=== PATIENT | male | born 1950 | race Caucasian/White ===

== ENCOUNTER 2016-03-29 08:42 | Outpatient (RCR) | payer MEDICARE, MEDICAID ==
--- OUTSIDE RECORDS SUMMARY | 2016-03-29 08:45 | XMS REPORT | Continuity of Care Document ---
Author Author [facility] Organization [facility] Address Unknown Phone Unavailable Care Team Providers Care Clinical Trial Specialist Name Role Phone Jack HUFF DO PCP Insurance Providers Payer Name Policy Number Subscriber Name Relationship [employer] [id number] Rikki Manzo 18 Self / Same As Patient Medicaid [place] [id number] Rikki Manzo 18 Self / Same As Patient Problems No problem information available. Medications No medication information available. Social History Social History Problem Response Recorded Date/Time Recent Foreign Travel N SEE YARED 09/20/2015 8:39am Hospital Discharge Instructions No hospital discharge instructions. Plan of Care Prescriptions See Medication Section Functional Status No functional status results. Allergies, Adverse Reactions, Alerts No known allergies. Immunizations No immunization records. Vital Signs No known vital signs results. Results Laboratory Results Test Name Result Units Flags Reference Collection Date/Time Result Date/ Time Comments White Blood Count 5.3 10^3/uL 4.3-11.0 09/20/2015 8:57am 09/20/2015 9: 14am Red Blood Count 4.40 10^6/uL 4.35-5.85 09/20/2015 8:57am 09/20/2015 9: 14am Hemoglobin 14.0 G/DL 13.3-17.7 09/20/2015 8:57am 09/20/2015 9:14am Hematocrit 40 % 40-54 09/20/2015 8:57am 09/20/2015 9:14am Mean Corpuscular Volume 91 FL 80-99 09/20/2015 8:57am 09/20/2015 9: 14am Mean Corpuscular Hemoglobin 32 PG 25-34 09/20/2015 8:57am 09/20/2015 9: 14am Mean Corpuscular Hemoglobin Concent 35 G/DL 32-36 09/20/2015 8:57am 02/2016 9:14am Red Cell Distribution Width 13.1 % 10.0-14.5 09/20/2015 8:57am 2015 9:14am Platelet Count 169 10^3/uL 130-400 09/20/2015 8:57am 09/20/2015 9:14am Mean Platelet Volume 10.4 FL 7.4-10.4 09/20/2015 8:57am 09/20/2015 9: 14am Neutrophils (%) (Auto) 49 % 42-75 09/20/2015 8:57am 09/20/2015 9:14am Lymphocytes (%) (Auto) 37 % 12-44 09/20/2015 8:57am 09/20/2015 9:14am Monocytes (%) (Auto) 8 % 0-12 09/20/2015 8:57am 09/20/2015 9:14am Eosinophils (%) (Auto) 6 % 0-10 09/20/2015 8:57am 09/20/2015 9:14am Basophils (%) (Auto) 1 % 0-10 09/20/2015 8:57am 09/20/2015 9:14am Neutrophils # (Auto) 2.6 X 10^3 1.8-7.8 09/20/2015 8:57am 09/20/2015 9: 14am Lymphocytes # (Auto) 2.0 X 10^3 1.0-4.0 09/20/2015 8:57am 09/20/2015 9: 14am Monocytes # (Auto) 0.4 X 10^3 0.0-1.0 09/20/2015 8:57am 09/20/2015 9: 14am Eosinophils # (Auto) 0.3 10^3/uL 0.0-0.3 09/20/2015 8:57am 09/20/2015 9 :14am Basophils # (Auto) 0.0 10^3/uL 0.0-0.1 09/20/2015 8:57am 09/20/2015 9: 14am Sodium Level 138 MMOL/L 135-145 09/20/2015 8:57am 09/20/2015 9:31am Potassium Level 4.1 MMOL/L 3.6-5.0 09/20/2015 8:57am 09/20/2015 9:31am Chloride Level 105 MMOL/L 98-107 09/20/2015 8:57am 09/20/2015 9:31am Carbon Dioxide Level 21 MMOL/L 21-32 09/20/2015 8:57am 09/20/2015 9: 31am Anion Gap 12 MMOL/L 5-14 09/20/2015 8:57am 09/20/2015 9:31am Blood Urea Nitrogen 17 MG/DL 7-18 09/20/2015 8:57am 09/20/2015 9:31am Creatinine 0.79 MG/DL 0.60-1.30 09/20/2015 8:57am 09/20/2015 9:31am BUN/Creatinine Ratio 22 09/20/2015 8:57am 09/20/2015 9:31am Estimat Glomerular Filtration Rate > 60 09/20/2015 8:57am 2015 9:31am GFR INTERPRETIVE DATA UNITS FOR ESTIMATED GFR (eGFR): mL/min/1.73 M2 REFERENCE RANGE FOR ESTIMATED GFR (eGFR) eGFR NORMAL eGFR >60 MODERATELY DECREASED eGFR 30-59 SEVERLY DECREASED eGFR 15-29 KIDNEY FAILURE <15 (OR DIALYSIS) Glucose Level 206 MG/DL H 70-105 09/20/2015 8:57am 09/20/2015 9:31am Calcium Level 9.0 MG/DL 8.5-10.1 09/20/2015 8:57am 09/20/2015 9:31am Total Bilirubin 1.4 MG/DL H 0.1-1.0 09/20/2015 8:57am 09/20/2015 9:31am Alkaline Phosphatase 55 U/L 40-136 09/20/2015 8:57am 09/20/2015 9:31am Aspartate Amino Transf (AST/SGOT) 31 U/L 5-34 09/20/2015 8:57am 2015 9:31am Alanine Aminotransferase (ALT/SGPT) 46 U/L 0-55 09/20/2015 8:57am 09/19 9:31am Lactate Dehydrogenase 171 U/L 125-220 09/20/2015 8:57am 09/20/2015 9: 31am Total Protein 6.4 G/DL 6.4-8.2 09/20/2015 8:57am 09/20/2015 9:31am Albumin 4.2 G/DL 3.2-4.5 09/20/2015 8:57am 09/20/2015 9:31am Ozcp-2-Gztrnfzytuykv 1.73 mg/L 0.00-1.85 09/20/2015 8:57am 09/21/2015 8 :15am Test performed at [facility], CLIA# [id number] [place] [address] Procedures No known history of procedures. Encounters Encounter Location Arrival/Admit Date Discharge/Depart Date Attending Provider Discharged [facility] 09/20/15 8:40am 11:59pm CRUZITO LEDBETTER MD
[2016-03-29 09:02] LABS: BASOPHILS % (AUTO) 0 % (0-10); EOSINOPHILS # (AUTO) 0.4 10^3/uL (0.0-0.3); EOSINOPHILS % (AUTO) 5 % (0-10); LYMPHOCYTES # (AUTO) 2.9 X 10^3 (1.0-4.0); LYMPHOCYTES % (AUTO) 40 % (12-44); MEAN CORPUSCULAR HEMOGLOBIN 31 PG (25-34); MEAN CORPUSCULAR HGB CONC 34 G/DL (32-36); MEAN CORPUSCULAR VOLUME 91 FL (80-99); MEAN PLATELET VOLUME 10.1 FL (7.4-10.4); MONOCYTES # (AUTO) 0.4 X 10^3 (0.0-1.0); MONOCYTES % (AUTO) 6 % (0-12); NEUTROPHILS # (AUTO) 3.5 X 10^3 (1.8-7.8); NEUTROPHILS % (AUTO) 49 % (42-75); PLATELET COUNT 204 10^3/uL (130-400); RED BLOOD COUNT 4.34 10^6/uL (4.35-5.85); RED CELL DISTRIBUTION WIDTH 12.6 % (10.0-14.5); WHITE BLOOD COUNT 7.1 10^3/uL (4.3-11.0)
[2016-03-29 09:40] LABS: ALANINE AMINOTRANSFERASE 36 U/L (0-55); ALBUMIN 4.2 G/DL (3.2-4.5); ANION GAP 9 MMOL/L (5-14); ASPARTATE AMINO TRANSFERASE 27 U/L (5-34); BILIRUBIN,TOTAL 1.9 MG/DL (0.1-1.0); BLOOD UREA NITROGEN 13 MG/DL (7-18); BUN/CREATININE RATIO 15; CALCIUM 8.9 MG/DL (8.5-10.1); CARBON DIOXIDE 24 MMOL/L (21-32); CHLORIDE 106 MMOL/L (98-107); CREATININE SERUM 0.88 MG/DL (0.60-1.30); GFR ESTIMATED > 60; GLUCOSE 130 MG/DL (70-105); LACTATE DEHYDROGENASE 192 U/L (125-220); POTASSIUM 4.2 MMOL/L (3.6-5.0); SODIUM 139 MMOL/L (135-145); TOTAL PROTEIN 6.4 G/DL (6.4-8.2)
== END 2016-06-27 | disposition home or self-care (01) ==
LOC: ONC 08:42
PROVIDERS: ATTEND Internal Medicine Hematology & Oncology
DX: C91.10 Chronic lymphocytic leukemia of B-cell type not having achieved remission (principal); J44.9 Chronic obstructive pulmonary disease, unspecified; F32.9 Major depressive disorder, single episode, unspecified; I48.91 Unspecified atrial fibrillation; Z79.899 Other long term (current) drug therapy
CPT/HCPCS: 36415; 80053; 82232; 83615; 85025; 99213

== ENCOUNTER → 2016-07-27 | Outpatient (CLI) | payer MEDICARE, MEDICAID ==
--- NOTE | 2016-07-30 09:41 | ECHOCARDIOGRAPHY REPORT ---
DATE OF SERVICE: 07/27/2016 REFERRING PHYSICIAN: Dr. Canelo D.O. MEASUREMENT: LVID end-diastolic 5.5. IVS thickness 1.2, LVPW thickness 1.0, left atrial diameter 3.3, ejection fraction 45 to 50%. FINDINGS: 1. Technically difficult study. 2. The left ventricle is normal in size, endocardium was not well visualized in all segment, I am suspecting hypokinesia at the apical area and anterior apical area, although it was not well visualized, patient was in atrial fibrillation with borderline tachycardia. Overall, systolic function is preserved in the lower normal limit. Estimated ejection fraction 45 to 50%. 3. The left atrium is normal in size. No clot or thrombus was seen within the left atrium. 4. The right atrium and right ventricle are normal in size. No clot or thrombus was seen within the right side. 5. Mitral valve is normal in morphology with mild mitral regurgitation noted by color Doppler flow. No mitral valve prolapse. No mitral valve stenosis. 6. Aortic valve is calcified. There is no significant aortic valve stenosis or regurgitation was seen. 7. Tricuspid valve is normal in morphology with mild tricuspid regurgitation noted by color Doppler flow. Doppler across the tricuspid valve estimated pulmonary artery pressure of 10+ right atrial pressure. 8. Pulmonic valve is functioning normally. 9. No pericardial effusion. CONCLUSION: 1. Technically difficult study. 2. Normal left ventricular size, endocardium was not well visualized in all segments, questionable hypokinesia was noted at the apex and anteroapical segment with systolic function preserved in the lower normal limit. Estimated ejection fraction 45 to 50%, I recommend reevaluating echo or evaluating MUGA scan. 3. Aortic valve sclerosis, no aortic stenosis. 4. Mild mitral and tricuspid regurgitation. 5. Estimated pulmonary artery pressure of 20 mmHg. Job ID: [id number] DocumentID: [id number] Dictated Date: 07/30/2016 08:08:01 Singe Machine Operator Date: 07/30/2016 08:42:14 Dictated By: JASMINA SHARMA MD
== END ==
LOC: CARD 10:00
PROVIDERS: ATTEND Internal Medicine Cardiovascular Disease
DX: I48.0 Paroxysmal atrial fibrillation (principal); D80.1 Nonfamilial hypogammaglobulinemia; J44.9 Chronic obstructive pulmonary disease, unspecified; C91.10 Chronic lymphocytic leukemia of B-cell type not having achieved remission
CPT/HCPCS: 93306

== ENCOUNTER 2016-09-27 09:48 | Outpatient (RCR) | payer MEDICARE, MEDICAID ==
[2016-09-27 09:54] LABS: BASOPHILS % (AUTO) 0 % (0-10); EOSINOPHILS # (AUTO) 0.5 10^3/uL (0.0-0.3); EOSINOPHILS % (AUTO) 6 % (0-10); LYMPHOCYTES # (AUTO) 3.4 X 10^3 (1.0-4.0); LYMPHOCYTES % (AUTO) 42 % (12-44); MEAN CORPUSCULAR HEMOGLOBIN 31 PG (25-34); MEAN CORPUSCULAR HGB CONC 33 G/DL (32-36); MEAN CORPUSCULAR VOLUME 93 FL (80-99); MEAN PLATELET VOLUME 9.7 FL (7.4-10.4); MONOCYTES # (AUTO) 0.6 X 10^3 (0.0-1.0); MONOCYTES % (AUTO) 7 % (0-12); NEUTROPHILS # (AUTO) 3.8 X 10^3 (1.8-7.8); NEUTROPHILS % (AUTO) 45 % (42-75); PLATELET COUNT 189 10^3/uL (130-400); RED BLOOD COUNT 4.43 10^6/uL (4.35-5.85); RED CELL DISTRIBUTION WIDTH 13.3 % (10.0-14.5); WHITE BLOOD COUNT 8.3 10^3/uL (4.3-11.0)
[2016-09-27 10:30] LABS: ALANINE AMINOTRANSFERASE 29 U/L (0-55); ALBUMIN 4.1 GM/DL (3.2-4.5); ANION GAP 8 MMOL/L (5-14); ASPARTATE AMINO TRANSFERASE 22 U/L (5-34); BILIRUBIN,TOTAL 1.9 MG/DL (0.1-1.0); BLOOD UREA NITROGEN 15 MG/DL (7-18); BUN/CREATININE RATIO 17; CALCIUM 9.1 MG/DL (8.5-10.1); CARBON DIOXIDE 25 MMOL/L (21-32); CHLORIDE 107 MMOL/L (98-107); CREATININE SERUM 0.86 MG/DL (0.60-1.30); GFR ESTIMATED > 60; GLUCOSE 157 MG/DL (70-105); LACTATE DEHYDROGENASE 150 U/L (125-220); POTASSIUM 4.1 MMOL/L (3.6-5.0); SODIUM 140 MMOL/L (135-145); TOTAL PROTEIN 6.5 GM/DL (6.4-8.2)
[2016-10-25] MEDS ORDERED: ESCI10TA55 PO (12:23)
[2016-10-25] MEDS ORDERED: HYDR-3820 PO (12:23)
[2016-10-25] MEDS ORDERED: SOTA120T PO (13:20)
[2016-10-25] MEDS ORDERED: DIPH25TA31 PO (13:20)
[2016-10-25] MEDS ORDERED: ASPI-808 PO (13:20)
[2016-10-26] MEDS ORDERED: SOTA160T PO ×2 (09:50→09:52)
[2016-10-27] MEDS ORDERED: Sotalol Hcl PO (13:24)
[2016-10-27] MEDS ORDERED: APIX5TAB PO (13:24)
[2016-10-27] MEDS ORDERED: SOTA80TA PO (13:34)
== END 2016-12-08 | disposition home or self-care (01) ==
LOC: ONC 09:48
PROVIDERS: ATTEND Internal Medicine Hematology & Oncology
DX: C91.10 Chronic lymphocytic leukemia of B-cell type not having achieved remission (principal); J44.9 Chronic obstructive pulmonary disease, unspecified; F32.9 Major depressive disorder, single episode, unspecified; I48.91 Unspecified atrial fibrillation; Z79.899 Other long term (current) drug therapy
CPT/HCPCS: 36415; 80053; 83615; 85025; 99213

== ENCOUNTER 2016-10-25 11:00 | Inpatient (IN) | payer MEDICARE, MEDICAID ==
[2016-10-25] VITALS (13 sets, daily range): BP systolic 96–128; BP diastolic 67–94
[~2016-10-25] VITALS: Ht 177.8 cm; Wt 81.6 kg
[2016-10-25] MEDS ORDERED: NS (IVPB) 50 ML ONE ×2 (11:07→11:11)
[2016-10-25] MEDS ORDERED: CATHETER FLUSH 10 ML SYR IV PRN (11:15)
[2016-10-25] MEDS ORDERED: DILTIAZEM 25 MG/5 ML INJ (CARDIZEM) VIAL IVP NR (11:15)
[2016-10-25 11:44] LABS: MEAN PLATELET VOLUME 10.6 FL (7.4-10.4); RED BLOOD COUNT 4.35 10^6/uL (4.35-5.85); RED CELL DISTRIBUTION WIDTH 13.2 % (10.0-14.5)
[2016-10-25 12:05] LABS: ALANINE AMINOTRANSFERASE 27 U/L (0-55); ALBUMIN 4.1 GM/DL (3.2-4.5); ANION GAP 8 MMOL/L (5-14); ASPARTATE AMINO TRANSFERASE 30 U/L (5-34); BILIRUBIN,TOTAL 1.3 MG/DL (0.1-1.0); BLOOD UREA NITROGEN 12 MG/DL (7-18); BUN/CREATININE RATIO 16; CARBON DIOXIDE 21 MMOL/L (21-32); CHLORIDE 110 MMOL/L (98-107); CREATININE SERUM 0.77 MG/DL (0.60-1.30); GFR ESTIMATED > 60; GLUCOSE 119 MG/DL (70-105); POTASSIUM 4.8 MMOL/L (3.6-5.0); SODIUM 139 MMOL/L (135-145); TOTAL PROTEIN 6.7 GM/DL (6.4-8.2)
[2016-10-25] MEDS ORDERED: ESCI10TA55 PO (12:23)
[2016-10-25] MEDS ORDERED: HYDR-3820 PO (12:23)
[2016-10-25] MEDS: DILTIAZEM DRIP 100 MG in SODIUM CHLORIDE (ADD-VANTAGE) 100 ML IV SCH ×2 (12:28→22:03)
[2016-10-25] MEDS ORDERED: DIPH25TA31 PO (13:20)
[2016-10-25] MEDS ORDERED: SOTA120T PO (13:20)
[2016-10-25] MEDS ORDERED: ASPI-808 PO (13:20)
[2016-10-25 13:27] LABS: THYROID STIMULATING HORMONE 0.91 UIU/ML (0.35-4.94); TROPONIN I < 0.30 NG/ML (<0.30)
[2016-10-25] MEDS: ENOXAPARIN 100 MG/1 ML (LOVENOX) SYR SC SCH (13:47)
[2016-10-25] MEDS: SOTALOL 80 MG (BETAPACE) TAB PO SCH (20:49)
[2016-10-26] VITALS (24 sets, daily range): BP systolic 97–146; BP diastolic 69–101
[2016-10-26] MEDS: ENOXAPARIN 100 MG/1 ML (LOVENOX) SYR SC SCH (01:08)
[2016-10-26 04:13] LABS: BASOPHILS % (AUTO) 0 % (0-10); EOSINOPHILS # (AUTO) 0.7 10^3/uL (0.0-0.3); EOSINOPHILS % (AUTO) 8 % (0-10); LYMPHOCYTES # (AUTO) 4.7 X 10^3 (1.0-4.0); LYMPHOCYTES % (AUTO) 53 % (12-44); MEAN CORPUSCULAR HEMOGLOBIN 31 PG (25-34); MEAN CORPUSCULAR HGB CONC 33 G/DL (32-36); MEAN CORPUSCULAR VOLUME 95 FL (80-99); MEAN PLATELET VOLUME 10.7 FL (7.4-10.4); MONOCYTES # (AUTO) 0.5 X 10^3 (0.0-1.0); MONOCYTES % (AUTO) 6 % (0-12); NEUTROPHILS # (AUTO) 2.9 X 10^3 (1.8-7.8); NEUTROPHILS % (AUTO) 33 % (42-75); PLATELET COUNT 181 10^3/uL (130-400); RED BLOOD COUNT 4.19 10^6/uL (4.35-5.85); RED CELL DISTRIBUTION WIDTH 13.3 % (10.0-14.5); WHITE BLOOD COUNT 8.7 10^3/uL (4.3-11.0)
[2016-10-26 04:41] LABS: ANION GAP 12 MMOL/L (5-14); BLOOD UREA NITROGEN 13 MG/DL (7-18); BUN/CREATININE RATIO 17; CALCIUM 9.2 MG/DL (8.5-10.1); CARBON DIOXIDE 21 MMOL/L (21-32); CHLORIDE 108 MMOL/L (98-107); CREATININE SERUM 0.78 MG/DL (0.60-1.30); GFR ESTIMATED > 60; GLUCOSE 117 MG/DL (70-105); MAGNESIUM 2.1 MG/DL (1.8-2.4); PHOSPHORUS 3.5 MG/DL (2.3-4.7); POTASSIUM 3.7 MMOL/L (3.6-5.0); SODIUM 141 MMOL/L (135-145)
[2016-10-26] MEDS: MAGNESIUM 1 GM/100 ML IVPB 100 ML IV SCH (04:51)
[2016-10-26] MEDS: POTASSIUM CL 10MEQ/50ML IVPB 50 ML IV SCH (04:51)
[2016-10-26] MEDS: KCL 20 MEQ TAB (K-DUR) PO SCH (04:52)
--- NOTE | 2016-10-26 07:51 | Diagnostic Imaging Report ---
INDICATION: Atrial fibrillation with rapid ventricular response. TECHNIQUE: Single view chest 5:45 AM. CORRELATION STUDY: None FINDINGS: Heart size is enlarged. Vasculature slightly prominent without evidence of overt failure. Lung davidson overall generally clear. No definitive infiltrate. IMPRESSION: 1. Mild cardiac enlargement and vasculature. However, no evidence for overt failure at this time. Dictated by: Dictated on workstation # [id number]
[2016-10-26] MEDS: SOTALOL 80 MG (BETAPACE) TAB PO SCH ×2 (08:11→20:30)
--- NOTE | 2016-10-26 09:42 | Cardiology History & Physical ---
HPI-Cardiology Cardiology Consultation Date of Consultation 10/26/16 Date of Admission Time Seen by Provider: 09:37 Indication: atrial fibrillation HPI 66 years old gentleman with history of paroxysmal atrial fibrillation, seen in my office and noted to be in atrial flutter ablation without ventricular response, has been having Chest tightness, shortness of breath and fatigue with loss of energy. I discussed with him the management plan, he agreed on being admitted, started on Cardizem and digoxin, heart rate has slowed down without conversion to sinus rhythm. This morning I visited with the patient and discussed doing electrical cardioversion. PMH-Cardiology Immunizations Up To Date Date of Pneumonia Vaccine: Oct 26, 2015 Seasonal Allergies Seasonal Allergies: Yes Cardiovascular Cardiac Disorders: Atrial Fibrillation Genitourinary Genitourinary Disorders: Bladder Infection, Kidney Stones Gastrointestinal Gastrointestinal Disorders: Gastroesophageal Reflux, Polyps HEENT Loss of Vision: Left Hearing Impairment: Denies Cancer Cancer: Leukemia Psychosocial Behavioral Health Disorders: Sleep Difficulties, Anxiety, Depression Blood Transfusions Adverse Reaction to a Blood Tr: No Other PMHx Other PMHx: past medical history as discussed below Social History Patient Social History Marrital Status: Employed/Student: employed Alcohol Use: Denies Use Recreational Drug Use: No Smoking: Never smoker Recent Foreign Travel: No Contact w/other who traveled: No Recent Infectious Disease Expo: No Family Hx Family History: Cardiovascular disease 19 FATHER Diabetes mellitus 19 FATHER G8 SISTER G8 SISTER G8 SISTER FH: CHF (congestive heart failure) G8 SISTER FH: atrial fibrillation 19 FATHER Fatty liver G8 BROTHER TIAs 19 MOTHER ROS-Cardiology Review of Systems General: No Chills, No Night Sweats, Fatigue, Malaise, No Appetite HEENT: No Head Aches, No Visual Changes, No Eye Pain, No Ear Pain, No Dysphasia , No Sinus Congestion, No Post Nasal Drip, No Sore Throat Pulmonary: Dyspnea, No Cough, No Pleuritic Chest Pain Cardiovascular: Chest Pain, Palpitations, No: Orthopnea, Paroxysmal Noc. Dyspnea, Edema, Lt Headedness Gastrointestinal: No: Nausea, Vomiting, Abdominal Pain, Diarrhea, Constipation , Melena, Hematochezia Genitourinary: No Dysuria, No Frequency, No Incontinence, No Hematuria, No Retention Musculoskeletal: No: neck pain, shoulder pain, arm pain, back pain, hand pain, leg pain, foot pain Neurological: No: Weakness, Numbness, Incoordination, Change in speech, Confusion, Seizures Home Medications & Allergies Allergies: Coded Allergies: No Known Drug Allergies (Unverified , 08/21/13) Home Medication List Reviewed: Yes Exam-Cardiology Vital Signs Vital Signs Date Time Temp Pulse Resp B/P (MAP) Pulse Ox O2 Delivery O2 Flow Rate FiO2 10/26/16 08:10 97.8 73 9 112/82 95 Room Air Exam General Appearance: Alert, Oriented X3, Cooperative, No Acute Distress HEENT: Atraumatic, PERRLA Respiratory: Clear to Auscultation, Normal Air Movement Cardiovascular: Normal S1, Normal S2, No Murmurs, Other (atrial fibrillation) Abdominal: Normal Bowel Sounds, Soft, No Tenderness, No Hepatosplenomegaly, No Masses Extremities: No Clubbing, No Cyanosis, No Edema, Normal Pulses, No Tenderness/ Swelling Skin: No Rashes, No Breakdown, No Significant Lesion Neuro: Normal Gait, Normal Speech, Strength at 5/5 X4 Ext, Normal Tone, Sensation Intact Psych/Mental Status: Mental Status NL, Mood NL Results Labs Labs Laboratory Tests 10/25/16 11:35: White Blood Count 9.0, Red Blood Count 4.35, Hemoglobin 13.6, Hematocrit 41, Mean Corpuscular Volume 94, Mean Corpuscular Hemoglobin 31, Mean Corpuscular Hemoglobin Concent 33, Red Cell Distribution Width 13.2, Platelet Count 187, Mean Platelet Volume 10.6H, Sodium Level 139, Potassium Level 4.8, Chloride Level 110H, Carbon Dioxide Level 21, Anion Gap 8, Blood Urea Nitrogen 12, Creatinine 0.77, Estimat Glomerular Filtration Rate > 60, BUN/Creatinine Ratio 16, Glucose Level 119H, Calcium Level 9.0, Magnesium Level 2.4, Total Bilirubin 1.3H, Aspartate Amino Transf (AST/SGOT) 30, Alanine Aminotransferase (ALT/SGPT) 27, Alkaline Phosphatase 48, Troponin I < 0.30, B-Type Natriuretic Peptide 178.8H, Total Protein 6.7, Albumin 4.1, Thyroid Stimulating Hormone (TSH) 0.91 10/26/16 03:59: White Blood Count 8.7, Red Blood Count 4.19L, Hemoglobin 13.1L, Hematocrit 40, Mean Corpuscular Volume 95, Mean Corpuscular Hemoglobin 31, Mean Corpuscular Hemoglobin Concent 33, Red Cell Distribution Width 13.3, Platelet Count 181, Mean Platelet Volume 10.7H, Sodium Level 141, Potassium Level 3.7, Chloride Level 108H, Carbon Dioxide Level 21, Anion Gap 12, Blood Urea Nitrogen 13, Creatinine 0.78, Estimat Glomerular Filtration Rate > 60, BUN/Creatinine Ratio 17, Glucose Level 117H, Calcium Level 9.2, Magnesium Level 2.1, Neutrophils (%) (Auto) 33L, Lymphocytes (%) (Auto) 53H, Monocytes (%) (Auto) 6, Eosinophils (%) (Auto) 8, Basophils (%) (Auto) 0, Neutrophils # (Auto) 2.9, Lymphocytes # (Auto ) 4.7H, Monocytes # (Auto) 0.5, Eosinophils # (Auto) 0.7H, Basophils # (Auto) 0.0, Phosphorus Level 3.5 A/P-Cardiology Admission Diagnosis Chest pain nonspecific etiology Paroxysmal atrial fibrillation Congestive heart failure acute left ventricular systolic dysfunction, nonischemic cardiomyopathy Palpitation Assessment/Plan Chest pain, nonspecific etiology-no active chest pain at this time, EKG and cardiac enzymes did not show any acute abnormality, planning to do stress test as an outpatient. Paroxysmal atrial fibrillation, maintained on sotalol 60 mg daily, I increased the dose to 120 mg daily and I will monitor QT interval, planning to do electrical cardioversion with ANIKET today. Congestive heart failure, acute left ventricular systolic dysfunction, not symptomatic, ejection fraction 40-45 percent probably tachycardia induced. Planning to do stress test as an outpatient, maintained on sotalol, I will add VIOLETA inhibitor as tolerated. Recurrent palpitation, probably secondary to episodes of atrial fibrillation, Continue to monitor [id number] score of 2, yearly risk of stroke without oral anticoagulation is 2.2 percent. patient was on aspirin 325 mg daily, planning to do ANIKET and electrical cardioversion then continued on oral anticoagulation. Prediabetes, followed and managed by primary care physician, diet controlled History of chronic lymphocytic leukemia, followed and managed by Dr. Kayley Larry History of anxiety, depression, maintained on Lexapro. Clinical Quality Measures DVT/VTE Risk/Contraindication: Risk Factor Score Per Nursin RFS Level Per Nursing on Admit: 2=Moderate JASMINA SHARMA MD Oct 26, 2016 09:42
[2016-10-26] MEDS ORDERED: SOTA160T PO ×2 (09:50→09:52)
[2016-10-26] MEDS ORDERED: NS IV 1000 ML 1,000 ML IV ONE (10:08)
--- NOTE | 2016-10-26 10:08 | Cardiac Procedure Note-CS/ASA ---
Pre-Procedure Note Pre-Op Procedure Note H&P Reviewed The H&P was reviewed, patient examined and no changes noted. Date H&P Reviewed: Oct 26, 2016 Time H&P Reviewed: 10:08 Conscious Sedation Pre-Proced Time Reviewed: 10:08 ASA Class: 3 Airway Mallampati Classification: (lower [place] appropriate class) I. II. III, IV Lungs Heart ASA score ASA 1: a normal healthy patient ASA 2: a patient with a mild systemic disease (mid diabetes, controlled hypertension, obesity x ASA 3: a patient with a severe systemic disease that limits activity (angina , COPD, prior Myocardial infarction) ASA 4: a patient with an incapacitating disease that is a constant threat to life (CHF, renal failure) ASA 5: a moribund patient not expected to survive 24 hrs. (ruptured aneurysm) ASA 6: a declared brain patient whose organs are being harvested. For emergent operations, add the letter E after the classification Grade 3 Sedation Plan: Analgesia, Amnesia, Plan communicated to team members, Discussed options with patient/fam, Discussed risks with patient/fam Note The patient is an appropriate candidate to undergo the planned procedure, sedation, and anesthesia. The patient immediately re-assessed prior to indication. JASMINA SHARMA MD Oct 26, 2016 10:08
[2016-10-26] MEDS ORDERED: LIDOCAINE TOPICAL 4% 50 ML BTL MM PRN (10:15)
[2016-10-26] MEDS ORDERED: LIDOCAINE 2% VISCOUS 15 ML UDC ONE (10:21)
[2016-10-26] MEDS ORDERED: NS IV 500 ML 500 ML ONE (10:27)
[2016-10-26] MEDS ORDERED: LIDOCAINE 2% VISCOUS 15 ML UDC PO PRN (11:00)
--- NOTE | 2016-10-26 11:44 | Cardiac Procedure Note ---
Cardiology Procedures Date of Procedure 10/26/16 patient was scheduled for ANIKET and electrical cardioversion, after calling anesthesia and getting ready for the procedure, patient received oral lidocaine , did not start the procedure, patient converted to sinus rhythm, procedure was canceled. JASMINA SHARMA MD Oct 26, 2016 11:44
[2016-10-26] MEDS: lisINopril 5 MG (PRINIVIL) TABLET PO SCH (17:51)
[2016-10-26] MEDS: APIXABAN 5 MG (ELIQUIS) TABLET PO SCH (20:30)
[2016-10-27] VITALS (15 sets, daily range): BP systolic 111–146; BP diastolic 67–97
[2016-10-27 04:27] LABS: BASOPHILS % (AUTO) 0 % (0-10); EOSINOPHILS # (AUTO) 0.5 10^3/uL (0.0-0.3); EOSINOPHILS % (AUTO) 7 % (0-10); LYMPHOCYTES % (AUTO) 52 % (12-44); MEAN CORPUSCULAR HEMOGLOBIN 32 PG (25-34); MEAN CORPUSCULAR HGB CONC 33 G/DL (32-36); MEAN CORPUSCULAR VOLUME 95 FL (80-99); MEAN PLATELET VOLUME 10.6 FL (7.4-10.4); MONOCYTES # (AUTO) 0.4 X 10^3 (0.0-1.0); MONOCYTES % (AUTO) 5 % (0-12); NEUTROPHILS # (AUTO) 2.7 X 10^3 (1.8-7.8); NEUTROPHILS % (AUTO) 36 % (42-75); PLATELET COUNT 162 10^3/uL (130-400); WHITE BLOOD COUNT 7.6 10^3/uL (4.3-11.0)
[2016-10-27 05:02] LABS: ANION GAP 7 MMOL/L (5-14); BLOOD UREA NITROGEN 13 MG/DL (7-18); BUN/CREATININE RATIO 17; CALCIUM 8.9 MG/DL (8.5-10.1); CARBON DIOXIDE 25 MMOL/L (21-32); CHLORIDE 109 MMOL/L (98-107); CREATININE SERUM 0.78 MG/DL (0.60-1.30); GFR ESTIMATED > 60; GLUCOSE 100 MG/DL (70-105); MAGNESIUM 2.2 MG/DL (1.8-2.4); PHOSPHORUS 3.9 MG/DL (2.3-4.7); POTASSIUM 3.9 MMOL/L (3.6-5.0); SODIUM 141 MMOL/L (135-145)
[2016-10-27] MEDS: POTASSIUM CL 10MEQ/50ML IVPB 50 ML IV SCH (05:05)
[2016-10-27] MEDS: KCL 20 MEQ TAB (K-DUR) PO SCH (05:05)
[2016-10-27] MEDS: MAGNESIUM 1 GM/100 ML IVPB 100 ML IV SCH (05:05)
--- NOTE | 2016-10-27 08:54 | Diagnostic Imaging Report ---
INDICATION: Atrial fibrillation. FINDINGS: The lungs are clear. The heart size and vascularity are within normal limits. There is no effusion or pneumothorax. IMPRESSION: No acute appearing abnormality. Dictated by: Dictated on workstation # [id number]
[2016-10-27] MEDS: APIXABAN 5 MG (ELIQUIS) TABLET PO SCH (09:10)
[2016-10-27] MEDS: lisINopril 5 MG (PRINIVIL) TABLET PO SCH (09:11)
[2016-10-27] MEDS: SOTALOL 80 MG (BETAPACE) TAB PO SCH (09:13)
[2016-10-27] MEDS ORDERED: APIX5TAB PO (13:24)
[2016-10-27] MEDS ORDERED: Sotalol Hcl PO (13:24)
--- NOTE | 2016-10-27 13:29 | Progress Note-Cardiology ---
Cardiology SOAP Progress Note Subjective: Feels well. No cp or palp or syncope or shortness of breath or leg swelling or other symptoms Wishes to go home States has been on sotalol for a number of years. Had been on 120 bid, then changed to 60 bid because of dizziness; this was changed back to [address] Morris on 10/25/16. He states he has tolerated the change in dose well Objective: I&O/Vital Signs Vital Sign - Last 12Hours 10/27/16 10/27/16 10/27/16 10/27/16 02:00 03:00 03:55 04:00 Temp 97.8 Pulse 69 75 Resp 29 26 B/P (MAP) 116/85 130/95 Pulse Ox 94 98 O2 Delivery Room Air Room Air Room Air Room Air 10/27/16 10/27/16 10/27/16 10/27/16 04:00 05:00 06:00 07:00 Pulse 56 57 57 59 Resp 16 25 13 B/P (MAP) 112/75 118/77 121/79 Pulse Ox 95 94 67 O2 Delivery Room Air Room Air Room Air 10/27/16 10/27/16 10/27/16 10/27/16 08:00 08:10 12:45 12:50 Temp 96.7 98.4 Pulse 57 Resp 25 B/P (MAP) 111/73 Pulse Ox 96 O2 Delivery Room Air Room Air Room Air Room Air Weight (Pounds): 180 Weight (Ounces): 9.0 Weight (Calculated Kilograms): 81.856926 Constitutional: AAO x 3, well-developed, well-nourished Respiratory: No accessory muscle use, No respiratory distress, lungs clear to percussion, lungs clear to auscultation, No stridor Cardiovascular: regular rate-rhythm, S1 and S2, systolic murmur (faint MICH at card base) Gastrointestional: No tender, soft, No guarding, No rebound, audible bowel sounds Extremities: No swelling, No clubbing, No cyanosis, No significant edema Neurologic/Psychiatric: oriented x 3, grossly intact, power is 5/5 both on sides Skin: No rash on exposed areas, No ulcerations on exposed areas Results/Procedures: Labs Laboratory Tests 10/27/16 04:06: White Blood Count 7.6, Red Blood Count 4.00L, Hemoglobin 12.6L, Hematocrit 38L, Mean Corpuscular Volume 95, Mean Corpuscular Hemoglobin 32, Mean Corpuscular Hemoglobin Concent 33, Red Cell Distribution Width 13.0, Platelet Count 162, Mean Platelet Volume 10.6H, Neutrophils (%) (Auto) 36L, Lymphocytes (%) (Auto) 52H, Monocytes (%) (Auto) 5, Eosinophils (%) (Auto) 7, Basophils (%) (Auto) 0, Neutrophils # (Auto) 2.7, Lymphocytes # (Auto) 4.0, Monocytes # (Auto) 0.4, Eosinophils # (Auto) 0.5H, Basophils # (Auto) 0.0, Sodium Level 141, Potassium Level 3.9, Chloride Level 109H, Carbon Dioxide Level 25, Anion Gap 7, Blood Urea Nitrogen 13, Creatinine 0.78, Estimat Glomerular Filtration Rate > 60, BUN/ Creatinine Ratio 17, Glucose Level 100, Calcium Level 8.9, Phosphorus Level 3.9 , Magnesium Level 2.2 Microbiology 10/25/16 MRSA Screen - Final, Complete MRSA not isolated Laboratory Tests 10/26/16 03:59 10/27/16 04:06 A/P: Assessment: Paroxysmal atrial fibrillation, maintaining NSR since 10/26/16 Chronic sotalol therapy. Dose increased during this hospitalization Borderline prolonged but stable QTc (around 500 msec) since admission and increase in the dose on 10/25/16 Impaired LVEF of 40-45%, felt to be tachycardia-related, VIOLETA-inhibitor added. Apixaban added for stroke prophylaxis History of chronic lymphocytic leukemia, followed and managed by Dr. Kayley Larry History of anxiety/depression for which he has been on Lexapro (being stopped at the time of discharge to avoid its effect on QT) Plan: Multiple issues reviewed and discussed He has been on sotalol for a number of years. He is on increased dose of sotalol since 10/25/16 QTc is borderline prolonged, but stable. Nevertheless, we are stopping Lexapro and reducing dose of sotalol to 80 mg bid (chronic home dose is 60 mg bid; was on 120 bid during this hospitalization) He is anxious to go home We have advised f/u with Dr Morris on 10/29/16 LO CERRATO MD [facility] Oct 27, 2016 13:29
[2016-10-27] MEDS ORDERED: SOTA80TA PO (13:34)
--- NOTE | 2016-10-27 13:45 | Cardiology Discharge Summary ---
Diagnosis/Chief Complaint Date of Admission Oct 25, 2016 at 11:00 Date of Discharge Final/Discharge Diagnosis Paroxysmal atrial fibrillation, maintaining NSR since 10/26/16 Chronic sotalol therapy. Dose increased during this hospitalization Borderline prolonged but stable QTc (around 500 msec) since admission and increase in the dose on 10/25/16 Impaired LVEF of 40-45%, felt to be tachycardia-related, VIOLETA-inhibitor added. Apixaban added for stroke prophylaxis History of chronic lymphocytic leukemia, followed and managed by Dr. Kayley Larry History of anxiety/depression for which he has been on Lexapro (being stopped at the time of discharge to avoid its effect on QT) Chief Complaint/HPI Chief Complaint/HPI Converted to NSR with increase in chronic sotalol dose (at time admission on ) He has been on sotalol for a number of years. He is on increased dose of sotalol since 10/25/16 QTc is borderline prolonged, but stable. Nevertheless, we are stopping Lexapro and reducing dose of sotalol to 80 mg bid (chronic home dose is 60 mg bid; was on 120 bid during this hospitalization) He is anxious to go home We have advised f/u with Dr Morris on 10/29/16 Discharge Summary Procedures None. Discussion & Recommendations Home Medications Reviewed patient Home Medication Reconciliation Form Discharge Home Medications: Reviewed and agree with Discharge Medication list on patient's Discharge Instruction sheet Clinical Quality Measures DVT/VTE Risk/Contraindication: Risk Factor Score Per Nursin RFS Level Per Nursing on Admit: 2=Moderate LO CERRATO MD FACP [facility]S Oct 27, 2016 13:44
--- NOTE | 2016-10-27 13:46 | Discharge Inst-Cardiology ---
Discharge Inst-Cardiac Discharge Medications New Medications: Sotalol HCl (Sotalol) 80 Mg Tablet 80 MG PO BID, #60 TAB 0 Refills Apixaban (Eliquis) 5 Mg Tablet 5 MG PO BID for 30 Days, #60 TAB 0 Refills Continued Medications: Diphenhydramine HCl (Diphenhydramine HCl) 25 Mg Tablet 25 MG PO TID PRN for RASH, TAB Hydrocodone/Acetaminophen (Hydrocodon-Acetaminophn 10-325) 1 Each Tablet 1 TAB PO Q4H PRN for PAIN-MODERATE Discontinued Medications: Escitalopram Oxalate (Escitalopram Oxalate) 10 Mg Tablet 5 MG PO BID TAKES 1/2 OF A (10 MG) TABLET Sotalol HCl (Sotalol) 120 Mg Tablet 60 MG PO DAILY TAKES 1/2 OF A (120 MG) TABLET Patient Instructions Patient Instructions: Home dose of sotalol is 80 mg po bid F/u with Dr Morris on 10/29/16 LO CERRATO MD [facility] Oct 27, 2016 13:46
== END 2016-10-27 14:25 | disposition home or self-care (01) | DRG 308 ==
LOC: ICU 11:00
PROVIDERS: ADMIT Internal Medicine Cardiovascular Disease; ATTEND Internal Medicine Cardiovascular Disease
DX: I48.0 Paroxysmal atrial fibrillation (principal); I48.92 Unspecified atrial flutter; I50.21 Acute systolic (congestive) heart failure; C91.10 Chronic lymphocytic leukemia of B-cell type not having achieved remission; I42.8 Other cardiomyopathies; I45.81 Long QT syndrome; R73.03 Prediabetes; F32.9 Major depressive disorder, single episode, unspecified; F41.9 Anxiety disorder, unspecified; Z79.899 Other long term (current) drug therapy
CPT/HCPCS: 36415; 71010; 80048; 80053; 83735; 83880; 84100; 84443; 84484; 85025; 85027; 87081; 93005; 93306

== ENCOUNTER → 2016-11-09 | Outpatient (CLI) | payer MEDICARE, MEDICAID ==
[~2016-11-09] MED LIST: APIX5TAB PO; ASPI-808 PO; CATHETER FLUSH 10 ML SYR IV PRN; DIPH25TA31 PO; ESCI10TA55 PO; HYDR-3820 PO; REGADENOSON 0.4 MG/5 ML SYR (LEXISCAN) IV ONE; SOTA120T PO; SOTA160T PO; SOTA80TA PO; Sotalol Hcl PO
[2016-11-09 08:06] VITALS: BP 115/81
--- NOTE | 2016-11-14 12:22 | STRESS TEST ---
DATE OF SERVICE: 11/09/2016 LEXISCAN MYOVIEW STRESS TEST REPORT TEST DATE: 11/09/2016 Baseline heart rate is 60%. Baseline blood pressure 126/82. Baseline EKG is sinus rhythm with no ischemic changes. In summary, the patient was injected with 10.92 mCi of technetium-99 Myoview and the resting images were obtained. Then, the patient received 0.4 mg of Lexiscan followed by 29.2 mCi of technetium-99 Myoview. Throughout the test, there were no EKG changes. The patient had mild shortness of breath that resolved spontaneously. The resting and stress images were reviewed and compared in the short axis, horizontal long axis, and vertical long axis views. Review of the images showed diaphragmatic attenuation with typical male pattern. No significant ischemia or infarction was seen. SSS is 2, SDS 2, TID value 0.95. On the gated images, the left ventricle appeared to be in normal size, calculated ejection fraction 54%. CONCLUSION: 1. The patient tolerated the Lexiscan well. 2. Diaphragmatic attenuation with typical male pattern with no significant ischemia or infarction on SPECT images. 3. Normal left ventricular size with normal contractility, calculated ejection fraction 54%. Job ID: [id number] DocumentID: [id number] Dictated Date: 11/13/2016 15:16:54 Cloth Bin Packer Date: 11/13/2016 17:16:16 Dictated By: JASMINA SHARMA MD
== END ==
LOC: CARD 06:45
PROVIDERS: ATTEND Physician Assistant
DX: I48.0 Paroxysmal atrial fibrillation (principal); R07.89 Other chest pain; R00.2 Palpitations; C91.10 Chronic lymphocytic leukemia of B-cell type not having achieved remission
CPT/HCPCS: 78452; 93017

== ENCOUNTER 2017-05-27 07:17 | Day surgery (SDC) | payer MEDICARE, MEDICAID ==
[2017-05-27] VITALS (28 sets, daily range): BP systolic 88–140; BP diastolic 66–105
[~2017-05-27] VITALS: Ht 177.8 cm; Wt 81.9 kg
[~2017-05-27 07:17] MED LIST changes: -CATHETER FLUSH 10 ML SYR IV PRN; -REGADENOSON 0.4 MG/5 ML SYR (LEXISCAN) IV ONE
[2017-05-27] MEDS ORDERED: LIDOCAINE 2% VISCOUS 15 ML UDC ONE (07:22)
--- OUTSIDE RECORDS SUMMARY | 2017-05-27 07:22 | XMS REPORT | Continuity of Care Document ---
Author Author [facility] Organization [facility] Address Unknown Phone Unavailable Allergies Active Description Code Type Severity Reaction Onset Reported/Identified Relationship to Patient Clinical Status Yes No Known Drug Allergies [id number] Drug Allergy Unknown N/A 08/21/2013 Medications There is no data. Problems Date Dx Coded Attending Type Code Diagnosis Diagnosed By 11/18/2013 CRUZITO LEDBETTER MD Ot 204.10 CHRONIC LYMPHOID LEUKEMIA, W/O MENTION A 11/18/2013 CRUZITO LEDBETTER MD Ot 311 DEPRESSIVE DISORDER NEC 11/18/2013 CRUZITO LEDBETTER MD Ot 427.31 ATRIAL FIBRILLATION 11/18/2013 CRUZITO LEDBETTER MD Ot 496 CHR AIRWAY OBSTRUCT NEC 11/18/2013 CRUZITO LEDBETTER MD Ot V12.61 PERSONAL HISTORY, PNEUMONIA (RECURRENT) 11/18/2013 CRUZITO LEDBETTER MD Ot V58.11 ENCOUNTER FOR ANTINEOPLASTIC CHEMOTHERAP 02/03/2014 CRUZITO LEDBETTER MD Ot 204.10 02/03/2014 CRUZITO LEDBETTER MD Ot 311 02/03/2014 CRUZITO LEDBETTER MD Ot 427.31 02/03/2014 CRUZITO LEDBETTER MD Ot 496 02/03/2014 CRUZITO LEDBETTER MD Ot V12.61 02/03/2014 CRUZITO LEDBETTER MD Ot V58.11 02/22/2014 CRUZITO LEDBETTER MD Ot 204.10 CHRONIC LYMPHOID LEUKEMIA, W/O MENTION A 02/22/2014 CRUZITO LEDBETTER MD Ot 311 DEPRESSIVE DISORDER NEC 02/22/2014 CRUZITO LEDBETTER MD Ot 427.31 ATRIAL FIBRILLATION 02/22/2014 CRUZITO LEDBETTER MD Ot 496 CHR AIRWAY OBSTRUCT NEC 02/22/2014 CRUZITO LEDBETTER MD Ot V04.81 ND FOR PROPHYLACTIC VACCIN AND INOCULATI 02/22/2014 CRUZITO LEDBETTER MD Ot V12.61 PERSONAL HISTORY, PNEUMONIA (RECURRENT) 02/22/2014 CRUZITO LEDBETTER MD Ot V58.11 ENCOUNTER FOR ANTINEOPLASTIC CHEMOTHERAP 02/23/2014 CRUZITO LEDBETTER MD Ot 204.10 02/23/2014 ANATOLY CAPUTO, CRUZITO Joyner Ot 311 02/23/2014 ANATOLY CAPUTO, CRUZITO Anya Ot 427.31 02/23/2014 ANATOLY CAPUTO, CRUZITO Joyner Ot 496 02/23/2014 ANATOLY CAPUTO, CRUZITO K Ot V12.61 02/23/2014 ANATOLY CAPUTO, CRUZITO K Ot V58.11 02/23/2014 ANATOLY CAPUTO, CRUZITO Joyner Ot 204.10 02/23/2014 ANATOLY CAPUTO, CRUZITO K Ot 311 02/23/2014 ANATOLY CAPUTO, CRUZITO K Ot 427.31 02/23/2014 NAATOLY CAPUTO, CRUZITO K Ot 496 02/23/2014 ANATOLY CAPUTO, CRUZITO K Ot V12.61 02/23/2014 ANATOLY CAPUTO, CRUZITO K Ot V58.11 02/26/2014 ANATOLY CAPUTO, CRUZITO Joyner Ot 204.10 02/26/2014 ANATOLY CAPUTO, CRUZITO K Ot 311 02/26/2014 ANATOLY CAPUTO, CRUZITO Joyner Ot 427.31 02/26/2014 ANATOLY CAPUTO, CRUZITO Joyner Ot 496 02/26/2014 ANATOLY CAPUTO, CRUZITO Joyner Ot V12.61 02/26/2014 ANATOLY CAPUTO, CRUZITO K Ot V58.11 03/01/2014 ANATOLY CAPUTO, CRUZITO Joyner Ot 204.10 03/01/2014 ANATOLY CAPUTO, CRUZITO Joyner Ot 311 03/01/2014 ANATOLY CAPUTO, CRUZITO K Ot 427.31 03/01/2014 ANATOLY CAPUTO, CRUZITO Joyner Ot 496 03/01/2014 ANATOLY CAPUTO, CRUZITO Joyner Ot V12.61 03/01/2014 ANATOLY CAPUTO, CRUZITO Joyner Ot V58.11 04/08/2014 ANATOLY CAPUTO, CRUZITO Joyner Ot 204.10 04/08/2014 ANATOLY CAPUTO, CRUZITO Joyner Ot 311 04/08/2014 ANATOLY CAPUTO, CRUZITO Joyner Ot 427.31 04/08/2014 ANATOLY CAPUTO, CRUZITO Joyner Ot 496 04/08/2014 ANATOLY CAPUTO, CRUZITO K Ot V12.61 04/19/2014 ANATOLY CAPUTO, CRUZITO K Ot 204.10 04/19/2014 ANATOLY CAPUTO, CRUZITO Joyner Ot 311 04/19/2014 ANATOLY CAPUTO, CRUZITO K Ot 427.31 04/19/2014 ANATOLY CAPUTO, CRUZITO Joyner Ot 496 04/19/2014 ANATOLY CAPUTO, CRUZITO K Ot V12.61 05/27/2014 ANATOLY CAPUTO, CRUZITO K Ot 204.10 CHRONIC LYMPHOID LEUKEMIA, W/O MENTION A 05/27/2014 ANATOLY CAPUTO, CRUZITO K Ot 311 DEPRESSIVE DISORDER NEC 05/27/2014 ANATOLY CAPUTO, CRUZITO K Ot 427.31 ATRIAL FIBRILLATION 05/27/2014 NAATOLY CAPUTO, CRUZITO oJyner Ot 496 CHR AIRWAY OBSTRUCT NEC 05/27/2014 ANATOLY CAPUTO, CRUZITO Joyner Ot V12.61 PERSONAL HISTORY, PNEUMONIA (RECURRENT) 07/14/2014 ANATOLY CAPUTO, CRUZITO Joyner Ot 204.10 07/14/2014 ANATOLY CAPUTO, CRUZITO Joyner Ot 311 07/14/2014 ANATOLY CAPUTO, CRUZITO Joyner Ot 427.31 07/14/2014 ANATOLY CAPUTO, CRUZITO Joyner Ot 496 07/14/2014 ANATOLY CAPUTO, CRUZITO Joyner Ot V12.61 07/21/2014 ANATOLY CAPUTO, CRUZITO Joyner Ot 204.10 07/21/2014 ANATOLY CAPUTO, CRUZITO Joyner Ot 311 07/21/2014 ANATOLY CAPUTO, CRUZITO Joyner Ot 427.31 07/21/2014 ANATOLY CAPUTO, CRUZITO Joyner Ot 496 07/21/2014 ANATOLY CAPUTO, CRUZITO Joyner Ot V12.61 07/22/2014 ANATOLY CAPUTO, CRUZITO Joyner Ot 204.10 07/22/2014 ANATOLY CAPUTO, CRUZITO Joyner Ot 311 07/22/2014 ANATOLY CAPUTO, CRUZITO Joyner Ot 427.31 07/22/2014 ANATOLY CAPUTO, CRUZITO Joyner Ot 496 07/22/2014 ANATOLY CAPUTO, CRUZITO K Ot V12.61 09/01/2014 ANATOLY CAPUTO, CRUZITO Joyner Ot 204.10 09/01/2014 ANATOLY CAPUTO, CRUZITO Joyner Ot 311 09/01/2014 ANATOLY CAPUTO, CRUZITO Joyner Ot 427.31 09/01/2014 ANATOLY CAPUTO, CRUZITO Joyner Ot 496 09/01/2014 ANATOLY CAPUTO, CRUZITO Joyner Ot V12.61 09/29/2014 ANATOLY CAPUTO, CRUZITO Joyner Ot 204.10 09/29/2014 ANATOLY CAPUTO, CRUZITO Joyner Ot 311 09/29/2014 ANATOLY CAPUTO, CRUZITO Joyner Ot 427.31 09/29/2014 ANATOLY CAPUTO, CRUZITO Joyner Ot 496 09/29/2014 ANATOLY CAPUTO, CRUZITO Joyner Ot V12.61 10/19/2014 ANATOLY CAPUTO, CRUZITO K Ot 204.10 CHRONIC LYMPHOID LEUKEMIA, W/O MENTION A 10/19/2014 ANATOLY CAPUTO, CRUZITO Joyner Ot 311 DEPRESSIVE DISORDER NEC 10/19/2014 ANATOLY CAPUTO, CRUZITO Joyner Ot 427.31 ATRIAL FIBRILLATION 10/19/2014 ANATOLY CAPUTO, CRUZITO Joyner Ot 496 CHR AIRWAY OBSTRUCT NEC 10/19/2014 ANATOLY CAPUTO, CRUZITO K Ot V12.61 PERSONAL HISTORY, PNEUMONIA (RECURRENT) 10/20/2014 ANATOLY CAPUTO, CRUZITO K Ot 204.10 10/20/2014 ANATOLY CAPUTO, CRUZITO Joyner Ot 311 10/20/2014 ANATOLY CAPUTO, CRUZITO Joyner Ot 427.31 10/20/2014 ANATOLY CAPUTO, CRUZITO Joyner Ot 496 10/20/2014 ANATOLY CAPUTO, CRUZITO Joyner Ot V12.61 10/28/2014 ANATOLY CAPUTO, CRUZITO Joyner Ot 204.10 10/28/2014 ANATOLY CAPUTO, CRUZITO Joyner Ot 311 10/28/2014 ANATOLY CAPUTO, CRUZITO Joyner Ot 427.31 10/28/2014 ANATOLY CAPUTO, CRUZITO Joyner Ot 496 10/28/2014 ANATOLY CAPUTO, CRUZITO Joyner Ot V12.61 11/01/2014 ANATOLY CAPUTO, CRUZITO Joyner Ot 204.10 11/01/2014 ANATOLY CAPUTO, CRUZITO Joyner Ot 789.2 11/01/2014 PADMA ACEVEDO DATA PROCESSING AUDITOR Ot 204.10 11/01/2014 PADMA ACEVEDO DATA PROCESSING AUDITOR Ot 311 11/01/2014 PADMA ACEVEDO DATA PROCESSING AUDITOR Ot 427.31 11/01/2014 PADMA ACEVEDO DATA PROCESSING AUDITOR Ot 496 11/01/2014 PADMA ACEVEDO DATA PROCESSING AUDITOR Ot V12.61 11/01/2014 ANATOLY CAPUTO, CRUZITO Joyner Ot 204.10 11/01/2014 ANATOLY CAPUTO, CRUZITO Joyner Ot 311 11/01/2014 ANATOLY CAPUTO, CRUZITO Joyner Ot 427.31 11/01/2014 ANATOLY CAPUTO, CRUZITO Joyner Ot 496 11/01/2014 ANATOLY CAPUTO, CRUZITO Joyner Ot V12.61 11/30/2014 ANATOLY CAPUTO, CRUZITO Joyner Ot 204.10 11/30/2014 ANATOLY CAPUTO, CRUZITO Joyner Ot 311 11/30/2014 ANATOLY CAPUTO, CRUZITO Joyner Ot 427.31 11/30/2014 ANATOLY CAPUTO, CRUZITO Joyner Ot 496 11/30/2014 ANATOLY CAPUTO, CRUZITO Joyner Ot V12.61 12/08/2014 ANATOLY CAPUTO, CRUZITO Joyner Ot 204.10 CHRONIC LYMPHOID LEUKEMIA, W/O MENTION A 12/08/2014 ANATOLY CAPUTO, CRUZITO Joyner Ot 311 DEPRESSIVE DISORDER NEC 12/08/2014 ANATOLY CAPUTO, CRUZITO Joyner Ot 427.31 ATRIAL FIBRILLATION 12/08/2014 ANATOLY CAPUTO, CRUZITO Joyner Ot 496 CHR AIRWAY OBSTRUCT NEC 12/08/2014 ANATOLY CAPUTO, CRUZITO Joyner Ot V12.61 PERSONAL HISTORY, PNEUMONIA (RECURRENT) 03/08/2015 ANATOLY CAPUTO, CRUZITO Joyner Ot C91.10 03/08/2015 ANATOLY CAPUTO, CRUZITO Joyner Ot F32.9 03/08/2015 ANATOLY CAPUTO, CRUZITO Joyner Ot I48.91 03/08/2015 ANATOLY CAPUTO, CRUZITO Joyner Ot J44.9 03/17/2015 ANATOLY CAPUTO, CRUZITO Joyner Ot C91.10 03/17/2015 ANATOLY CAPUTO, CRUZITO Joyner Ot F32.9 03/17/2015 ANATOLY CAPUTO, CRUZITO Joyner Ot I48.91 03/17/2015 ANATOLY CAPUTO, CRUZITO Joyner Ot J44.9 04/18/2015 ANATOLY CAPUTO, CRUZITO Joyner Ot 204.10 04/18/2015 ANATOLY CAPUTO, CRUZITO Joyner Ot 789.2 04/18/2015 PADMA ACEVEDO DATA PROCESSING AUDITOR Ot 204.10 04/18/2015 PADMA ACEVEDO DATA PROCESSING AUDITOR Ot 311 04/18/2015 PADMA ACEVEDO DATA PROCESSING AUDITOR Ot 427.31 04/18/2015 PADMA ACEVEDO DATA PROCESSING AUDITOR Ot 496 04/18/2015 PADMA ACEVEDO DATA PROCESSING AUDITOR Ot V12.61 04/18/2015 ANATOLY CAPUTO, CRUZITO Joyner Ot C91.10 04/18/2015 ANATOLY CAPUTO, CRUZITO Joyner Ot F32.9 04/18/2015 ANATOLY CAPUTO, CRUZITO Joyner Ot I48.91 04/18/2015 ANATOLY CAPUTO, CRUZITO Joyner Ot J44.9 04/24/2015 ANATOLY CAPUTO, CRUZITO Joyner Ot C91.10 CHRONIC LYMPHOCYTIC LEUK OF B-CELL TYPE 04/24/2015 ANATOLY CAPUTO, CRUZITO Joyner Ot F32.9 MAJOR DEPRESSIVE DISORDER, SINGLE EPISOD 04/24/2015 ANATOLY CAPUTO, CRUZITO Joyner Ot I48.91 UNSPECIFIED ATRIAL FIBRILLATION 04/24/2015 ANATOLY CAPUTO, CRUZITO Joyner Ot J44.9 CHRONIC OBSTRUCTIVE PULMONARY DISEASE, U 05/09/2015 ANATOLY CAPUTO, CRUZITO Joyner Ot C91.10 05/09/2015 CRUZITO LEDBETTER MD Ot F32.9 05/09/2015 CRUZITO LEDBETTER MD Ot I48.91 05/09/2015 ANATOLY CAPUTO, CRUZITO Joyner Ot J44.9 05/11/2015 CRUZITO LEDBETTER MD Ot R94.5 05/16/2015 CRUZITO LEDBETTER MD Ot 204.10 05/16/2015 ANATOLY CAPUTO, CRUZITO Joyner Ot 789.2 05/16/2015 PADMA ACEVEDO DATA PROCESSING AUDITOR Ot 204.10 05/16/2015 PADMA ACEVEDO S DATA PROCESSING AUDITOR Ot 311 05/16/2015 PADMA ACEVEDO S DATA PROCESSING AUDITOR Ot 427.31 05/16/2015 PADMA ACEVEDO DATA PROCESSING AUDITOR Ot 496 05/16/2015 QUENTIN ACEVEDOIDA Yasir DATA PROCESSING AUDITOR Ot V12.61 05/16/2015 ANATOLY CAPUTO, CRUZITO Joyner Ot R94.5 05/16/2015 CRUZITO LEDBETTER MD Ot C91.10 05/16/2015 CRUZITO LEDBETTER MD Ot F32.9 05/16/2015 ANATOLY CAPUTO, CRUZITO Joyner Ot I48.91 05/16/2015 ANATOLY CAPUTO, CRUZITO Joyner Ot J44.9 05/19/2015 CRUZITO LEDBETTER MD Ot C91.10 05/19/2015 CRUZITO LEDBETTER MD Ot F32.9 05/19/2015 CRUZITO LEDBETTER MD Ot I48.91 05/19/2015 CRUZITO LEDBETTER MD Ot J44.9 05/30/2015 CRUZITO LEDBETTER MD Ot R94.5 07/01/2015 CRUZITO LEDBETTER MD Ot C91.10 CHRONIC LYMPHOCYTIC LEUK OF B-CELL TYPE 07/01/2015 CRUZITO LEDBETTER MD Ot F32.9 MAJOR DEPRESSIVE DISORDER, SINGLE EPISOD 07/01/2015 CRUZITO LEDBETTER MD Ot I48.91 UNSPECIFIED ATRIAL FIBRILLATION 07/01/2015 CRUZITO LEDBETTER MD Ot J44.9 CHRONIC OBSTRUCTIVE PULMONARY DISEASE, U 07/01/2015 CRUZITO LEDBETTER MD Ot Z79.899 OTHER SKILLED NURSING (CURRENT) DRUG THERAPY 07/15/2015 CRUZITO LEDBETTER MD Ot C91.10 CHRONIC LYMPHOCYTIC LEUK OF B-CELL TYPE 07/15/2015 CRUZITO LEDBETTER MD Ot F32.9 MAJOR DEPRESSIVE DISORDER, SINGLE EPISOD 07/15/2015 CRUZITO LEDBETTER MD Ot I48.91 UNSPECIFIED ATRIAL FIBRILLATION 07/15/2015 CRUZITO LEDBETTER MD Ot J44.9 CHRONIC OBSTRUCTIVE PULMONARY DISEASE, U 07/15/2015 CRUZITO LEDBETTER MD Ot Z79.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 08/14/2015 CRUZITO LEDBETTER MD Ot C91.10 CHRONIC LYMPHOCYTIC LEUK OF B-CELL TYPE 08/14/2015 CRUZITO LEDBETTER MD Ot F32.9 MAJOR DEPRESSIVE DISORDER, SINGLE EPISOD 08/14/2015 CRUZITO LEDBETTER MD Ot I48.91 UNSPECIFIED ATRIAL FIBRILLATION 08/14/2015 CRUZITO LEDBETTER MD Ot J44.9 CHRONIC OBSTRUCTIVE PULMONARY DISEASE, U 08/14/2015 CRUZITO LEDBETTER MD Ot Z79.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 09/13/2015 CRUZITO LEDBETTER MD Ot C91.10 CHRONIC LYMPHOCYTIC LEUK OF B-CELL TYPE 09/13/2015 CRUZITO LEDBETTER MD Ot F32.9 MAJOR DEPRESSIVE DISORDER, SINGLE EPISOD 09/13/2015 CRUZITO LEDBETTER MD Ot I48.91 UNSPECIFIED ATRIAL FIBRILLATION 09/13/2015 CRUZITO LEDBETTER MD Ot J44.9 CHRONIC OBSTRUCTIVE PULMONARY DISEASE, U 09/13/2015 CRUZITO LEDBETTER MD Ot Z79.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 09/22/2015 CRUZITO LEDBETTER MD Ot C91.10 CHRONIC LYMPHOCYTIC LEUK OF B-CELL TYPE 09/22/2015 CRUZITO LEDBETTER MD Ot F32.9 MAJOR DEPRESSIVE DISORDER, SINGLE EPISOD 09/22/2015 CRUZITO LEDBETTER MD Ot I48.91 UNSPECIFIED ATRIAL FIBRILLATION 09/22/2015 CRUZITO LEDBETTER MD Ot J44.9 CHRONIC OBSTRUCTIVE PULMONARY DISEASE, U 09/22/2015 CRUZITO LEDBETTER MD Ot Z79.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 11/01/2015 CRUZITO LEDBETTER MD, Ot C91.10 CHRONIC LYMPHOCYTIC LEUK OF B-CELL TYPE 11/01/2015 CRUZITO LEDBETTER MD Ot F32.9 MAJOR DEPRESSIVE DISORDER, SINGLE EPISOD 11/01/2015 CRUZITO LEDBETTER MD Ot I48.91 UNSPECIFIED ATRIAL FIBRILLATION 11/01/2015 CRUZITO LEDBETTER MD Ot J44.9 CHRONIC OBSTRUCTIVE PULMONARY DISEASE, U 11/01/2015 CRUZITO LEDBETTER MD Ot Z79.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 11/29/2015 CRUZITO LEDBETTER MD Ot C91.10 CHRONIC LYMPHOCYTIC LEUK OF B-CELL TYPE 11/29/2015 CRUZITO LEDBETTER MD Ot F32.9 MAJOR DEPRESSIVE DISORDER, SINGLE EPISOD 11/29/2015 CRUZITO LEDBETTER MD Ot I48.91 UNSPECIFIED ATRIAL FIBRILLATION 11/29/2015 CRUZITO LEDBETTER MD Ot J44.9 CHRONIC OBSTRUCTIVE PULMONARY DISEASE, U 11/29/2015 CRUZITO LEDBETTER MD Ot Z79.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 12/19/2015 CRUZITO LEDBETTER MD Ot C91.10 CHRONIC LYMPHOCYTIC LEUK OF B-CELL TYPE 12/19/2015 CRUZITO LEDBETTER MD Ot F32.9 MAJOR DEPRESSIVE DISORDER, SINGLE EPISOD 12/19/2015 CRUZITO LEDBETTER MD Ot I48.91 UNSPECIFIED ATRIAL FIBRILLATION 12/19/2015 CRUZITO LEDBETTER MD Ot J44.9 CHRONIC OBSTRUCTIVE PULMONARY DISEASE, U 12/19/2015 CRUZITO LEDBETTER MD Ot Z79.899 OTHER SKILLED NURSING (CURRENT) DRUG THERAPY 12/20/2015 CRUZITO LEDBETTER MD, Ot C91.10 CHRONIC LYMPHOCYTIC LEUK OF B-CELL TYPE 12/20/2015 CRUZITO LEDBETTER MD Ot F32.9 MAJOR DEPRESSIVE DISORDER, SINGLE EPISOD 12/20/2015 CRUZITO LEDBETTER MD Ot I48.91 UNSPECIFIED ATRIAL FIBRILLATION 12/20/2015 CRUZITO LEDBETTER MD, Ot J44.9 CHRONIC OBSTRUCTIVE PULMONARY DISEASE, U 12/20/2015 CRUZITO LEDBETTER MD, Ot Z79.899 OTHER SKILLED NURSING (CURRENT) DRUG THERAPY 03/06/2016 CRUZITO LEDBETTER MD Ot 204.10 CHRONIC LYMPHOID LEUKEMIA, W/O MENTION A 03/06/2016 CRUZITO LEDBETTER MD Ot 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 03/06/2016 PADMA ACEVEDO DATA PROCESSING AUDITOR Ot 204.10 CHRONIC LYMPHOID LEUKEMIA, W/O MENTION A 03/06/2016 PADMA ACEVEDO DATA PROCESSING AUDITOR Ot 311 DEPRESSIVE DISORDER NEC 03/06/2016 PADMA ACEVEDO DATA PROCESSING AUDITOR Ot 427.31 ATRIAL FIBRILLATION 03/06/2016 PADMA ACEVEDO DATA PROCESSING AUDITOR Ot 496 CHR AIRWAY OBSTRUCT NEC 03/06/2016 PADMA ACEVEDO DATA PROCESSING AUDITOR Ot V12.61 PERSONAL HISTORY, PNEUMONIA (RECURRENT) 03/06/2016 CRUZITO LEDBETTER MD Ot R94.5 ABNORMAL RESULTS OF LIVER FUNCTION STUDI 03/06/2016 CRUZITO LEDBETTER MD Ot C91.10 CHRONIC LYMPHOCYTIC LEUK OF B-CELL TYPE 03/06/2016 CRUZITO LEDBETTER MD, Ot F32.9 MAJOR DEPRESSIVE DISORDER, SINGLE EPISOD 03/06/2016 CRUZITO LEDBETTER MD Ot I48.91 UNSPECIFIED ATRIAL FIBRILLATION 03/06/2016 CRUZITO LEDBETTER MD Ot J44.9 CHRONIC OBSTRUCTIVE PULMONARY DISEASE, U 03/06/2016 CRUZITO LEDBETTER MD Ot Z79.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 03/30/2016 CRUZITO LEDBETTER MD Ot C91.10 CHRONIC LYMPHOCYTIC LEUK OF B-CELL TYPE 03/30/2016 CRUZITO LEDBETTER MD Ot F32.9 MAJOR DEPRESSIVE DISORDER, SINGLE EPISOD 03/30/2016 CRUZITO LEDBETTER MD Ot I48.91 UNSPECIFIED ATRIAL FIBRILLATION 03/30/2016 CRUZITO LEDBETTER MD Ot J44.9 CHRONIC OBSTRUCTIVE PULMONARY DISEASE, U 03/30/2016 CRUZITO LEDBETTER MD Ot Z79.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 05/03/2016 CRUZITO LEDBETTER MD Ot C91.10 CHRONIC LYMPHOCYTIC LEUK OF B-CELL TYPE 05/03/2016 CRUZITO LEDBETTER MD Ot F32.9 MAJOR DEPRESSIVE DISORDER, SINGLE EPISOD 05/03/2016 CRUZITO LEDBETTER MD Ot I48.91 UNSPECIFIED ATRIAL FIBRILLATION 05/03/2016 CRUZITO LEDBETTER MD Ot J44.9 CHRONIC OBSTRUCTIVE PULMONARY DISEASE, U 05/03/2016 CRUZITO LEDBETTER MD Ot Z79.899 OTHER SKILLED NURSING (CURRENT) DRUG THERAPY 06/01/2016 CRUZITO LEDBETTER MD Ot C91.10 CHRONIC LYMPHOCYTIC LEUK OF B-CELL TYPE 06/01/2016 CRUZITO LEDBETTER MD Ot F32.9 MAJOR DEPRESSIVE DISORDER, SINGLE EPISOD 06/01/2016 CRUZITO LEDBETTER MD Ot I48.91 UNSPECIFIED ATRIAL FIBRILLATION 06/01/2016 CRUZITO LEDBETTER MD, Ot J44.9 CHRONIC OBSTRUCTIVE PULMONARY DISEASE, U 06/01/2016 CRUZITO LEDBETTER MD Ot Z79.899 OTHER SKILLED NURSING (CURRENT) DRUG THERAPY 06/27/2016 CRUZITO LEDBETTER MD Ot C91.10 CHRONIC LYMPHOCYTIC LEUK OF B-CELL TYPE 06/27/2016 CRUZITO LEDBETTER MD Ot F32.9 MAJOR DEPRESSIVE DISORDER, SINGLE EPISOD 06/27/2016 CRUZITO LEDBETTER MD Ot I48.91 UNSPECIFIED ATRIAL FIBRILLATION 06/27/2016 CRUZITO LEDBETTER MD Ot J44.9 CHRONIC OBSTRUCTIVE PULMONARY DISEASE, U 06/27/2016 CRUZITO LEDBETTER MD Ot Z79.899 OTHER SKILLED NURSING (CURRENT) DRUG THERAPY 07/27/2016 CRUZITO LEDBETTER MD Ot 204.10 CHRONIC LYMPHOID LEUKEMIA, W/O MENTION A 07/27/2016 CRUZITO LEDBETTER MD Ot 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 07/27/2016 PADMA ACEVEDO Ot 204.10 CHRONIC LYMPHOID LEUKEMIA, W/O MENTION A 07/27/2016 PADMA ACEVEDO DATA PROCESSING AUDITOR Ot 311 DEPRESSIVE DISORDER NEC 07/27/2016 PADMA ACEVEDOP Ot 427.31 ATRIAL FIBRILLATION 07/27/2016 PADMA ACEVEDOP Ot 496 CHR AIRWAY OBSTRUCT NEC 07/27/2016 PADMA ACEVEDOP Ot V12.61 PERSONAL HISTORY, PNEUMONIA (RECURRENT) 07/27/2016 ANATOLY CAPUTO, CRUZITO Joyner Ot R94.5 ABNORMAL RESULTS OF LIVER FUNCTION STUDI 07/30/2016 JASMINA SHARMA MD Ot C91.10 CHRONIC LYMPHOCYTIC LEUK OF B-CELL TYPE 07/30/2016 JASMINA SHARMA MD Ot D80.1 NONFAMILIAL HYPOGAMMAGLOBULINEMIA 07/30/2016 JASMINA SHARMA MD Ot I48.0 PAROXYSMAL ATRIAL FIBRILLATION 07/30/2016 JASMINA SHARMA MD, Ot J44.9 CHRONIC OBSTRUCTIVE PULMONARY DISEASE, U 08/20/2016 JASMINA SHARMA MD Ot C91.10 CHRONIC LYMPHOCYTIC LEUK OF B-CELL TYPE 08/20/2016 JASMINA SHARMA MD Ot D80.1 NONFAMILIAL HYPOGAMMAGLOBULINEMIA 08/20/2016 JASMINA SHARMA MD Ot I48.0 PAROXYSMAL ATRIAL FIBRILLATION 08/20/2016 JASMINA SHARMA MD, Ot J44.9 CHRONIC OBSTRUCTIVE PULMONARY DISEASE, U 10/17/2016 CRUZITO LEDBETTER MD Ot C91.10 CHRONIC LYMPHOCYTIC LEUK OF B-CELL TYPE 10/17/2016 CRUZITO LEDBETTER MD Ot F32.9 MAJOR DEPRESSIVE DISORDER, SINGLE EPISOD 10/17/2016 CRUZITO LEDBETTER MD Ot I48.91 UNSPECIFIED ATRIAL FIBRILLATION 10/17/2016 CRUZITO LEDBETTER MD, Ot J44.9 CHRONIC OBSTRUCTIVE PULMONARY DISEASE, U 10/17/2016 CRUZITO LEDBETTER MD Ot Z79.899 OTHER SKILLED NURSING (CURRENT) DRUG THERAPY 10/26/2016 JASMINA SHARMA MD Ot I48.91 UNSPECIFIED ATRIAL FIBRILLATION 10/27/2016 JASMINA SHARMA MD Ot I48.91 UNSPECIFIED ATRIAL FIBRILLATION 10/27/2016 JASMINA SHARMA MD Ot C91.10 CHRONIC LYMPHOCYTIC LEUK OF B-CELL TYPE 10/27/2016 JASMINA SHARMA MD Ot F32.9 MAJOR DEPRESSIVE DISORDER, SINGLE EPISOD 10/27/2016 JASMINA SHARMA MD Ot F41.9 ANXIETY DISORDER, UNSPECIFIED 10/27/2016 JASMINA SHARMA MD Ot I42.8 OTHER CARDIOMYOPATHIES 10/27/2016 JASMINA SHARMA MD Ot I45.81 LONG QT SYNDROME 10/27/2016 JASMINA SHARMA MD Ot I48.0 PAROXYSMAL ATRIAL FIBRILLATION 10/27/2016 JASMINA SHARMA MD Ot I48.92 UNSPECIFIED ATRIAL FLUTTER 10/27/2016 JASMINA SHARMA MD Ot I50.21 ACUTE SYSTOLIC (CONGESTIVE) HEART FAILUR 10/27/2016 JASMINA SHARMA MD Ot R73.03 PREDIABETES 10/27/2016 JASMINA SHARMA MD Ot Z79.899 OTHER SKILLED NURSING (CURRENT) DRUG THERAPY 11/05/2016 CRUZITO LEDBETTER MD Ot C91.10 CHRONIC LYMPHOCYTIC LEUK OF B-CELL TYPE 11/05/2016 CRUZITO LEDBETTER MD Ot F32.9 MAJOR DEPRESSIVE DISORDER, SINGLE EPISOD 11/05/2016 CRUZITO LEDBETTER MD Ot I48.91 UNSPECIFIED ATRIAL FIBRILLATION 11/05/2016 CRUZITO LEDBETTER MD, Ot J44.9 CHRONIC OBSTRUCTIVE PULMONARY DISEASE, U 11/05/2016 CRUZITO LEDBETTER MD Ot Z79.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 11/06/2016 SVEN MAE Ot G47.33 OBSTRUCTIVE SLEEP APNEA (ADULT) (PEDIATR 11/20/2016 SVEN MAE Ot G47.33 OBSTRUCTIVE SLEEP APNEA (ADULT) (PEDIATR 11/27/2016 CRUZITO LEDBETTER MD Ot C91.10 CHRONIC LYMPHOCYTIC LEUK OF B-CELL TYPE 11/27/2016 CRUZITO LEDBETTER MD, Ot F32.9 MAJOR DEPRESSIVE DISORDER, SINGLE EPISOD 11/27/2016 CRUZITO LEDBETTER MD Ot I48.91 UNSPECIFIED ATRIAL FIBRILLATION 11/27/2016 CRUZITO LEDBETTER MD, Ot J44.9 CHRONIC OBSTRUCTIVE PULMONARY DISEASE, U 11/27/2016 CRUZITO LEDBETTER MD, Ot Z79.899 OTHER SKILLED NURSING (CURRENT) DRUG THERAPY 11/30/2016 SVEN MAE Ot C91.10 CHRONIC LYMPHOCYTIC LEUK OF B-CELL TYPE 11/30/2016 SVEN MAE Ot I48.0 PAROXYSMAL ATRIAL FIBRILLATION 11/30/2016 SVEN MAE Ot R00.2 PALPITATIONS 11/30/2016 SVEN MAE Ot R07.89 OTHER CHEST PAIN 12/08/2016 CRUZITO LEDBETTER MD Ot C91.10 CHRONIC LYMPHOCYTIC LEUK OF B-CELL TYPE 12/08/2016 CRUZITO LEDBETTER MD Ot F32.9 MAJOR DEPRESSIVE DISORDER, SINGLE EPISOD 12/08/2016 CRUZITO LEDBETTER MD Ot I48.91 UNSPECIFIED ATRIAL FIBRILLATION 12/08/2016 CRUZITO LEDBETTER MD Ot J44.9 CHRONIC OBSTRUCTIVE PULMONARY DISEASE, U 12/08/2016 CRUZITO LEDBETTER MD Ot Z79.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 12/11/2016 CRUZITO LEDBETTER MD Ot C91.10 CHRONIC LYMPHOCYTIC LEUK OF B-CELL TYPE 12/11/2016 CRUZITO LEDBETTER MD Ot F32.9 MAJOR DEPRESSIVE DISORDER, SINGLE EPISOD 12/11/2016 CRUZITO LEDBETTER MD Ot I48.91 UNSPECIFIED ATRIAL FIBRILLATION 12/11/2016 CRUZITO LEDBETTER MD Ot J44.9 CHRONIC OBSTRUCTIVE PULMONARY DISEASE, U 12/11/2016 CRUZITO LEDBETTER MD Ot Z79.899 OTHER SKILLED NURSING (CURRENT) DRUG THERAPY 12/13/2016 SVEN MAE Ot C91.10 CHRONIC LYMPHOCYTIC LEUK OF B-CELL TYPE 12/13/2016 SVEN MAE Ot I48.0 PAROXYSMAL ATRIAL FIBRILLATION 12/13/2016 SVEN MAE K Ot R00.2 PALPITATIONS 12/13/2016 SVEN MAE K Ot R07.89 OTHER CHEST PAIN 05/03/2017 CULLEN CAMACHO MD Ot C91.10 CHRONIC LYMPHOCYTIC LEUK OF B-CELL TYPE 05/03/2017 CULLEN CAMACHO MD Ot F32.9 MAJOR DEPRESSIVE DISORDER, SINGLE EPISOD 05/03/2017 CULLEN CAMACHO MD Ot I48.1 PERSISTENT ATRIAL FIBRILLATION 05/03/2017 CULLEN CAMACHO MD Ot J44.9 CHRONIC OBSTRUCTIVE PULMONARY DISEASE, U 05/03/2017 CULLEN CAMACHO MD Ot Z79.899 OTHER SKILLED NURSING (CURRENT) DRUG THERAPY 05/16/2017 CULLEN CAMACHO MD Ot C91.10 CHRONIC LYMPHOCYTIC LEUK OF B-CELL TYPE 05/16/2017 CULLEN CAMACHO MD Ot F32.9 MAJOR DEPRESSIVE DISORDER, SINGLE EPISOD 05/16/2017 CULLEN CAMACHO MD Ot I48.1 PERSISTENT ATRIAL FIBRILLATION 05/16/2017 CULLEN CAMACHO MD Ot J44.9 CHRONIC OBSTRUCTIVE PULMONARY DISEASE, U 05/16/2017 CULLEN CAMACHO MD Ot Z79.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 Procedures There is no data. Results Test Result Range Automated blood complete blood count (hemogram) panel - 10/25/16 11:35 Blood leukocytes automated count (number/volume) 9.0 10*3/uL 4.3-11.0 Blood erythrocytes automated count (number/volume) 4.35 10*6/uL 4.35-5.85 Venous blood hemoglobin measurement (mass/volume) 13.6 g/dL 13.3-17.7 Blood hematocrit (volume fraction) 41 % 40-54 Automated erythrocyte mean corpuscular volume 94 [foz_us] 80-99 Automated erythrocyte mean corpuscular hemoglobin (mass per erythrocyte) 31 pg 25-34 Automated erythrocyte mean corpuscular hemoglobin concentration measurement ( mass/volume) 33 g/dL 32-36 Automated erythrocyte distribution width ratio 13.2 % 10.0-14.5 Automated blood platelet count (count/volume) 187 10*3/uL 130-400 Automated blood platelet mean volume measurement 10.6 [foz_us] 7.4-10.4 Comprehensive metabolic panel - 10/25/16 11:35 Serum or plasma sodium measurement (moles/volume) 139 mmol/L 135-145 Serum or plasma potassium measurement (moles/volume) 4.8 mmol/L 3.6-5.0 Serum or plasma chloride measurement (moles/volume) 110 mmol/L 98-107 Carbon dioxide 21 mmol/L 21-32 Serum or plasma anion gap determination (moles/volume) 8 mmol/L 5-14 Serum or plasma urea nitrogen measurement (mass/volume) 12 mg/dL 7-18 Serum or plasma creatinine measurement (mass/volume) 0.77 mg/dL 0.60-1.30 Serum or plasma urea nitrogen/creatinine mass ratio 16 NRG Serum or plasma creatinine measurement with calculation of estimated glomerular filtration rate > NRG Serum or plasma glucose measurement (mass/volume) 119 mg/dL 70-105 Serum or plasma calcium measurement (mass/volume) 9.0 mg/dL 8.5-10.1 Serum or plasma total bilirubin measurement (mass/volume) 1.3 mg/dL 0.1-1.0 Serum or plasma alkaline phosphatase measurement (enzymatic activity/volume) 48 U/L 40-136 Serum or plasma aspartate aminotransferase measurement (enzymatic activity/ volume) 30 U/L 5-34 Serum or plasma alanine aminotransferase measurement (enzymatic activity/volume ) 27 U/L 0-55 Serum or plasma protein measurement (mass/volume) 6.7 g/dL 6.4-8.2 Serum or plasma albumin measurement (mass/volume) 4.1 g/dL 3.2-4.5 Magnesium - 10/25/16 11:35 Magnesium 2.4 mg/dL 1.8-2.4 Serum or plasma lithium measurement (moles/volume) - 10/25/16 11:35 BNP level 178.8 pg/mL <100.0 Serum or plasma troponin i.cardiac measurement (mass/volume) - 10/25/16 11:35 Serum or plasma troponin i.cardiac measurement (mass/volume) < ng/ mL <0.30 THYROID STIMULATING HORMONE - 10/25/16 11:35 THYROID STIMULATING HORMONE 0.91 u[iU]/mL 0.35-4.94 Methicillin resistant Staphylococcus aureus (MRSA) screening culture - 11:50 Methicillin resistant Staphylococcus aureus (MRSA) screening culture NEG NRG Complete blood count (CBC) with automated white blood cell (WBC) differential - 10/26/16 03:59 Blood leukocytes automated count (number/volume) 8.7 10*3/uL 4.3-11.0 Blood erythrocytes automated count (number/volume) 4.19 10*6/uL 4.35-5.85 Venous blood hemoglobin measurement (mass/volume) 13.1 g/dL 13.3-17.7 Blood hematocrit (volume fraction) 40 % 40-54 Automated erythrocyte mean corpuscular volume 95 [foz_us] 80-99 Automated erythrocyte mean corpuscular hemoglobin (mass per erythrocyte) 31 pg 25-34 Automated erythrocyte mean corpuscular hemoglobin concentration measurement ( mass/volume) 33 g/dL 32-36 Automated erythrocyte distribution width ratio 13.3 % 10.0-14.5 Automated blood platelet count (count/volume) 181 10*3/uL 130-400 Automated blood platelet mean volume measurement 10.7 [foz_us] 7.4-10.4 Automated blood neutrophils/100 leukocytes 33 % 42-75 Automated blood lymphocytes/100 leukocytes 53 % 12-44 Blood monocytes/100 leukocytes 6 % 0-12 Automated blood eosinophils/100 leukocytes 8 % 0-10 Automated blood basophils/100 leukocytes 0 % 0-10 Blood neutrophils automated count (number/volume) 2.9 10*3 1.8-7.8 Blood lymphocytes automated count (number/volume) 4.7 10*3 1.0-4.0 Blood monocytes automated count (number/volume) 0.5 10*3 0.0-1.0 Automated eosinophil count 0.7 10*3/uL 0.0-0.3 Automated blood basophil count (count/volume) 0.0 10*3/uL 0.0-0.1 Whole blood basic metabolic panel - 10/26/16 03:59 Serum or plasma sodium measurement (moles/volume) 141 mmol/L 135-145 Serum or plasma potassium measurement (moles/volume) 3.7 mmol/L 3.6-5.0 Serum or plasma chloride measurement (moles/volume) 108 mmol/L 98-107 Carbon dioxide 21 mmol/L 21-32 Serum or plasma anion gap determination (moles/volume) 12 mmol/L 5-14 Serum or plasma urea nitrogen measurement (mass/volume) 13 mg/dL 7-18 Serum or plasma creatinine measurement (mass/volume) 0.78 mg/dL 0.60-1.30 Serum or plasma urea nitrogen/creatinine mass ratio 17 NRG Serum or plasma creatinine measurement with calculation of estimated glomerular filtration rate > NRG Serum or plasma glucose measurement (mass/volume) 117 mg/dL 70-105 Serum or plasma calcium measurement (mass/volume) 9.2 mg/dL 8.5-10.1 Serum or plasma phosphate measurement (mass/volume) - 10/26/16 03:59 Serum or plasma phosphate measurement (mass/volume) 3.5 mg/dL 2.3-4.7 Magnesium - 10/26/16 03:59 Magnesium 2.1 mg/dL 1.8-2.4 Complete blood count (CBC) with automated white blood cell (WBC) differential - 10/27/16 04:06 Blood leukocytes automated count (number/volume) 7.6 10*3/uL 4.3-11.0 Blood erythrocytes automated count (number/volume) 4.00 10*6/uL 4.35-5.85 Venous blood hemoglobin measurement (mass/volume) 12.6 g/dL 13.3-17.7 Blood hematocrit (volume fraction) 38 % 40-54 Automated erythrocyte mean corpuscular volume 95 [foz_us] 80-99 Automated erythrocyte mean corpuscular hemoglobin (mass per erythrocyte) 32 pg 25-34 Automated erythrocyte mean corpuscular hemoglobin concentration measurement ( mass/volume) 33 g/dL 32-36 Automated erythrocyte distribution width ratio 13.0 % 10.0-14.5 Automated blood platelet count (count/volume) 162 10*3/uL 130-400 Automated blood platelet mean volume measurement 10.6 [foz_us] 7.4-10.4 Automated blood neutrophils/100 leukocytes 36 % 42-75 Automated blood lymphocytes/100 leukocytes 52 % 12-44 Blood monocytes/100 leukocytes 5 % 0-12 Automated blood eosinophils/100 leukocytes 7 % 0-10 Automated blood basophils/100 leukocytes 0 % 0-10 Blood neutrophils automated count (number/volume) 2.7 10*3 1.8-7.8 Blood lymphocytes automated count (number/volume) 4.0 10*3 1.0-4.0 Blood monocytes automated count (number/volume) 0.4 10*3 0.0-1.0 Automated eosinophil count 0.5 10*3/uL 0.0-0.3 Automated blood basophil count (count/volume) 0.0 10*3/uL 0.0-0.1 Whole blood basic metabolic panel - 10/27/16 04:06 Serum or plasma sodium measurement (moles/volume) 141 mmol/L 135-145 Serum or plasma potassium measurement (moles/volume) 3.9 mmol/L 3.6-5.0 Serum or plasma chloride measurement (moles/volume) 109 mmol/L 98-107 Carbon dioxide 25 mmol/L 21-32 Serum or plasma anion gap determination (moles/volume) 7 mmol/L 5-14 Serum or plasma urea nitrogen measurement (mass/volume) 13 mg/dL 7-18 Serum or plasma creatinine measurement (mass/volume) 0.78 mg/dL 0.60-1.30 Serum or plasma urea nitrogen/creatinine mass ratio 17 NRG Serum or plasma creatinine measurement with calculation of estimated glomerular filtration rate > NRG Serum or plasma glucose measurement (mass/volume) 100 mg/dL 70-105 Serum or plasma calcium measurement (mass/volume) 8.9 mg/dL 8.5-10.1 Serum or plasma phosphate measurement (mass/volume) - 10/27/16 04:06 Serum or plasma phosphate measurement (mass/volume) 3.9 mg/dL 2.3-4.7 Magnesium - 10/27/16 04:06 Magnesium 2.2 mg/dL 1.8-2.4 Encounters ACCT No. Visit Date/Time Discharge Status Pt. Type Provider Facility Loc./Unit Complaint [id number] 04/02/2017 08:21:00 04/02/2017 23:59:59 CLS Outpatient CULLEN CAMACHO MD [facility] ONC [id number] 09/27/2016 09:48:00 12/08/2016 00:01:00 DIS Outpatient CRUZITO LEDBETTER MD [facility] ONC [id number] 11/09/2016 06:45:00 11/09/2016 23:59:59 CLS Outpatient SVEN MAE [facility] CARD AFIB I48.0, CHEST PAIN R07.89 [id number] 11/05/2016 14:46:00 11/05/2016 23:59:59 CLS Preadmit SVEN MAE [facility] SLEEP THANH [id number] 10/25/2016 11:00:00 10/27/2016 14:25:00 DIS Inpatient JASMINA SHARMA MD [facility] ICU AFIB WITH RVR [id number] 07/30/2016 12:45:00 07/30/2016 23:59:59 CLS Preadmit JASMINA SHARMA MD [facility] CARD I48.91,D80.1 [id number] 07/27/2016 11:00:00 07/27/2016 23:59:59 CLS Outpatient JASMINA SHARMA MD [facility] CARD I48.91,D80.1 [id number] 03/29/2016 08:42:00 06/27/2016 00:01:00 DIS Outpatient CRUZITO LEDBETTER MD [facility] ONC [id number] 09/20/2015 08:40:00 12/19/2015 00:01:00 DIS Outpatient CRUZITO LEDBETTER MD [facility] ONC [id number] 05/16/2015 13:18:00 08/14/2015 00:01:00 DIS Outpatient CRUZITO LEDBETTER MD [facility] ONC [id number] 04/18/2015 12:35:00 04/24/2015 00:01:00 DIS Outpatient CRUZITO LEDBETTER MD [facility] ONC [id number] 04/18/2015 12:59:00 04/18/2015 23:59:59 CLS Outpatient CRUZITO LEDBETTER MD [facility] RAD ABNORMAL LFT [id number] 10/27/2014 15:04:00 12/08/2014 00:01:00 DIS Outpatient CRUZITO LEDBETTER MD [facility] ONC [id number] 07/21/2014 14:58:00 10/19/2014 00:01:00 DIS Outpatient CRUZITO LEDBETTER MD [facility] ONC [id number] 03/02/2014 15:07:00 03/02/2014 23:59:59 CLS Outpatient CRUZITO LEDBETTER MD [facility] ONC [id number] 02/18/2014 14:59:00 02/22/2014 00:01:00 DIS Outpatient CRUZITO LEDBETTER MD [facility] ONC [id number] 10/28/2013 14:54:00 11/18/2013 00:01:00 DIS Outpatient CRUZITO LEDBETTER MD [facility] ONC [id number] 08/26/2013 14:37:00 08/26/2013 23:59:59 CLS Outpatient CRUZITO LEDBETTER MD [facility] RAD HX CLL [id number] 08/25/2013 09:19:00 08/25/2013 23:59:59 CLS Outpatient PADMA ACEVEDO [facility] ONC [id number] 05/27/2017 09:30:00 PEN JASMINA Gregory MD [facility] CATH AFIB
[2017-05-27 07:45] LABS: HEMOGLOBIN 14.5 G/DL (13.3-17.7); MEAN PLATELET VOLUME 10.5 FL (7.4-10.4); RED BLOOD COUNT 4.54 10^6/uL (4.35-5.85); WHITE BLOOD COUNT 11.8 10^3/uL (4.3-11.0)
[2017-05-27] MEDS ORDERED: MULT-35 PO (07:49)
[2017-05-27] MEDS ORDERED: DILT90TA PO (07:52)
[2017-05-27] MEDS ORDERED: CALC-696 PO (07:52)
[2017-05-27] MEDS ORDERED: VITA-189 PO (07:52)
[2017-05-27 07:56] LABS: INR 1.1 (0.8-1.4); PROTHROMBIN TIME PATIENT 13.9 SEC (12.2-14.7)
--- NOTE | 2017-05-27 07:57 | Cardiac Procedure Note-CS/ASA ---
Pre-Procedure Note Pre-Op Procedure Note H&P Reviewed The H&P was reviewed, patient examined and no changes noted. Date H&P Reviewed: May 27, 2017 Time H&P Reviewed: 07:57 Conscious Sedation Pre-Proced Time Reviewed: 07:57 ASA Class: 3 Airway Mallampati Classification: ([place] appropriate class) I. II. III, IV Lungs Heart ASA score ASA 1: a normal healthy patient ASA 2: a patient with a mild systemic disease (mid diabetes, controlled hypertension, obesity x ASA 3: a patient with a severe systemic disease that limits activity (angina , COPD, prior Myocardial infarction) ASA 4: a patient with an incapacitating disease that is a constant threat to life (CHF, renal failure) ASA 5: a moribund patient not expected to survive 24 hrs. (ruptured aneurysm) ASA 6: a declared brain patient whose organs are being harvested. For emergent operations, add the letter E after the classification Grade 3 Sedation Plan: Analgesia, Amnesia, Plan communicated to team members, Discussed options with patient/fam, Discussed risks with patient/fam Note The patient is an appropriate candidate to undergo the planned procedure, sedation, and anesthesia. The patient immediately re-assessed prior to indication. JASMINA SHARMA MD May 27, 2017 07:57
[2017-05-27] MEDS ORDERED: proPOfol 200 MG/20 ML (DIPRIVAN) VIAL IV ONE ×2 (07:58→08:06)
[2017-05-27] MEDS ORDERED: MIDAZOLAM 2 MG/2 ML (VERSED) VIAL ONE ×2 (07:58→08:07)
[2017-05-27] MEDS: NS IV 1000 ML 1,000 ML IV SCH ×2 (08:00→14:49)
[2017-05-27 08:03] LABS: ALANINE AMINOTRANSFERASE 20 U/L (0-55); ALBUMIN 4.2 GM/DL (3.2-4.5); ALKALINE PHOSPHATASE 48 U/L (40-136); BILIRUBIN,TOTAL 0.9 MG/DL (0.1-1.0); BUN/CREATININE RATIO 19; CARBON DIOXIDE 24 MMOL/L (21-32); CHLORIDE 108 MMOL/L (98-107); CHOLESTEROL 184 MG/DL (< 200); CREATININE SERUM 0.89 MG/DL (0.60-1.30); GFR ESTIMATED > 60; GLUCOSE 161 MG/DL (70-105); HDL CHOLESTEROL 35 MG/DL (40-60); POTASSIUM 4.2 MMOL/L (3.6-5.0); SODIUM 139 MMOL/L (135-145); TOTAL PROTEIN 6.8 GM/DL (6.4-8.2); TRIGLYCERIDES 151 MG/DL (<150); VLDL CHOLESTEROL 30 MG/DL (5-40)
--- NOTE | 2017-05-27 08:18 | Diagnostic Imaging Report ---
INDICATION: Atrial fibrillation. Heart catheter. COMPARISON: 10/27/2016. FINDINGS: Portable chest shows the lungs to be well-aerated and clear. Heart is not enlarged. There is no pulmonary edema. No pneumothorax or pleural effusion. IMPRESSION: Normal portable chest. Dictated by: Dictated on workstation # [id number]
[2017-05-27] MEDS ORDERED: LIDOCAINE 2% VISCOUS 15 ML UDC PO ONE (08:45)
[2017-05-27] MEDS ORDERED: AMIODARONE INJECTION 450 MG in D5W IV SOLUTION (EXCEL) 250 ML IV ONE (08:45)
--- NOTE | 2017-05-27 08:57 | Anesthesia-Procedure Note ---
Procedures/Interventions Procedure Start/Stop/Diagnosis Date of Procedure: May 27, 2017 Start Time: 08:27 Referring Physician: Alexandra Preprocedural Diagnosis: AFIB Stop Time: 08:39 ANIKET/Cardioversion Anesthesia Type: mac ASA Class: 2 Medications Called to Repair Cameraman for ANIKET/Cardioversion. Report received from lab clerk, RN. Explained sedation to patient, wishes to proceed. Monitors on and functional. Versed 2MG, and Propofol 70mg IV given for procedure. ROSIE FOX CRNA May 27, 2017 08:57
--- NOTE | 2017-05-27 08:59 | Anesthesia-General Post-Op ---
MAC Patient Condition Mental Status/LOC: Same as Preop Cardiovascular: Satisfactory Nausea/Vomiting: Absent Respiratory: Satisfactory Pain: Controlled Complications: Absent Post Op Complications Complications None Follow Up Care/Instructions Patient Instructions None needed. Anesthesiology Discharge Order Discharge Order Patient is doing well, no complaints, stable vital signs, no apparent adverse anesthesia problems. No complications reported per nursing. ROSIE HOLLINGSWORTH CRNA May 27, 2017 08:59
--- NOTE | 2017-05-27 09:31 | Cardiology History & Physical ---
HPI-Cardiology Cardiology Consultation Date of Consultation 05/27/17 Date of Admission Time Seen by Provider: 08:00 Indication: Atrial fibrillation HPI Patient is a 67 y/o male with history of HTN, PAF, CLL. Was seen in the office last week with complaints of increased fatigue and dyspnea. Was found to be in atrial fibrillation. Presented today for ANIKET with cardioversion as outpatient. Reports he has had increase in fatigue over the past several months. Denies any CP, palpitations or syncope. Underwent ANIKET with cardioversion this morning, however, was unable to maintain SR. ANIKET revealed EF 30%, deterioration compared to previous echo. Patient is admitted to ICU on Cardizem gtt, planning for cardioversion again in the morning. 67 years old gentleman admitted for elective ANIKET and cardioversion, underwent the procedure without complication, patient was unable to maintain sinus rhythm , he failed sotalol in the past. His left ventricular function appeared to be deteriorated due to the atrial fibrillation and tachycardia subsequently I decided to admit him and start him on amiodarone and attempt for cardioversion again. PMH-Cardiology Immunizations Up To Date Date of Pneumonia Vaccine: Oct 26, 2015 Date of Influenza Vaccine: Dec 19, 2016 Seasonal Allergies Seasonal Allergies: Yes Surgeries Yes Respiratory Yes Cardiovascular Yes Atrial Fibrillation Neurological Yes Genitourinary Yes Bladder Infection, Kidney Stones Gastrointestinal Yes Gastroesophageal Reflux, Polyps Musculoskeletal No Endocrine Yes HEENT Yes (left eye blurred vision) Loss of Vision: Left Hearing Impairment: Denies Cancer No (CLL) Leukemia Did You Recieve Any Treatments: Yes Type of Treatment: Chemotherapy Psychosocial Yes Sleep Difficulties, Anxiety, Depression Integumentary No Blood Transfusions No Adverse Rxn to Transfusion: No Other PMHx past medical history as discussed below Social History Patient Social History Marrital Status: Alcohol Use: Denies Use Recreational Drug Use: No Recent Foreign Travel: No Contact w/other who traveled: No Family Hx Significant Family History: Heart Disease, Diabetes Family History: Cardiovascular disease 19 FATHER Diabetes mellitus 19 FATHER G8 SISTER G8 SISTER G8 SISTER FH: CHF (congestive heart failure) G8 SISTER FH: atrial fibrillation 19 FATHER Fatty liver G8 BROTHER TIAs 19 MOTHER ROS-Cardiology Review of Systems General: No Night Sweats, Fatigue, Malaise HEENT: No Visual Changes, No Dysphasia, No Sore Throat Pulmonary: Dyspnea, No Cough, No Pleuritic Chest Pain Cardiovascular: No: Chest Pain, Palpitations, Paroxysmal Noc. Dyspnea, Edema Gastrointestinal: No: Nausea, Vomiting, Abdominal Pain Genitourinary: No Dysuria, No Frequency Musculoskeletal: No: neck pain, back pain Neurological: Weakness, No: Numbness, Change in speech, Confusion Home Medications & Allergies Allergies: Coded Allergies: No Known Drug Allergies (Unverified , 08/21/13) Home Medication List Reviewed: Yes Exam-Cardiology Vital Signs Vital Signs Date Time Temp Pulse Resp B/P (MAP) Pulse Ox O2 Delivery O2 Flow Rate FiO2 05/27/17 11:30 96 19 122/94 (103) 98 Room Air 05/27/17 09:45 97.4 05/27/17 08:45 5.00 Exam General Appearance: Alert, Oriented X3, Cooperative, No Acute Distress HEENT: Atraumatic, PERRLA Respiratory: Clear to Auscultation, Normal Air Movement Cardiovascular: Other (irregularly irregular, tachycardic) Abdominal: Normal Bowel Sounds, Soft, No Tenderness, No Hepatosplenomegaly, No Masses Extremities: No Clubbing, No Cyanosis, No Edema, Normal Pulses, No Tenderness/ Swelling Skin: No Rashes, No Breakdown, No Significant Lesion Neuro: Normal Gait, Normal Speech, Strength at 5/5 X4 Ext, Normal Tone, Sensation Intact Psych/Mental Status: Mental Status NL, Mood NL Results Labs Labs Laboratory Tests 05/27/17 07:36: White Blood Count 11.8H, Red Blood Count 4.54, Hemoglobin 14.5, Hematocrit 41, Mean Corpuscular Volume 91, Mean Corpuscular Hemoglobin 32, Mean Corpuscular Hemoglobin Concent 35, Red Cell Distribution Width 13.0, Platelet Count 181, Mean Platelet Volume 10.5H, Prothrombin Time 13.9, INR Comment 1.1, Activated Partial Thromboplast Time 29, Sodium Level 139, Potassium Level 4.2, Chloride Level 108H, Carbon Dioxide Level 24, Anion Gap 7, Blood Urea Nitrogen 17, Creatinine 0.89, Estimat Glomerular Filtration Rate > 60, BUN/Creatinine Ratio 19, Glucose Level 161H, Calcium Level 9.0, Total Bilirubin 0.9, Aspartate Amino Transf (AST/SGOT) 19, Alanine Aminotransferase (ALT/SGPT) 20, Alkaline Phosphatase 48, Total Protein 6.8, Albumin 4.2, Triglycerides Level 151H, Cholesterol Level 184, LDL Cholesterol Direct 138H, VLDL Cholesterol 30, HDL Cholesterol 35L A/P-Cardiology Admission Diagnosis Atrial fibrillation Congestive Heart failure CP CLL Admission Status: Observation Assessment/Plan Paroxysmal atrial fibrillation,was seen in the office last week, found to be in afib with RVR. Underwent ANIKET with cardioversion this morning, however, was unable to maintain SR. EF 30% on ANIKET. Patient will be admitted and started on Amiodarone. Has been intolerant to higher dose of sotalol due to prolonged QT interval, Has been intolerant to Cardizem secondary to extreme fatigue, unable to use class IC antiarrhythmic at this time. Planning to possible cardioversion in the morning. Congestive Heart failure, LV systolic dysfunction, nonischemic cardiomyopathy with EF 30%. Possible secondary to Afib with RVR. I will consider starting Entresto. Chest pain, nonspecific etiology-no active chest pain at this time. Stress test on November 09, 2016 revealed no ischemia or infarct. Continue to monitor. Recurrent palpitation, on and off, reporting that he is in atrial fibrillation about 50 percent of the times. I am planning to proceed with reveal implantation for further monitoring. [id number] score of 1, yearly risk of stroke without oral anticoagulation is 1.3 percent. Maintained on Eliquis. Prediabetes, followed and managed by primary care physician, diet controlled History of chronic lymphocytic leukemia, followed and managed by Dr. Kayley Larry History of anxiety, depression, maintained on Lexapro, however was discontinued during hospital stay secondary to QT prolongation. Complaining of increased anger issues and anxiety since discontinuing medication. Lexapro restarted. Snoring, arrhythmia, excessive daytime sleepiness, increased risk for obstructive sleep apnea. Didn't have the sleep study done, consider sleep study as outpatient. This is Kimberli Cristobal PA-C, as a scribe for Dr. Morris. This Dr. Morris, I have seen and evaluated the patient with Kimberli. Patient is being admitted for amiodarone drip and possible cardioversion tomorrow. Underwent electrical cardioversion as described above, I performed a physical examination and interview the patient and performed a cardioversion and ANIKET and discussed with Kimberli admission and the management plan, I agree with the current scribe JASMINA MORRIS MD May 27, 2017 09:31 KIMBERLI TAYLOR May 27, 2017 10:25
[2017-05-27] MEDS: AMIODARONE IV SOLUTION 200 ML IV SCH ×2 (09:32→14:49)
--- NOTE | 2017-05-27 09:49 | Cardioversion ---
Cardioversion PROCEDURE PHYSICIAN: Cate Morris MD DATE OF PROCEDURE: 05/27/17 DIRECT EXTERNAL ELECTRICAL CARDIOVERSION: Indications: Atrial Fibrillation with rapid ventricular rate Preoperative diagnoses: Atrial Fibrillation with rapid ventricular rate Postoperative diagnosis: Sinus rhythm, Successful Electrical Cardioversion History: patient has persistent atrial fibrillation with rapid ventricular response. Worsening LV function Anesthesia: By Anesthesia services Complications: None Specimen: None Contrast: 0 Flouroscopy: none Procedure Details: The patient was brought the lab asst after informed consent was taken, all the risks and complications were explained including the risk of stroke. Electrical cardioversion was carried out with anesthesia support with propofol. 200 joules of synchronized shock was delivered through external patches which promptly restored sinus rhythm, patient went back to atrial fibrillation, second shock was done again with success in terminating atrial fibrillation but patient was unable to maintain sinus rhythm. Conclusions: 1. Failed electrical cardioversion, patient was unable to maintain sinus rhythm , went back to atrial fibrillation 2. Continue oral anticoagulation 3. Patient will be starting on amiodarone bolus and a drip and will evaluate tolerance and response MD ZACHARY Le BASHAR J MD May 27, 2017 9:49 am
[2017-05-27] MEDS: CARVEDILOL 6.25 MG (COREG) TAB PO SCH ×2 (11:07→20:52)
[2017-05-27] MEDS: APIXABAN 5 MG (ELIQUIS) TABLET PO SCH ×2 (11:07→20:52)
[2017-05-27] MEDS: AMIODARONE 200 MG (CORDARONE) TAB PO SCH ×2 (11:07→20:52)
[2017-05-27] MEDS: DILTIAZEM 120 MG (CARDIZEM CD) CAP PO SCH (11:07)
[2017-05-27] MEDS: VERAPAMIL 5 MG/2 ML (CALAN) VIAL IV SCH ×3 (12:37→20:00)
[2017-05-27] MEDS ORDERED: MULT-1029 PO (15:42)
[2017-05-27] MEDS ORDERED: APIX5TAB PO (15:42)
[2017-05-27] MEDS ORDERED: CHOL500050 PO (15:42)
[2017-05-27] MEDS ORDERED: ASPI-808 PO (15:42)
[2017-05-27] MEDS ORDERED: MAGN400C PO (15:42)
[2017-05-27] MEDS ORDERED: SOTA80TA PO (15:44)
[2017-05-28] VITALS (12 sets, daily range): BP systolic 108–150; BP diastolic 65–97
[2017-05-28] MEDS: VERAPAMIL 5 MG/2 ML (CALAN) VIAL IV SCH ×3 (00:01→08:42)
[2017-05-28] MEDS: NS IV 1000 ML 1,000 ML IV SCH (00:51)
[2017-05-28] MEDS: AMIODARONE IV SOLUTION 200 ML IV SCH (02:21)
[2017-05-28] MEDS ORDERED: proPOfol 200 MG/20 ML (DIPRIVAN) VIAL IV ONE (07:19)
[2017-05-28] MEDS ORDERED: MIDAZOLAM 2 MG/2 ML (VERSED) VIAL ONE (07:19)
--- NOTE | 2017-05-28 07:22 | Cardiology Progress Note ---
Subjective Date Seen by Provider: May 28, 2017 Time Seen by Provider: 07:17 Subjective/Events-last exam Patient is in bed. Still in atrial fibrillation, heart rate is better controlled. No chest pain, no palpitation, no shortness of breath Review of Systems General: No Chills, No Night Sweats, No Fatigue, No Malaise, No Appetite, No Other HEENT: No Head Aches, No Visual Changes, No Eye Pain, No Ear Pain, No Dysphasia , No Sinus Congestion, No Post Nasal Drip, No Sore Throat, No Other Pulmonary: No Dyspnea, No Cough, No Pleuritic Chest Pain, No Other Cardiovascular: No: Chest Pain, Palpitations, Orthopnea, Paroxysmal Noc. Dyspnea, Edema, Lt Headedness, Other Objective-Cardiology Exam Last Set of Vital Signs Vital Signs 05/28/17 05/28/17 04:00 06:00 Temp 97.3 Pulse 76 Resp 24 B/P (MAP) 125/97 (106) Pulse Ox 96 O2 Delivery Room Air Capillary Refill : Less Than 3 Seconds I&O Intake and Output 05/28/17 00:00 Intake Total 1700 ml Output Total 450 ml Balance 1250 ml Intake Oral 500 ml IV Total 1200 ml Output Urine Total 450 ml General: Alert, Oriented X3, Cooperative, No Acute Distress HEENT: Atraumatic, PERRLA Lungs: Clear to Auscultation, Normal Air Movement Heart: Normal S1, Normal S2, Other (irregularly irregular) Abdomen: Normal Bowel Sounds, Soft, No Tenderness, No Hepatosplenomegaly, No Masses Extremities: No Clubbing, No Cyanosis, No Edema, Normal Pulses, No Tenderness/ Swelling Skin: No Rashes, No Breakdown, No Significant Lesion Neuro: Normal Gait, Normal Speech, Strength at 5/5 X4 Ext, Normal Tone, Sensation Intact Psych/Mental Status: Mental Status NL, Mood NL Results Lab Laboratory Tests 05/27/17 07:36 A/P-Cardiology Admission Diagnosis Atrial fibrillation Congestive Heart failure CP CLL Assessment/Plan Paroxysmal atrial fibrillation,was seen in the office last week, found to be in afib with RVR. Failed cardioversion yesterday, I started him on loading dose of amiodarone oral and IV drip, planning to do cardioversion again today. Congestive Heart failure, LV systolic dysfunction, nonischemic cardiomyopathy with EF 30%. Possible secondary to Afib with RVR. I will consider starting Entresto. Chest pain, nonspecific etiology-no active chest pain at this time. Stress test on November 09, 2016 revealed no ischemia or infarct. Continue to monitor. Recurrent palpitation, on and off, reporting that he is in atrial fibrillation about 50 percent of the times. I am planning to proceed with reveal implantation for further monitoring. [id number] score of 1, yearly risk of stroke without oral anticoagulation is 1.3 percent. Maintained on Eliquis. Prediabetes, followed and managed by primary care physician, diet controlled History of chronic lymphocytic leukemia, followed and managed by Dr. Kayley Larry History of anxiety, depression, maintained on Lexapro, however was discontinued during hospital stay secondary to QT prolongation. Complaining of increased anger issues and anxiety since discontinuing medication. Lexapro restarted. Snoring, arrhythmia, excessive daytime sleepiness, increased risk for obstructive sleep apnea. Didn't have the sleep study done, consider sleep study as outpatient. JASMINA SHARMA MD May 28, 2017 07:22
--- NOTE | 2017-05-28 07:23 | Cardiac Procedure Note-CS/ASA ---
Pre-Procedure Note Pre-Op Procedure Note H&P Reviewed The H&P was reviewed, patient examined and no changes noted. Date H&P Reviewed: May 28, 2017 Time H&P Reviewed: 07:23 Conscious Sedation Pre-Proced Time Reviewed: 07:23 ASA Class: 3 Airway Mallampati Classification: ([place] appropriate class) I. II. III, IV Lungs Heart ASA score ASA 1: a normal healthy patient ASA 2: a patient with a mild systemic disease (mid diabetes, controlled hypertension, obesity x ASA 3: a patient with a severe systemic disease that limits activity (angina , COPD, prior Myocardial infarction) ASA 4: a patient with an incapacitating disease that is a constant threat to life (CHF, renal failure) ASA 5: a moribund patient not expected to survive 24 hrs. (ruptured aneurysm) ASA 6: a declared brain patient whose organs are being harvested. For emergent operations, add the letter E after the classification Grade 3 Sedation Plan: Analgesia, Amnesia, Plan communicated to team members, Discussed options with patient/fam, Discussed risks with patient/fam Note The patient is an appropriate candidate to undergo the planned procedure, sedation, and anesthesia. The patient immediately re-assessed prior to indication. JASMINA SHARMA MD May 28, 2017 07:23
--- NOTE | 2017-05-28 07:31 | Cardioversion ---
Cardioversion PROCEDURE PHYSICIAN: Jasmina Morris MD DATE OF PROCEDURE: 05/28/17 DIRECT EXTERNAL ELECTRICAL CARDIOVERSION: Indications: Atrial Fibrillation with rapid ventricular rate Preoperative diagnoses: Atrial Fibrillation with rapid ventricular rate Postoperative diagnosis: Sinus rhythm, Successful Electrical Cardioversion History: Anesthesia: By Anesthesia services Complications: None Specimen: None Contrast: 0 Flouroscopy: none Procedure Details: The patient was brought the cathead operator after informed consent was taken, all the risks and complications were explained including the risk of stroke. Electrical cardioversion was carried out with anesthesia support with propofol. 200 joules of synchronized shock was delivered through external patches which promptly restored sinus rhythm. The patient tolerated the procedure well. Conclusions: 1. Successful electrical cardioversion terminating atrial fibrillation JASMINA MORRIS MD May 28, 2017 07:31
--- NOTE | 2017-05-28 07:42 | Anesthesia-Procedure Note ---
Procedures/Interventions Procedure Start/Stop/Diagnosis Date of Procedure: May 28, 2017 Start Time: 07:20 Referring Physician: Alexandra Brief History A-fib Stop Time: 07:30 ANIKET/Cardioversion Anesthesia Type: MAC ASA Class: 3 Medications Versed 2mg Propofol 50mg Monitors and Equipment: Continuous EKG, End Tidal CO2, IV, Pulse Oximeter READING,RACHANA Jimenes CRNA May 28, 2017 07:42
--- NOTE | 2017-05-28 08:07 | Anesthesia-General Post-Op ---
MAC Patient Condition Mental Status/LOC: Same as Preop Cardiovascular: Satisfactory Nausea/Vomiting: Absent Respiratory: Satisfactory Pain: Controlled Complications: Absent Post Op Complications Complications None Follow Up Care/Instructions Patient Instructions None needed. Anesthesiology Discharge Order Discharge Order Patient is doing well, no complaints, stable vital signs, no apparent adverse anesthesia problems. No complications reported per nursing. RACHANA ONOFRE CRNA May 28, 2017 08:07
[2017-05-28] MEDS: CARVEDILOL 6.25 MG (COREG) TAB PO SCH (08:42)
[2017-05-28] MEDS: AMIODARONE 200 MG (CORDARONE) TAB PO SCH (08:42)
[2017-05-28] MEDS: APIXABAN 5 MG (ELIQUIS) TABLET PO SCH (08:42)
[2017-05-28] MEDS: DILTIAZEM 120 MG (CARDIZEM CD) CAP PO SCH (08:42)
[2017-05-28] MEDS ORDERED: CARV6.252 PO (12:48)
[2017-05-28] MEDS ORDERED: AMIO200T2 PO (12:48)
== END 2017-05-28 13:12 | disposition home or self-care (01) ==
LOC: CATH 07:17 → ICU 09:50 → CATH 05-28 13:12
PROVIDERS: ATTEND Internal Medicine Cardiovascular Disease
DX: I48.0 Paroxysmal atrial fibrillation (principal); I11.0 Hypertensive heart disease with heart failure; I50.21 Acute systolic (congestive) heart failure; K21.9 Gastro-esophageal reflux disease without esophagitis; F32.9 Major depressive disorder, single episode, unspecified; F41.9 Anxiety disorder, unspecified; R07.9 Chest pain, unspecified; Z92.3 Personal history of irradiation; I42.9 Cardiomyopathy, unspecified; R73.03 Prediabetes; C91.10 Chronic lymphocytic leukemia of B-cell type not having achieved remission; R06.83 Snoring; G47.10 Hypersomnia, unspecified
CPT/HCPCS: 36415; 71045; 80053; 80061; 85027; 85610; 85730; 87081; 93005; 93312; 93320; 93325

== ENCOUNTER → 2017-10-02 | Outpatient (CLI) | payer MEDICARE, MEDICAID ==
[~2017-10-02] MED LIST changes: +AMIO200T4 PO; +CALC-696 PO; +CARV6.252 PO; +CHOL500050 PO; +DILT90TA PO; +MAGN400C PO; +MULT-1029 PO; +MULT-35 PO; +VITA-189 PO
[2017-10-02 09:00] LABS: BASOPHILS % (AUTO) 0 % (0-10); EOSINOPHILS # (AUTO) 0.7 10^3/uL (0.0-0.3); EOSINOPHILS % (AUTO) 4 % (0-10); HEMATOCRIT 42 % (40-54); HEMOGLOBIN 14.5 G/DL (13.3-17.7); LYMPHOCYTES # (AUTO) 14.7 X 10^3 (1.0-4.0); LYMPHOCYTES % (AUTO) 75 % (12-44); MEAN CORPUSCULAR HEMOGLOBIN 32 PG (25-34); MEAN CORPUSCULAR HGB CONC 34 G/DL (32-36); MEAN CORPUSCULAR VOLUME 94 FL (80-99); MEAN PLATELET VOLUME 10.1 FL (7.4-10.4); MONOCYTES # (AUTO) 0.6 X 10^3 (0.0-1.0); MONOCYTES % (AUTO) 3 % (0-12); NEUTROPHILS # (AUTO) 3.6 X 10^3 (1.8-7.8); NEUTROPHILS % (AUTO) 18 % (42-75); PLATELET COUNT 191 10^3/uL (130-400); RED CELL DISTRIBUTION WIDTH 12.8 % (10.0-14.5); WHITE BLOOD COUNT 19.7 10^3/uL (4.3-11.0)
[2017-10-02 09:23] LABS: ALANINE AMINOTRANSFERASE 99 U/L (0-55); ALBUMIN 4.6 GM/DL (3.2-4.5); ALKALINE PHOSPHATASE 50 U/L (40-136); BILIRUBIN,TOTAL 1.8 MG/DL (0.1-1.0); BUN/CREATININE RATIO 19; CALCIUM 9.4 MG/DL (8.5-10.1); CARBON DIOXIDE 25 MMOL/L (21-32); CHLORIDE 105 MMOL/L (98-107); CREATININE SERUM 1.04 MG/DL (0.60-1.30); GFR ESTIMATED > 60; GLUCOSE 158 MG/DL (70-105); POTASSIUM 4.3 MMOL/L (3.6-5.0); SODIUM 140 MMOL/L (135-145); TOTAL PROTEIN 6.9 GM/DL (6.4-8.2)
== END ==
LOC: ONC 08:46 → EDSTATUS 16:28
PROVIDERS: ATTEND Internal Medicine Hematology & Oncology
DX: C91.10 Chronic lymphocytic leukemia of B-cell type not having achieved remission (principal); I48.91 Unspecified atrial fibrillation; J44.9 Chronic obstructive pulmonary disease, unspecified; F32.9 Major depressive disorder, single episode, unspecified; Z79.899 Other long term (current) drug therapy
CPT/HCPCS: 36415; 80053; 85025; 99213

== ENCOUNTER → 2017-10-10 | Outpatient (CLI) | payer MEDICARE, MEDICAID | LOC: RAD 13:04 | PROVIDERS: ATTEND Internal Medicine Cardiovascular Disease | DX: I07.1 Rheumatic tricuspid insufficiency (principal); D80.1 Nonfamilial hypogammaglobulinemia; D70.2 Other drug-induced agranulocytosis; I48.0 Paroxysmal atrial fibrillation; R00.2 Palpitations | CPT/HCPCS: 93306 ==

== ENCOUNTER 2018-01-15 10:34 | Outpatient (RCR) | payer MEDICARE, MEDICAID ==
[2018-01-15 10:38] LABS: BASOPHILS % (AUTO) 0 % (0-10); EOSINOPHILS # (AUTO) 0.4 10^3/uL (0.0-0.3); EOSINOPHILS % (AUTO) 2 % (0-10); HEMATOCRIT 39 % (40-54); HEMOGLOBIN 13.1 G/DL (13.3-17.7); LYMPHOCYTES # (AUTO) 14.2 X 10^3 (1.0-4.0); LYMPHOCYTES % (AUTO) 76 % (12-44); MEAN CORPUSCULAR HEMOGLOBIN 32 PG (25-34); MEAN CORPUSCULAR HGB CONC 33 G/DL (32-36); MEAN CORPUSCULAR VOLUME 96 FL (80-99); MONOCYTES # (AUTO) 0.5 X 10^3 (0.0-1.0); MONOCYTES % (AUTO) 3 % (0-12); NEUTROPHILS # (AUTO) 3.5 X 10^3 (1.8-7.8); NEUTROPHILS % (AUTO) 19 % (42-75); PLATELET COUNT 202 10^3/uL (130-400); RED CELL DISTRIBUTION WIDTH 12.9 % (10.0-14.5); WHITE BLOOD COUNT 18.7 10^3/uL (4.3-11.0)
[2018-01-15 10:56] LABS: ALANINE AMINOTRANSFERASE 57 U/L (0-55); ALBUMIN 4.4 GM/DL (3.2-4.5); ALKALINE PHOSPHATASE 54 U/L (40-136); BILIRUBIN,TOTAL 1.2 MG/DL (0.1-1.0); BUN/CREATININE RATIO 17; CALCIUM 9.1 MG/DL (8.5-10.1); CARBON DIOXIDE 23 MMOL/L (21-32); CHLORIDE 106 MMOL/L (98-107); CREATININE SERUM 0.93 MG/DL (0.60-1.30); GFR ESTIMATED > 60; GLUCOSE 199 MG/DL (70-105); POTASSIUM 4.1 MMOL/L (3.6-5.0); SODIUM 138 MMOL/L (135-145); TOTAL PROTEIN 6.9 GM/DL (6.4-8.2)
== END 2018-04-15 | disposition home or self-care (01) ==
LOC: ONC 10:34
PROVIDERS: ATTEND Internal Medicine Hematology & Oncology
DX: C91.10 Chronic lymphocytic leukemia of B-cell type not having achieved remission (principal); I48.91 Unspecified atrial fibrillation; J44.9 Chronic obstructive pulmonary disease, unspecified; F32.9 Major depressive disorder, single episode, unspecified; Z79.899 Other long term (current) drug therapy
CPT/HCPCS: 36415; 80053; 83615; 85025; 99213

== ENCOUNTER 2018-05-14 10:27 | Outpatient (RCR) | payer MEDICARE, MEDICAID ==
[~2018-05-14 10:27] MED LIST changes: -SOTA80TA PO; +STL80T PO
[2018-05-14 10:42] LABS: BASOPHILS % (AUTO) 0 % (0-10); EOSINOPHILS # (AUTO) 0.2 10^3/uL (0.0-0.3); EOSINOPHILS % (AUTO) 1 % (0-10); HEMATOCRIT 41 % (40-54); HEMOGLOBIN 13.5 G/DL (13.3-17.7); LYMPHOCYTES # (AUTO) 16.8 X 10^3 (1.0-4.0); LYMPHOCYTES % (AUTO) 80 % (12-44); MEAN CORPUSCULAR HEMOGLOBIN 32 PG (25-34); MEAN CORPUSCULAR HGB CONC 33 G/DL (32-36); MEAN CORPUSCULAR VOLUME 97 FL (80-99); MEAN PLATELET VOLUME 10.4 FL (7.4-10.4); MONOCYTES # (AUTO) 0.5 X 10^3 (0.0-1.0); MONOCYTES % (AUTO) 2 % (0-12); NEUTROPHILS # (AUTO) 3.4 X 10^3 (1.8-7.8); NEUTROPHILS % (AUTO) 16 % (42-75); PLATELET COUNT 169 10^3/uL (130-400); RED CELL DISTRIBUTION WIDTH 13.4 % (10.0-14.5)
[2018-05-14 11:01] LABS: ALANINE AMINOTRANSFERASE 53 U/L (0-55); ALBUMIN 4.3 GM/DL (3.2-4.5); ALKALINE PHOSPHATASE 50 U/L (40-136); BILIRUBIN,TOTAL 0.9 MG/DL (0.1-1.0); BUN/CREATININE RATIO 25; CALCIUM 9.3 MG/DL (8.5-10.1); CARBON DIOXIDE 24 MMOL/L (21-32); CHLORIDE 106 MMOL/L (98-107); CREATININE SERUM 1.07 MG/DL (0.60-1.30); GFR ESTIMATED > 60; GLUCOSE 242 MG/DL (70-105); POTASSIUM 4.4 MMOL/L (3.6-5.0); SODIUM 138 MMOL/L (135-145); TOTAL PROTEIN 6.6 GM/DL (6.4-8.2)
== END 2018-08-12 | disposition home or self-care (01) ==
LOC: ONC 10:27
PROVIDERS: ATTEND Internal Medicine Hematology & Oncology
DX: C91.10 Chronic lymphocytic leukemia of B-cell type not having achieved remission (principal); I48.91 Unspecified atrial fibrillation; J44.9 Chronic obstructive pulmonary disease, unspecified; F32.9 Major depressive disorder, single episode, unspecified; Z79.899 Other long term (current) drug therapy
CPT/HCPCS: 36415; 80053; 83615; 85025; 99213

== ENCOUNTER 2018-10-23 08:46 | Outpatient (RCR) | payer MEDICARE, MEDICAID ==
[2018-08-13 10:51] LABS: BASOPHILS % (AUTO) 0 % (0-10); EOSINOPHILS # (AUTO) 0.5 10^3/uL (0.0-0.3); EOSINOPHILS % (AUTO) 2 % (0-10); HEMATOCRIT 42 % (40-54); HEMOGLOBIN 13.9 G/DL (13.3-17.7); LYMPHOCYTES % (AUTO) 84 % (12-44); MEAN CORPUSCULAR HEMOGLOBIN 32 PG (25-34); MEAN CORPUSCULAR HGB CONC 33 G/DL (32-36); MEAN CORPUSCULAR VOLUME 96 FL (80-99); MEAN PLATELET VOLUME 10.5 FL (7.4-10.4); MONOCYTES # (AUTO) 0.4 X 10^3 (0.0-1.0); MONOCYTES % (AUTO) 2 % (0-12); NEUTROPHILS # (AUTO) 3.3 X 10^3 (1.8-7.8); NEUTROPHILS % (AUTO) 12 % (42-75); PLATELET COUNT 172 10^3/uL (130-400); RED CELL DISTRIBUTION WIDTH 13.4 % (10.0-14.5); WHITE BLOOD COUNT 27.2 10^3/uL (4.3-11.0)
[2018-08-13 11:16] LABS: ALANINE AMINOTRANSFERASE 57 U/L (0-55); ALBUMIN 4.4 GM/DL (3.2-4.5); ALKALINE PHOSPHATASE 53 U/L (40-136); BUN/CREATININE RATIO 17; CALCIUM 9.1 MG/DL (8.5-10.1); CARBON DIOXIDE 24 MMOL/L (21-32); CHLORIDE 108 MMOL/L (98-107); CREATININE SERUM 1.03 MG/DL (0.60-1.30); GFR ESTIMATED > 60; GLUCOSE 193 MG/DL (70-105); POTASSIUM 4.4 MMOL/L (3.6-5.0); SODIUM 140 MMOL/L (135-145); TOTAL PROTEIN 6.6 GM/DL (6.4-8.2)
[2018-10-23 09:29] LABS: BASOPHILS % (AUTO) 0 % (0-10); EOSINOPHILS # (AUTO) 0.1 10^3/uL (0.0-0.3); EOSINOPHILS % (AUTO) 0 % (0-10); HEMATOCRIT 42 % (40-54); HEMOGLOBIN 13.8 G/DL (13.3-17.7); LYMPHOCYTES % (AUTO) 86 % (12-44); MEAN CORPUSCULAR HEMOGLOBIN 32 PG (25-34); MEAN CORPUSCULAR HGB CONC 33 G/DL (32-36); MEAN CORPUSCULAR VOLUME 97 FL (80-99); MEAN PLATELET VOLUME 10.4 FL (7.4-10.4); MONOCYTES # (AUTO) 0.5 X 10^3 (0.0-1.0); MONOCYTES % (AUTO) 2 % (0-12); NEUTROPHILS # (AUTO) 2.8 X 10^3 (1.8-7.8); NEUTROPHILS % (AUTO) 11 % (42-75); PLATELET COUNT 129 10^3/uL (130-400); RED CELL DISTRIBUTION WIDTH 13.9 % (10.0-14.5); WHITE BLOOD COUNT 24.4 10^3/uL (4.3-11.0)
[2018-10-23 09:45] LABS: ALANINE AMINOTRANSFERASE 134 U/L (0-55); ALBUMIN 4.4 GM/DL (3.2-4.5); ALKALINE PHOSPHATASE 62 U/L (40-136); BUN/CREATININE RATIO 11; CALCIUM 8.6 MG/DL (8.5-10.1); CARBON DIOXIDE 22 MMOL/L (21-32); CHLORIDE 105 MMOL/L (98-107); CREATININE SERUM 1.11 MG/DL (0.60-1.30); GFR ESTIMATED > 60; GLUCOSE 171 MG/DL (70-105); POTASSIUM 4.2 MMOL/L (3.6-5.0); SODIUM 139 MMOL/L (135-145); TOTAL PROTEIN 6.8 GM/DL (6.4-8.2)
[2018-10-23] MEDS ORDERED: NS IV 1000 ML (CANCER CTR) 1,000 ML ONE (10:00)
== END 2018-11-11 | disposition home or self-care (01) ==
LOC: ONC 08:46
PROVIDERS: ATTEND Internal Medicine Hematology & Oncology
DX: C91.10 Chronic lymphocytic leukemia of B-cell type not having achieved remission (principal); I48.91 Unspecified atrial fibrillation; J44.9 Chronic obstructive pulmonary disease, unspecified; F32.9 Major depressive disorder, single episode, unspecified; Z79.899 Other long term (current) drug therapy
CPT/HCPCS: 36415; 80053; 83615; 85025; 96360; 99213

== ENCOUNTER 2018-12-18 09:43 | Outpatient (RCR) | payer MEDICARE, MEDICAID ==
[2018-11-20 10:46] LABS: BASOPHILS # (AUTO) 0.1 10^3/uL (0.0-0.1); BASOPHILS % (AUTO) 0 % (0-10); EOSINOPHILS # (AUTO) 0.5 10^3/uL (0.0-0.3); EOSINOPHILS % (AUTO) 2 % (0-10); HEMATOCRIT 41 % (40-54); HEMOGLOBIN 13.7 G/DL (13.3-17.7); LYMPHOCYTES # (AUTO) 28.5 X 10^3 (1.0-4.0); LYMPHOCYTES % (AUTO) 89 % (12-44); MEAN CORPUSCULAR HEMOGLOBIN 32 PG (25-34); MEAN CORPUSCULAR HGB CONC 33 G/DL (32-36); MEAN CORPUSCULAR VOLUME 97 FL (80-99); MEAN PLATELET VOLUME 10.3 FL (7.4-10.4); MONOCYTES # (AUTO) 0.2 X 10^3 (0.0-1.0); MONOCYTES % (AUTO) 1 % (0-12); NEUTROPHILS % (AUTO) 9 % (42-75); PLATELET COUNT 186 10^3/uL (130-400); RED CELL DISTRIBUTION WIDTH 13.4 % (10.0-14.5)
[2018-11-20 10:48] LABS: WHITE BLOOD COUNT 32.3 10^3/uL (4.3-11.0)
[2018-11-20 11:04] LABS: ALANINE AMINOTRANSFERASE 111 U/L (0-55); ALBUMIN 4.3 GM/DL (3.2-4.5); ALKALINE PHOSPHATASE 62 U/L (40-136); BILIRUBIN,TOTAL 1.2 MG/DL (0.1-1.0); BUN/CREATININE RATIO 16; CARBON DIOXIDE 22 MMOL/L (21-32); CHLORIDE 107 MMOL/L (98-107); CREATININE SERUM 1.05 MG/DL (0.60-1.30); GFR ESTIMATED > 60; GLUCOSE 221 MG/DL (70-105); POTASSIUM 4.5 MMOL/L (3.6-5.0); SODIUM 138 MMOL/L (135-145); TOTAL PROTEIN 6.9 GM/DL (6.4-8.2)
[2018-11-20 23:57] LABS: HEPATITIS C ANTIBODY C Non-Reactive (Non-Reactive)
[2018-12-18 10:01] LABS: BASOPHILS # (AUTO) 0.1 10^3/uL (0.0-0.1); BASOPHILS % (AUTO) 0 % (0-10); EOSINOPHILS # (AUTO) 0.2 10^3/uL (0.0-0.3); EOSINOPHILS % (AUTO) 1 % (0-10); HEMATOCRIT 41 % (40-54); HEMOGLOBIN 13.2 G/DL (13.3-17.7); LYMPHOCYTES # (AUTO) 26.4 X 10^3 (1.0-4.0); LYMPHOCYTES % (AUTO) 88 % (12-44); MEAN CORPUSCULAR HEMOGLOBIN 32 PG (25-34); MEAN CORPUSCULAR HGB CONC 33 G/DL (32-36); MEAN CORPUSCULAR VOLUME 97 FL (80-99); MEAN PLATELET VOLUME 10.4 FL (7.4-10.4); MONOCYTES # (AUTO) 0.5 X 10^3 (0.0-1.0); MONOCYTES % (AUTO) 2 % (0-12); NEUTROPHILS # (AUTO) 2.9 X 10^3 (1.8-7.8); NEUTROPHILS % (AUTO) 10 % (42-75); PLATELET COUNT 157 10^3/uL (130-400); RED CELL DISTRIBUTION WIDTH 13.3 % (10.0-14.5)
[2018-12-18 10:04] LABS: WHITE BLOOD COUNT 30.1 10^3/uL (4.3-11.0)
[2018-12-18 10:37] LABS: ALANINE AMINOTRANSFERASE 65 U/L (0-55); ALBUMIN 4.2 GM/DL (3.2-4.5); ALKALINE PHOSPHATASE 53 U/L (40-136); BILIRUBIN,TOTAL 1.2 MG/DL (0.1-1.0); BUN/CREATININE RATIO 17; CALCIUM 8.8 MG/DL (8.5-10.1); CARBON DIOXIDE 24 MMOL/L (21-32); CHLORIDE 108 MMOL/L (98-107); CREATININE SERUM 0.89 MG/DL (0.60-1.30); GFR ESTIMATED > 60; GLUCOSE 235 MG/DL (70-105); POTASSIUM 4.4 MMOL/L (3.6-5.0); SODIUM 139 MMOL/L (135-145); TOTAL PROTEIN 6.6 GM/DL (6.4-8.2)
== END 2019-02-18 | disposition home or self-care (01) ==
LOC: ONC 09:43
PROVIDERS: ATTEND Internal Medicine Hematology & Oncology
DX: C91.10 Chronic lymphocytic leukemia of B-cell type not having achieved remission (principal); I48.91 Unspecified atrial fibrillation; J44.9 Chronic obstructive pulmonary disease, unspecified; F32.9 Major depressive disorder, single episode, unspecified; Z79.899 Other long term (current) drug therapy
CPT/HCPCS: 36415; 80053; 80074; 83615; 85025; 99213

== ENCOUNTER → 2018-12-18 | Outpatient (CLI) | payer MEDICARE, MEDICAID | LOC: LAB 12:48 | PROVIDERS: ATTEND Internal Medicine Cardiovascular Disease | DX: I48.91 Unspecified atrial fibrillation (principal); D80.1 Nonfamilial hypogammaglobulinemia; C91.10 Chronic lymphocytic leukemia of B-cell type not having achieved remission; R00.2 Palpitations | CPT/HCPCS: 36415; 83036 ==

== ENCOUNTER → 2019-01-02 | Outpatient (CLI) | payer MEDICARE, MEDICAID | LOC: CARD 13:48 | PROVIDERS: ATTEND Internal Medicine Cardiovascular Disease | DX: I08.2 Rheumatic disorders of both aortic and tricuspid valves (principal); I48.91 Unspecified atrial fibrillation; D80.1 Nonfamilial hypogammaglobulinemia; C91.10 Chronic lymphocytic leukemia of B-cell type not having achieved remission | CPT/HCPCS: 93306 ==

== ENCOUNTER 2019-04-23 14:54 | Outpatient (RCR) | payer MEDICARE, MEDICAID ==
[2019-02-19 13:13] LABS: BASOPHILS # (AUTO) 0.1 10^3/uL (0.0-0.1); BASOPHILS % (AUTO) 0 % (0-10); EOSINOPHILS # (AUTO) 0.3 10^3/uL (0.0-0.3); EOSINOPHILS % (AUTO) 1 % (0-10); HEMATOCRIT 41 % (40-54); HEMOGLOBIN 13.3 G/DL (13.3-17.7); LYMPHOCYTES # (AUTO) 28.2 X 10^3 (1.0-4.0); LYMPHOCYTES % (AUTO) 89 % (12-44); MEAN CORPUSCULAR HEMOGLOBIN 32 PG (25-34); MEAN CORPUSCULAR HGB CONC 33 G/DL (32-36); MEAN CORPUSCULAR VOLUME 97 FL (80-99); MEAN PLATELET VOLUME 10.3 FL (7.4-10.4); MONOCYTES # (AUTO) 0.3 X 10^3 (0.0-1.0); MONOCYTES % (AUTO) 1 % (0-12); NEUTROPHILS # (AUTO) 3.1 X 10^3 (1.8-7.8); NEUTROPHILS % (AUTO) 10 % (42-75); PLATELET COUNT 152 10^3/uL (130-400); RED CELL DISTRIBUTION WIDTH 12.9 % (10.0-14.5)
[2019-02-19 13:16] LABS: WHITE BLOOD COUNT 31.8 10^3/uL (4.3-11.0)
[2019-02-19 13:46] LABS: ALANINE AMINOTRANSFERASE 44 U/L (0-55); ALBUMIN 4.3 GM/DL (3.2-4.5); ALKALINE PHOSPHATASE 52 U/L (40-136); BILIRUBIN,TOTAL 0.9 MG/DL (0.1-1.0); BUN/CREATININE RATIO 16; CALCIUM 9.4 MG/DL (8.5-10.1); CARBON DIOXIDE 24 MMOL/L (21-32); CHLORIDE 107 MMOL/L (98-107); GFR ESTIMATED > 60; GLUCOSE 309 MG/DL (70-105); POTASSIUM 4.6 MMOL/L (3.6-5.0); SODIUM 141 MMOL/L (135-145); TOTAL PROTEIN 6.6 GM/DL (6.4-8.2)
[~2019-04-23 14:54] MED LIST changes: +ACHYD1T PO; -HYDR-3820 PO
[2019-04-23 15:12] LABS: BASOPHILS # (AUTO) 0.1 10^3/uL (0.0-0.1); BASOPHILS % (AUTO) 0 % (0-10); EOSINOPHILS # (AUTO) 0.2 10^3/uL (0.0-0.3); EOSINOPHILS % (AUTO) 1 % (0-10); HEMATOCRIT 41 % (40-54); HEMOGLOBIN 13.7 G/DL (13.3-17.7); LYMPHOCYTES # (AUTO) 33.6 X 10^3 (1.0-4.0); LYMPHOCYTES % (AUTO) 88 % (12-44); MEAN CORPUSCULAR HEMOGLOBIN 32 PG (25-34); MEAN CORPUSCULAR HGB CONC 33 G/DL (32-36); MEAN CORPUSCULAR VOLUME 97 FL (80-99); MEAN PLATELET VOLUME 10.2 FL (7.4-10.4); MONOCYTES # (AUTO) 0.5 X 10^3 (0.0-1.0); MONOCYTES % (AUTO) 1 % (0-12); NEUTROPHILS # (AUTO) 3.9 X 10^3 (1.8-7.8); NEUTROPHILS % (AUTO) 10 % (42-75); PLATELET COUNT 175 10^3/uL (130-400); RED CELL DISTRIBUTION WIDTH 12.9 % (10.0-14.5)
[2019-04-23 15:13] LABS: WHITE BLOOD COUNT 38.3 10^3/uL (4.3-11.0)
[2019-04-23 15:35] LABS: ALANINE AMINOTRANSFERASE 34 U/L (0-55); ALBUMIN 4.4 GM/DL (3.2-4.5); ALKALINE PHOSPHATASE 64 U/L (40-136); BUN/CREATININE RATIO 19; CALCIUM 9.4 MG/DL (8.5-10.1); CARBON DIOXIDE 25 MMOL/L (21-32); CHLORIDE 105 MMOL/L (98-107); CREATININE SERUM 1.05 MG/DL (0.60-1.30); GFR ESTIMATED > 60; GLUCOSE 121 MG/DL (70-105); POTASSIUM 4.9 MMOL/L (3.6-5.0); SODIUM 139 MMOL/L (135-145); TOTAL PROTEIN 6.9 GM/DL (6.4-8.2)
== END 2019-05-20 | disposition home or self-care (01) ==
LOC: ONC 14:54
PROVIDERS: ATTEND Internal Medicine Hematology & Oncology
DX: C91.10 Chronic lymphocytic leukemia of B-cell type not having achieved remission (principal); I48.0 Paroxysmal atrial fibrillation; J44.9 Chronic obstructive pulmonary disease, unspecified; F32.9 Major depressive disorder, single episode, unspecified; R00.0 Tachycardia, unspecified; D47.Z9 Other specified neoplasms of uncertain behavior of lymphoid, hematopoietic and related tissue; K76.0 Fatty (change of) liver, not elsewhere classified; E80.6 Other disorders of bilirubin metabolism; R74.0 Nonspecific elevation of levels of transaminase and lactic acid dehydrogenase [LDH]; Z79.899 Other long term (current) drug therapy; Z98.890 Other specified postprocedural states
CPT/HCPCS: 80053; 83615; 85025; 99213

== ENCOUNTER 2019-07-02 10:31 | Outpatient (RCR) | payer MEDICARE, MEDICAID ==
[2019-07-02 10:41] LABS: HEMOGLOBIN 13.9 G/DL (13.3-17.7)
[2019-07-02 10:42] LABS: BASOPHILS # (AUTO) 0.1 10^3/uL (0.0-0.1); BASOPHILS % (AUTO) 0 % (0-10); EOSINOPHILS # (AUTO) 0.4 10^3/uL (0.0-0.3); EOSINOPHILS % (AUTO) 1 % (0-10); HEMATOCRIT 42 % (40-54); LYMPHOCYTES # (AUTO) 41.9 X 10^3 (1.0-4.0); LYMPHOCYTES % (AUTO) 92 % (12-44); MEAN CORPUSCULAR HEMOGLOBIN 32 PG (25-34); MEAN CORPUSCULAR HGB CONC 33 G/DL (32-36); MEAN CORPUSCULAR VOLUME 97 FL (80-99); MEAN PLATELET VOLUME 10.2 FL (7.4-10.4); MONOCYTES # (AUTO) 0.8 X 10^3 (0.0-1.0); MONOCYTES % (AUTO) 2 % (0-12); NEUTROPHILS # (AUTO) 2.6 X 10^3 (1.8-7.8); NEUTROPHILS % (AUTO) 6 % (42-75); PLATELET COUNT 173 10^3/uL (130-400); RED CELL DISTRIBUTION WIDTH 13.5 % (10.0-14.5)
[2019-07-02 10:46] LABS: WHITE BLOOD COUNT 45.8 10^3/uL (4.3-11.0)
[2019-07-02 11:01] LABS: ALANINE AMINOTRANSFERASE 23 U/L (0-55); ALBUMIN 4.3 GM/DL (3.2-4.5); ALKALINE PHOSPHATASE 52 U/L (40-136); BILIRUBIN,TOTAL 1.4 MG/DL (0.1-1.0); BUN/CREATININE RATIO 15; CARBON DIOXIDE 24 MMOL/L (21-32); CHLORIDE 107 MMOL/L (98-107); CREATININE SERUM 1.01 MG/DL (0.60-1.30); GFR ESTIMATED > 60; GLUCOSE 188 MG/DL (70-105); POTASSIUM 4.8 MMOL/L (3.6-5.0); SODIUM 142 MMOL/L (135-145); TOTAL PROTEIN 6.7 GM/DL (6.4-8.2)
== END 2019-09-16 16:12 | disposition home or self-care (01) ==
LOC: ONC 10:31
PROVIDERS: ATTEND Internal Medicine Hematology & Oncology
DX: C91.10 Chronic lymphocytic leukemia of B-cell type not having achieved remission (principal); I48.0 Paroxysmal atrial fibrillation; J44.9 Chronic obstructive pulmonary disease, unspecified; F32.9 Major depressive disorder, single episode, unspecified; R00.0 Tachycardia, unspecified; D47.Z9 Other specified neoplasms of uncertain behavior of lymphoid, hematopoietic and related tissue; K76.0 Fatty (change of) liver, not elsewhere classified; E80.6 Other disorders of bilirubin metabolism; R74.0 Nonspecific elevation of levels of transaminase and lactic acid dehydrogenase [LDH]; Z79.899 Other long term (current) drug therapy; Z98.890 Other specified postprocedural states
CPT/HCPCS: 80053; 83615; 85025; G0463; 99213

== ENCOUNTER → 2019-09-17 | Outpatient (CLI) | payer MEDICARE, MEDICAID ==
[2019-09-17 10:16] LABS: BASOPHILS # (AUTO) 0.1 10^3/uL (0.0-0.1); BASOPHILS % (AUTO) 0 % (0-10); EOSINOPHILS # (AUTO) 0.2 10^3/uL (0.0-0.3); EOSINOPHILS % (AUTO) 1 % (0-10); HEMATOCRIT 41 % (40-54); HEMOGLOBIN 13.5 G/DL (13.3-17.7); LYMPHOCYTES # (AUTO) 39.5 X 10^3 (1.0-4.0); LYMPHOCYTES % (AUTO) 93 % (12-44); MEAN CORPUSCULAR HEMOGLOBIN 32 PG (25-34); MEAN CORPUSCULAR HGB CONC 33 G/DL (32-36); MEAN CORPUSCULAR VOLUME 97 FL (80-99); MEAN PLATELET VOLUME 10.1 FL (7.4-10.4); MONOCYTES # (AUTO) 0.1 X 10^3 (0.0-1.0); MONOCYTES % (AUTO) 0 % (0-12); NEUTROPHILS # (AUTO) 2.6 X 10^3 (1.8-7.8); NEUTROPHILS % (AUTO) 6 % (42-75); PLATELET COUNT 164 10^3/uL (130-400); RED CELL DISTRIBUTION WIDTH 13.4 % (10.0-14.5)
[2019-09-17 10:17] LABS: WHITE BLOOD COUNT 42.5 10^3/uL (4.3-11.0)
[2019-09-17 10:36] LABS: ALBUMIN 4.3 GM/DL (3.2-4.5); CALCIUM 9.1 MG/DL (8.5-10.1); CREATININE SERUM 1.21 MG/DL (0.60-1.30); POTASSIUM 5.1 MMOL/L (3.6-5.0); TOTAL PROTEIN 6.8 GM/DL (6.4-8.2)
== END ==
LOC: ONC 09:57
PROVIDERS: ATTEND Internal Medicine Hematology & Oncology
DX: C91.10 Chronic lymphocytic leukemia of B-cell type not having achieved remission (principal); D47.Z9 Other specified neoplasms of uncertain behavior of lymphoid, hematopoietic and related tissue; J44.9 Chronic obstructive pulmonary disease, unspecified; I48.91 Unspecified atrial fibrillation
CPT/HCPCS: 80053; 83615; 85025; G0463; 99213

== ENCOUNTER → 2019-11-27 | Outpatient (CLI) | payer MEDICARE, MEDICAID ==
[2019-11-27 10:17] LABS: BASOPHILS # (AUTO) 0.1 10^3/uL (0.0-0.1); BASOPHILS % (AUTO) 0 % (0-10); EOSINOPHILS # (AUTO) 0.3 10^3/uL (0.0-0.3); EOSINOPHILS % (AUTO) 1 % (0-10); HEMATOCRIT 41 % (40-54); HEMOGLOBIN 13.5 G/DL (13.3-17.7); LYMPHOCYTES # (AUTO) 49.5 X 10^3 (1.0-4.0); LYMPHOCYTES % (AUTO) 91 % (12-44); MEAN CORPUSCULAR HEMOGLOBIN 32 PG (25-34); MEAN CORPUSCULAR HGB CONC 33 G/DL (32-36); MEAN CORPUSCULAR VOLUME 97 FL (80-99); MEAN PLATELET VOLUME 10.1 FL (7.4-10.4); MONOCYTES # (AUTO) 0.9 X 10^3 (0.0-1.0); MONOCYTES % (AUTO) 2 % (0-12); NEUTROPHILS # (AUTO) 3.6 X 10^3 (1.8-7.8); NEUTROPHILS % (AUTO) 7 % (42-75); PLATELET COUNT 153 10^3/uL (130-400)
[2019-11-27 10:18] LABS: WHITE BLOOD COUNT 54.3 10^3/uL (4.3-11.0)
[2019-11-27 11:07] LABS: SMEAR SCAN COMMENT YES
== END ==
LOC: ONC 10:04
PROVIDERS: ATTEND Internal Medicine Hematology & Oncology
DX: C91.10 Chronic lymphocytic leukemia of B-cell type not having achieved remission (principal); I48.91 Unspecified atrial fibrillation; J44.9 Chronic obstructive pulmonary disease, unspecified
CPT/HCPCS: 84443; 85025; G0463; 99213

== ENCOUNTER → 2020-01-11 | Outpatient (CLI) | payer MEDICARE, MEDICAID ==
[~2020-01-11] MED LIST changes: -AMIO200T4 PO; +AMIO200T6 PO
[2020-01-11 15:10] LABS: BASOPHILS # (AUTO) 0.1 10^3/uL (0.0-0.1); BASOPHILS % (AUTO) 0 % (0-10); EOSINOPHILS # (AUTO) 0.2 10^3/uL (0.0-0.3); EOSINOPHILS % (AUTO) 0 % (0-10); HEMATOCRIT 41 % (40-54); HEMOGLOBIN 13.1 g/dL (13.3-17.7); LYMPHOCYTES # (AUTO) 47.8 10^3/uL (1.0-4.0); LYMPHOCYTES % (AUTO) 93 % (12-44); MEAN CORPUSCULAR HEMOGLOBIN 32 pg (25-34); MEAN CORPUSCULAR HGB CONC 32 g/dL (32-36); MEAN CORPUSCULAR VOLUME 98 fL (80-99); MEAN PLATELET VOLUME 9.9 fL (9.0-12.2); MONOCYTES # (AUTO) 0.3 10^3/uL (0.0-1.0); MONOCYTES % (AUTO) 1 % (0-12); NEUTROPHILS # (AUTO) 3.2 10^3/uL (1.8-7.8); NEUTROPHILS % (AUTO) 6 % (42-75); PLATELET COUNT 159 10^3/uL (130-400)
[2020-01-11 15:12] LABS: WHITE BLOOD COUNT 51.6 10^3/uL (4.3-11.0)
[2020-01-11 15:32] LABS: ALANINE AMINOTRANSFERASE 37 U/L (0-55); ALBUMIN 4.4 GM/DL (3.2-4.5); ALKALINE PHOSPHATASE 55 U/L (40-136); BILIRUBIN,TOTAL 1.8 MG/DL (0.1-1.0); BUN/CREATININE RATIO 18; CALCIUM 9.6 MG/DL (8.5-10.1); CARBON DIOXIDE 27 MMOL/L (21-32); CHLORIDE 107 MMOL/L (98-107); CREATININE SERUM 0.83 MG/DL (0.60-1.30); GFR ESTIMATED > 60; GLUCOSE 128 MG/DL (70-105); POTASSIUM 4.7 MMOL/L (3.6-5.0); SODIUM 142 MMOL/L (135-145); TOTAL PROTEIN 6.8 GM/DL (6.4-8.2); URIC ACID 4.7 MG/DL (2.6-7.2)
== END ==
LOC: ONC 14:57
PROVIDERS: ATTEND Internal Medicine Hematology & Oncology
DX: C91.10 Chronic lymphocytic leukemia of B-cell type not having achieved remission (principal); I48.0 Paroxysmal atrial fibrillation; J44.9 Chronic obstructive pulmonary disease, unspecified; E03.9 Hypothyroidism, unspecified
CPT/HCPCS: 80053; 83615; 84443; 84550; 85025; G0463; 99213

== ENCOUNTER → 2020-04-04 | Outpatient (CLI) | payer MEDICARE, MEDICAID ==
[~2020-04-04] MED LIST changes: +ESCI-2 PO; -ESCI10TA55 PO
[2020-04-04 14:50] LABS: BASOPHILS # (AUTO) 0.1 10^3/uL (0.0-0.1); BASOPHILS % (AUTO) 0 % (0-10); EOSINOPHILS # (AUTO) 0.1 10^3/uL (0.0-0.3); EOSINOPHILS % (AUTO) 0 % (0-10); HEMATOCRIT 41 % (40-54); HEMOGLOBIN 13.2 g/dL (13.3-17.7); LYMPHOCYTES # (AUTO) 45.8 X 10^3 (1.0-4.0); LYMPHOCYTES % (AUTO) 94 % (12-44); MEAN CORPUSCULAR HEMOGLOBIN 32 pg (25-34); MEAN CORPUSCULAR HGB CONC 32 g/dL (32-36); MEAN CORPUSCULAR VOLUME 99 fL (80-99); MEAN PLATELET VOLUME 9.9 fL (9.0-12.2); MONOCYTES # (AUTO) 0.3 X 10^3 (0.0-1.0); MONOCYTES % (AUTO) 1 % (0-12); NEUTROPHILS # (AUTO) 2.5 X 10^3 (1.8-7.8); NEUTROPHILS % (AUTO) 5 % (42-75); PLATELET COUNT 133 10^3/uL (130-400)
[2020-04-04 14:52] LABS: WHITE BLOOD COUNT 48.8 10^3/uL (4.3-11.0)
[2020-04-04 15:09] LABS: ALANINE AMINOTRANSFERASE 31 U/L (0-55); ALBUMIN 4.2 GM/DL (3.2-4.5); ALKALINE PHOSPHATASE 60 U/L (40-136); BILIRUBIN,TOTAL 1.5 MG/DL (0.1-1.0); BUN/CREATININE RATIO 13; CALCIUM 9.3 MG/DL (8.5-10.1); CARBON DIOXIDE 24 MMOL/L (21-32); CHLORIDE 105 MMOL/L (98-107); CREATININE SERUM 1.13 MG/DL (0.60-1.30); GFR ESTIMATED > 60; GLUCOSE 300 MG/DL (70-105); POTASSIUM 5.4 MMOL/L (3.6-5.0); SODIUM 142 MMOL/L (135-145); TOTAL PROTEIN 6.5 GM/DL (6.4-8.2); URIC ACID 5.1 MG/DL (2.6-7.2)
== END ==
LOC: ONC 14:35
PROVIDERS: ATTEND Internal Medicine Hematology & Oncology
DX: C91.90 Lymphoid leukemia, unspecified not having achieved remission (principal); I48.91 Unspecified atrial fibrillation
CPT/HCPCS: 80053; 83615; 84550; 85025; G0463; 99213

== ENCOUNTER → 2020-06-27 | Outpatient (CLI) | payer MEDICARE, MEDICAID ==
[~2020-06-27] VITALS: Ht 177 cm; Wt 79.0 kg
[~2020-06-27] MED LIST changes: +REGADENOSON 0.4 MG/5 ML SYR (LEXISCAN) IV ONE; +dilTIAZem120 MG (CARDIZEM CD) CAP PO SCH
[2020-06-27] MEDS: CATHETER FLUSH 10 ML SYR IV PRN ×2 (11:03→12:14)
[2020-06-27 12:13] VITALS: BP 138/89
--- NOTE | 2020-06-28 08:27 | Cardiology Stress Test Report ---
Stress Test Report Date of Procedure/Referring: Date of Procedure: Jun 27, 2020 Kimberli Meza Admitting Physician Jack Lemos DO Indications: atrial fibrillation Baseline Heart Rate: 141 Baseline Blood Pressure: Blood Pressure Systolic: 138 Blood Pressure Diastolic: 89 Baseline Vitals Vital Signs Date Time Temp Pulse Resp B/P (MAP) Pulse Ox O2 Delivery O2 Flow Rate FiO2 06/27/20 12:13 145 138/89 (105) 99 Room Air Baseline EKG: Baseline EKG: Atrial fibrillation with rapid ventricular response Summary After explaining the procedure to the patient, he signed a consent and then brought to the stress nuclear laboratory. Patient received 0.4 mg Lexiscan for stress test, ECG, heart rate and blood pressure were monitored continuously. Resting and stress dose of radio tracer were injected, imaging was acquired and reviewed in short axis, horizontal long axis and vertical long axis views. TID: 1.05 SSS: 2 SDS: 2 EF: 48 1. Patient tolerated Lexiscan well 2. Baseline atrial fibrillation with rapid ventricular response persisted during test 3. Diaphragmatic attenuation with mild decreased uptake in the mid to apical inferior wall with subtle reversibility 4. Normal left ventricular size, ejection fraction 48%, gated images are unreliable due to underlying atrial fibrillation JASMINA SHARMA MD Jun 28, 2020 08:27
== END ==
LOC: CARD 10:05
PROVIDERS: ATTEND Physician Assistant
DX: I48.91 Unspecified atrial fibrillation (principal); I10 Essential (primary) hypertension; I34.0 Nonrheumatic mitral (valve) insufficiency
CPT/HCPCS: 78452; 93017; 93306; A9502

== ENCOUNTER → 2020-07-04 | Outpatient (CLI) | payer MEDICARE, MEDICAID ==
[~2020-07-04] MED LIST changes: +ACET-2267 PO; +CALC-250 PO; +CALC600T91 PO; +HYDR-3820 PO; +METF-397 PO; -REGADENOSON 0.4 MG/5 ML SYR (LEXISCAN) IV ONE; +TURM500C4 PO; -dilTIAZem120 MG (CARDIZEM CD) CAP PO SCH
== END ==
LOC: LABNPT 11:27
PROVIDERS: ATTEND Internal Medicine Cardiovascular Disease
DX: Z01.818 Encounter for other preprocedural examination (principal); Z20.822 Contact with and (suspected) exposure to COVID-19
CPT/HCPCS: 87635

== ENCOUNTER 2020-07-06 10:00 | Outpatient (CLI) | payer MEDICARE, MEDICAID ==
[~2020-07-06] VITALS: Ht 177.8 cm; Wt 81.2 kg
[~2020-07-06 10:00] MED LIST changes: -ACET-2267 PO; -CALC-250 PO; -CALC600T91 PO; -HYDR-3820 PO; -METF-397 PO; -TURM500C4 PO
[2020-07-06] MEDS ORDERED: LIDOCAINE 2% VISCOUS 15 ML UDC ONE (10:17)
[2020-07-06] MEDS ORDERED: LIDOCAINE 1% INJ 20 ML 20 ML VIAL ONE (10:17)
[2020-07-06] MEDS ORDERED: NS IV 1000 ML 1,000 ML ONE (10:18)
[2020-07-06] MEDS ORDERED: NS IV 1000 ML 1,000 ML IV SCH ×2 (10:30→10:45)
[2020-07-06 11:11] LABS: HEMOGLOBIN 12.7 g/dL (13.3-17.7); MEAN PLATELET VOLUME 10.1 fL (9.0-12.2)
[2020-07-06 11:12] LABS: BILIRUBIN,URINE NEGATIVE (NEGATIVE); CLARITY,URINE CLEAR; COLOR,URINE YELLOW; GLUCOSE, URINE (UA) NEGATIVE (NEGATIVE); KETONES,URINE NEGATIVE (NEGATIVE); LEUKOCYTE ESTERASE ,URINE NEGATIVE (NEGATIVE); NITRITE,URINE NEGATIVE (NEGATIVE); PROTEIN,URINE NEGATIVE (NEGATIVE)
[2020-07-06 11:15] LABS: WHITE BLOOD COUNT 62.3 10^3/uL (4.3-11.0)
[2020-07-06] MEDS ORDERED: MIDAZOLAM 2 MG/2 ML (VERSED) VIAL ONE (11:17)
[2020-07-06] MEDS ORDERED: proPOfol 200 MG/20 ML (DIPRIVAN) VIAL IV ONE (11:17)
[2020-07-06 11:21] LABS: BACTERIA,URINE NEGATIVE /HPF; RBC,URINE 25-50 /HPF; SQUAMOUS EPITHELIAL CELL,UR RARE /HPF; WBC,URINE RARE /HPF
[2020-07-06 11:35] LABS: INR 1.1 (0.8-1.4); PROTHROMBIN TIME PATIENT 14.5 SEC (12.2-14.7)
--- NOTE | 2020-07-06 11:37 | Conscious Sedation/ASA ---
Conscious Sedation Pre-Proced Time 11:37 ASA Score 3 For ASA 3 and 4: Consider anesthesia and medical clearance. Also, for patients with a history of failed moderate sedation consider anesthesia. Airway Lungs Heart ASA score ASA 1: a normal healthy patient ASA 2: a patient with a mild systemic disease (mid diabetes, controlled hypertension, obesity x ASA 3: a patient with a severe systemic disease that limits activity (angina, COPD, prior Myocardial infarction) ASA 4: a patient with an incapacitating disease that is a constant threat to life (CHF, renal failure) ASA 5: a moribund patient not expected to survive 24 hrs. (ruptured aneurysm) ASA 6: a declared brain- patient whose organs are being harvested. For emergent operations, add the letter E after the classification Mallampati Classification Grade 3 Sedation Plan Analgesia, Amnesia, Plan communicated to team members, Discussed options with patient/fam, Discussed risks with patient/fam The patient is an appropriate candidate to undergo the planned procedure, sedation, and anesthesia. The patient immediately re-assessed prior to indication. JASMINA SHARMA MD Jul 06, 2020 11:37 am
[2020-07-06 11:44] LABS: ALANINE AMINOTRANSFERASE 22 U/L (0-55); ALBUMIN 4.4 GM/DL (3.2-4.5); ALKALINE PHOSPHATASE 53 U/L (40-136); BILIRUBIN,TOTAL 1.9 MG/DL (0.1-1.0); BUN/CREATININE RATIO 16; CALCIUM 9.1 MG/DL (8.5-10.1); CARBON DIOXIDE 22 MMOL/L (21-32); CHLORIDE 105 MMOL/L (98-107); CHOLESTEROL 186 MG/DL (< 200); GFR ESTIMATED > 60; GLUCOSE 176 MG/DL (70-105); HDL CHOLESTEROL 39 MG/DL (40-60); POTASSIUM 4.3 MMOL/L (3.6-5.0); SODIUM 139 MMOL/L (135-145); TOTAL PROTEIN 6.8 GM/DL (6.4-8.2); TRIGLYCERIDES 79 MG/DL (<150); VLDL CHOLESTEROL 16 MG/DL (5-40)
[2020-07-06] MEDS ORDERED: TURM500C4 PO (11:47)
[2020-07-06] MEDS ORDERED: HYDR-3820 PO (11:47)
[2020-07-06] MEDS ORDERED: METF-397 PO (11:47)
[2020-07-06] MEDS ORDERED: CALC600T91 PO (11:47)
[2020-07-06] MEDS ORDERED: ESCI-2 PO (11:47)
[2020-07-06] MEDS ORDERED: ACET-2267 PO (11:47)
[2020-07-06] MEDS ORDERED: CALC-250 PO (11:47)
--- NOTE | 2020-07-06 12:23 | Diagnostic Imaging Report ---
INDICATION: Atrial fibrillation. TECHNIQUE/COMPARISON: A frontal chest was obtained at 11:13 AM and compared to 05/27/2017. FINDINGS: The heart is mildly enlarged. There is minimal central vascular prominence. There is no focal infiltrate, pneumothorax, or pleural fluid. IMPRESSION: Mild cardiomegaly with minimal central vascular prominence. No acute process in the chest and no change from the prior study. Dictated by: Dictated on workstation # [id number]
[2020-07-06] MEDS ORDERED: AMIODARONE INJECTION 450 MG in D5W IV SOLUTION (EXCEL) 250 ML IV SCH (12:45)
[2020-07-06] MEDS ORDERED: AMIODARONE INJECTION 150 MG in D5W 100 ML IVPB 100 ML IV ONE (12:45)
[2020-07-06] MEDS ORDERED: ACETAMINOPHEN 500 MG TAB (TYLENOL) PO PRN (13:00)
--- NOTE | 2020-07-06 13:00 | Cardioversion ---
Cardioversion PROCEDURE PHYSICIAN: Jasmina Morris DATE OF PROCEDURE: 07/06/20 DIRECT EXTERNAL ELECTRICAL CARDIOVERSION: Indications: Atrial Fibrillation with rapid ventricular rate Preoperative diagnoses: Atrial Fibrillation with rapid ventricular rate Postoperative diagnosis: Sinus rhythm, Successful Electrical Cardioversion History: Anesthesia: By Anesthesia services Complications: None Specimen: None Contrast: 0 Flouroscopy: none Procedure Details: The patient was brought the mini lab operator after informed consent was taken, all the risks and complications were explained including the risk of stroke. Electrical cardioversion was carried out with anesthesia support with propofol. 200 joules of synchronized shock was delivered twice, patient will convert to sinus rhythm then return to atrial fibrillation subsequently I decided to load him with amiodarone and planning for cardioversion tomorrow. To attempt for electrical cardioversion has Conclusions: 2 attempts for cardioversion were done today, patient was able to convert to sinus rhythm but did not maintain sinus rhythm. He is being loaded with amiodarone and planning for repeat cardioversion tomorrow Final Diagnosis: Paroxysmal atrial fibrillation Palpitation Hypertension Hyperlipidemia JASMINA MORRIS MD Jul 06, 2020 13:00
--- NOTE | 2020-07-06 13:08 | Implantation of Loop Monitor ---
Implant of Loop Monitior IMPLANTATION OF LOOP MONITOR REPORT DATE OF PROCEDURE: 07/06/20 PREOP DIAGNOSIS: Paroxysmal atrial fibrillation POSTOP DIAGNOSIS: Paroxysmal atrial fibrillation PROCEDURE DETAILS: The patient is a 70 male with history of paroxysmal atrial fibrillation requiring long-term surveillance. Therefore implantable loop recorder was discussed and agreed with the patient. Informed consent was taken. All risks and complications were discussed at length. The patient was draped and prepped in the usual sterile fashion. Local anesthesia was lidocaine, which was given in the substernal area close to the 4th intercostal space. Loop monitor Control de [employer] with serial number [id number] was implanted according to the protocol. Steri- Strips were placed at the end of the procedure. There were no complications and the patient tolerated the procedure well. The device was interrogated with a voltage of. ANESTHESIA: Local anesthesia with lidocaine. COMPLICATIONS: None CONTRAST/FLUOROSCOPY: None CONCLUSION: Successful implantation of loop monitor with no complication FINAL DIAGNOSIS: Paroxysmal atrial fibrillation Palpitation Hypertension Hyperlipidemia JASMINA SHARMA MD Jul 06, 2020 13:08
--- NOTE | 2020-07-06 13:53 | Anesthesia-General Post-Op ---
MAC Patient Condition Mental Status/LOC: Same as Preop Cardiovascular: Satisfactory Nausea/Vomiting: Absent Respiratory: Satisfactory Pain: Controlled Complications: Absent Post Op Complications Complications None Follow Up Care/Instructions Patient Instructions None needed. Anesthesiology Discharge Order Discharge Order Patient is doing well, no complaints, stable vital signs, no apparent adverse anesthesia problems. No complications reported per nursing. ROSIE HOLLINGSWORTH CRNA Jul 06, 2020 13:52
[2020-07-06] MEDS: AMIODARONE INJECTION 450 MG in D5W IV SOLUTION (EXCEL) 250 ML IV SCH ×2 (15:04→22:17)
[2020-07-06] MEDS ORDERED: LIDOCAINE 2% VISCOUS 15 ML UDC PO ONE (16:15)
[2020-07-06 17:00] VITALS: BP 132/100
[2020-07-06] MEDS ORDERED: metFORMIN 500 MG (GLUCOPHAGE) TAB PO SCH (21:00)
[2020-07-06] MEDS ORDERED: APIXABAN 5 MG (ELIQUIS) TABLET PO SCH (21:00)
[2020-07-06] MEDS ORDERED: AMIODARONE 450 MG/9 ML (CORDARONE) VIAL IV ONE (22:00)
[2020-07-06] MEDS ORDERED: D5W IV SOLUTION (EXCEL) 250 ML IV ONE (22:01)
[2020-07-07 04:28] LABS: BASOPHILS % (AUTO) 0 % (0-10); EOSINOPHILS # (AUTO) 0.1 10^3/uL (0.0-0.3); EOSINOPHILS % (AUTO) 0 % (0-10); HEMATOCRIT 39 % (40-54); HEMOGLOBIN 12.5 g/dL (13.3-17.7); LYMPHOCYTES # (AUTO) 63.3 10^3/uL (1.0-4.0); LYMPHOCYTES % (AUTO) 95 % (12-44); MEAN CORPUSCULAR HEMOGLOBIN 32 pg (25-34); MEAN CORPUSCULAR HGB CONC 32 g/dL (32-36); MEAN CORPUSCULAR VOLUME 101 fL (80-99); MEAN PLATELET VOLUME 10.5 fL (9.0-12.2); MONOCYTES # (AUTO) 0.7 10^3/uL (0.0-1.0); MONOCYTES % (AUTO) 1 % (0-12); NEUTROPHILS # (AUTO) 2.2 10^3/uL (1.8-7.8); NEUTROPHILS % (AUTO) 3 % (42-75); PLATELET COUNT 142 10^3/uL (130-400)
[2020-07-07 04:31] LABS: WHITE BLOOD COUNT 66.5 10^3/uL (4.3-11.0)
[2020-07-07 04:48] LABS: EOSINOPHILS % (MANUAL) 1 %; LYMPHOCYTES % (MANUAL) 96 %; MONOCYTES % (MANUAL) 1 %; NEUTROPHILS % (MANUAL) 2 %; RBC MORPH NORMAL
[2020-07-07 04:49] LABS: BUN/CREATININE RATIO 16; CALCIUM 8.8 MG/DL (8.5-10.1); CARBON DIOXIDE 22 MMOL/L (21-32); CHLORIDE 107 MMOL/L (98-107); CREATININE SERUM 0.88 MG/DL (0.60-1.30); GFR ESTIMATED > 60; GLUCOSE 138 MG/DL (70-105); MAGNESIUM 2.1 MG/DL (1.6-2.4); PHOSPHORUS 3.9 MG/DL (2.3-4.7); SODIUM 139 MMOL/L (135-145)
[2020-07-07] MEDS ORDERED: MULTIVIT W/MINERALS TAB (THERAGRAN M) PO SCH (07:00)
[2020-07-07] MEDS ORDERED: NS IV 1000 ML 0 ML ONE (07:15)
[2020-07-07] MEDS ORDERED: proPOfol 200 MG/20 ML (DIPRIVAN) VIAL IV ONE (07:36)
[2020-07-07] MEDS ORDERED: MIDAZOLAM 2 MG/2 ML (VERSED) VIAL ONE (07:36)
--- NOTE | 2020-07-07 08:01 | Conscious Sedation/ASA ---
Conscious Sedation Pre-Proced Time 08:01 ASA Score 3 For ASA 3 and 4: Consider anesthesia and medical clearance. Also, for patients with a history of failed moderate sedation consider anesthesia. Airway Lungs Heart ASA score ASA 1: a normal healthy patient ASA 2: a patient with a mild systemic disease (mid diabetes, controlled hypertension, obesity x ASA 3: a patient with a severe systemic disease that limits activity (angina, COPD, prior Myocardial infarction) ASA 4: a patient with an incapacitating disease that is a constant threat to life (CHF, renal failure) ASA 5: a moribund patient not expected to survive 24 hrs. (ruptured aneurysm) ASA 6: a declared brain- patient whose organs are being harvested. For emergent operations, add the letter E after the classification Mallampati Classification Grade 3 Sedation Plan Analgesia, Amnesia, Plan communicated to team members, Discussed options with patient/fam, Discussed risks with patient/fam The patient is an appropriate candidate to undergo the planned procedure, sedation, and anesthesia. The patient immediately re-assessed prior to indication. JASMINA SHARMA MD Jul 07, 2020 08:01
[2020-07-07] MEDS ORDERED: AMIO200T6 PO (08:15)
--- NOTE | 2020-07-07 08:16 | Discharge Inst-Post CATH ---
Discharge Inst-CATH/EP Problems Reviewed?: Yes Post Cardiac Cath/EP D/C Inst Follow Up/Plan Appointment with Dr Morris in 2 weeks <b>CARDIAC CATH/EP PROCEDURE DISCHARGE INSTRUCTIONS</b> ACTIVITY * Go Home directly and rest. * Limit activity of the leg (or wrist if it was used) for 7 days including aerobics, swimming, jogging, bicycling, etc. * Restrict stair-climbing for 7 days if possible, if not, climb up with your non-cath leg, then bring together on the same step. * Avoid lifting, pushing, pulling or excessive movement of the affected extremity for 7 days. * Customary sexual activity may be resumed after 2 days-use caution not to use a position that strains or causes pain to the affected extremity. * No driving for 24 hours. * NO SMOKING. * Avoid straining for bowel movements for 7 days. * Gentle walking on level ground is allowed. * Returning to work will depend on the type of procedure and the results. Your doctor will discuss this with you. CALL YOUR DOCTOR FOR ANY OF THE FOLLOWING: *If bleeding from the puncture site occurs- Apply gentle pressure to site with clean cloth and call your doctor or EMS. * If a knot or lump forms under the skin, increases in size, or causes pain. * If bruising appears to be worsening or moving further down your leg instead of disappearing. * Temperature above 101 F. CARE OF YOUR GROIN INCISION; * Bruising or purple discoloration of the skin near the puncture site is common. * You may shower only, no bathtub bathing for 5 days. Be careful to avoid slipping as your leg may feel stiff. * If a closure device was used on your femoral artery, please see the attached guide regarding care of the device and your leg. * Leave dressing on FOR 24 hours. CARE OF YOUR WRIST INCISION; * Bruising or purple discoloration of the skin near the puncture site is common. * You may shower. * DO NOT submerge wrist. * Leave dressing on FOR 24 hours. JASMINA MORRIS MD Jul 07, 2020 08:16
--- NOTE | 2020-07-07 08:44 | Cardioversion ---
Cardioversion PROCEDURE PHYSICIAN: Jasmina Morris DATE OF PROCEDURE: 07/07/20 DIRECT EXTERNAL ELECTRICAL CARDIOVERSION: Indications: Atrial Fibrillation with rapid ventricular rate Preoperative diagnoses: Atrial Fibrillation with rapid ventricular rate Postoperative diagnosis: Atrial fibrillation Anesthesia: By Anesthesia services Complications: None Specimen: None Contrast: 0 Flouroscopy: none Procedure Details: The patient was brought the agriculture laborer after informed consent was taken, all the risks and complications were explained including the risk of stroke. Electrical cardioversion was carried out with anesthesia support with propofol. 200 joules of synchronized shock was delivered for a total of 3 shocks without success in terminating atrial fibrillation Conclusions: Failed 3 attempts for cardioversion Final Diagnosis: Paroxysmal atrial fibrillation Congestive heart failure Hypertension Hyperlipidemia ZACHARY,JASMINA Sanchez MD Jul 07, 2020 08:44
--- NOTE | 2020-07-07 08:45 | Cardiology Progress Note ---
Subjective Date Seen by Provider: Jul 07, 2020 Time Seen by Provider: 08:44 Subjective/Events-last exam Patient was seen at bedside, laying down comfortably, no new complaint Review of Systems General: No Chills, No Night Sweats, No Fatigue, No Malaise, No Appetite, No Other HEENT: No Head Aches, No Visual Changes, No Eye Pain, No Ear Pain, No Dysphasia, No Sinus Congestion, No Post Nasal Drip, No Sore Throat, No Other Pulmonary: No Dyspnea, No Cough, No Pleuritic Chest Pain, No Other Cardiovascular: No: Chest Pain, Palpitations, Orthopnea, Paroxysmal Noc. Dyspnea, Edema, Lt Headedness, Other Objective-Cardiology Exam Last Set of Vital Signs Vital Signs 07/06/20 07/06/20 07/07/20 12:40 20:00 06:00 Temp 36.4 Pulse 93 Resp 21 B/P (MAP) 114/89 (97) Pulse Ox 92 O2 Delivery Room Air O2 Flow Rate 8.00 Capillary Refill : I&O Intake and Output 07/07/20 00:00 Intake Total 980 ml Output Total 1030 ml Balance -50 ml Intake Oral 980 ml Output Urine Total 1030 ml Daily Weight Change No General: Alert, Oriented X3, Cooperative HEENT: Atraumatic, PERRLA Neck: Supple, No JVD, No Thyromegaly Lungs: Clear to Auscultation, Normal Air Movement Heart: Normal S1, Normal S2, No Murmurs, Other (Atrial fibrillation) Abdomen: Normal Bowel Sounds, Soft, No Tenderness, No Hepatosplenomegaly, No Masses Extremities: No Clubbing, No Cyanosis, No Edema, Normal Pulses, No Tenderness/Swelling Skin: No Rashes, No Breakdown, No Significant Lesion Neuro: Normal Gait, Normal Speech, Strength at 5/5 X4 Ext, Normal Tone, Sensation Intact Psych/Mental Status: Mental Status NL, Mood NL Results Lab Laboratory Tests 07/06/20 11:08 07/07/20 03:55 A/P-Cardiology Admission Diagnosis Paroxysmal atrial fibrillation Hypertension Hyperlipidemia Assessment/Plan Paroxysmal atrial fibrillation, was intolerant to sotalol due to long QT interval, was intolerant to amiodarone in the past with elevated liver enzymes. Failed attempt for cardioversion, had a loop monitor implanted. I loaded him with amiodarone IV and attempted 3 times without success. Patient will be unable to tolerate 1C antiarrhythmic medication due to congestive heart failure, I will restart amiodarone loading dose and monitor liver enzymes closely. Chronic anticoagulation to reduce the risk of stroke Hypertension, monitor blood pressure Hyperlipidemia JASMINA SHARMA MD Jul 07, 2020 08:45
[2020-07-07] MEDS ORDERED: NON-FORMULARY MEDICATION 1 EA EA (Vitamin B Complex (B Complex) 1 TAB) PO SCH (09:00)
[2020-07-07] MEDS ORDERED: NON-FORMULARY MEDICATION 1 EA EA (Multivit-Min/FA/Lycopene/Lut (Centrum Silver Tablet) 1 T PO SCH (09:00)
[2020-07-07] MEDS ORDERED: VITAMIN D3 125 MCG (5,000 UNITS) CAPSULE PO SCH (09:00)
[2020-07-07] MEDS ORDERED: NON-FORMULARY MEDICATION 1 EA EA (Escitalopram Oxalate 5 MG) PO SCH (09:00)
[2020-07-07] MEDS ORDERED: NON-FORMULARY MEDICATION 1 EA EA (Turmeric/Turmeric Root Extract (Turmeric 500 mg Capsule) PO SCH (09:00)
[2020-07-07] MEDS ORDERED: CALCIUM CARBONATE 600 MG (CALCARB) TAB PO SCH (09:00)
--- NOTE | 2020-07-07 09:56 | Anesthesia-General Post-Op ---
MAC Patient Condition Mental Status/LOC: Same as Preop Cardiovascular: Satisfactory Nausea/Vomiting: Absent Respiratory: Satisfactory Pain: Controlled Complications: Absent Post Op Complications Complications None Follow Up Care/Instructions Patient Instructions None needed. Anesthesiology Discharge Order Discharge Order Patient is doing well, no complaints, stable vital signs, no apparent adverse anesthesia problems. No complications reported per nursing. ROSIE HOLLINGSWORTH CRNA Jul 07, 2020 09:56
[2020-07-07] MEDS ORDERED: MAGNESIUM OXIDE 800 MG PO SCH (12:00)
[2020-07-07] MEDS ORDERED: MAGNESIUM OXIDE (MAG-OX)400 MG TAB PO SCH (12:00)
== END 2020-07-07 10:44 | disposition home or self-care (01) ==
LOC: CATH 10:00 → ICU 14:06 → CATH 07-07 10:44
PROVIDERS: ATTEND Internal Medicine Cardiovascular Disease
DX: Z01.818 Encounter for other preprocedural examination (principal); I48.0 Paroxysmal atrial fibrillation; E78.5 Hyperlipidemia, unspecified; I11.9 Hypertensive heart disease without heart failure; I34.0 Nonrheumatic mitral (valve) insufficiency
CPT/HCPCS: 33285; 71045; 80048; 80053; 80061; 81000; 83735; 84100; 85007; 85027 ×2; 85610; 85730; 87081; 92960; 93005; 93312; C1764; 36415

== ENCOUNTER 2021-01-05 07:14 | Emergency (ER) | payer MEDICARE, MEDICAID ==
[~2021-01-05] VITALS: Ht 177 cm; Wt 77.0 kg
[~2021-01-05 07:14] MED LIST changes: +ACET-2267 PO; +CALC-250 PO; +CALC600T91 PO; +HYDR-3820 PO; +METF-397 PO; +TURM500C4 PO
[2021-01-05] MEDS ORDERED: fentaNYL INJ 100 MCG/2 ML AMP IVP ONE ×2 (07:30→08:30)
[2021-01-05] MEDS ORDERED: ONDANSETRON 4 MG/2 ML (SDV) Z0FRAN IVP ONE (07:30)
[2021-01-05] MEDS ORDERED: NS IV 1000 ML 1,000 ML IV SCH (07:30)
--- NOTE | 2021-01-05 07:33 | ED Back Pain ---
General Chief Complaint: - Reproductive Stated Complaint: BLOOD IN URINE;L LOWER BACK PAIN Source of Information: Patient Exam Limitations: No Limitations History of Present Illness Date Seen by Provider: Jan 05, 2021 Time Seen by Provider: 07:18 Initial Comments Patient and his spouse present to the ER by private conveyance with chief complaint of 5 days of some hematuria now this morning with left progressively worsening 10 out of 10 flank and back pain, nausea and vomiting. He has a history of multiple kidney stones. He is on chemotherapy under the care of Dr. Simmons, oncology for CLL. One of the chemotherapy side effects is hematuria and since he was not having pain he did not consider a kidney stone as likely until today. No fevers or chills. No history of abdominal surgeries. He has not taken anything for pain because of the vomiting. He is on Eliquis. Allergies and Home Medications Allergies Coded Allergies: No Known Drug Allergies (Unverified , 08/21/13) Patient Home Medication List Home Medication List Reviewed: Yes Acetaminophen (Tylenol Extra Strength) 500 Mg Tablet, 500-1,000 MG PO Q8H PRN for PAIN-MILD (1-4), (Reported) Entered as Reported by: CURTIS MCDONALD on 07/06/20 1147 Amiodarone HCl (Amiodarone HCl) 200 Mg Tablet, 200 MG PO UD Prescribed by: JASMINA SHARMA on 07/07/20 0815 Apixaban (Eliquis) 5 Mg Tablet, 5 MG PO BID, (Reported) Entered as Reported by: RENEE STARKEY on 05/27/17 1542 Calcium Carbonate (Calcium) 600 Mg Tablet, 600 MG PO DAILY, (Reported) Entered as Reported by: CURTIS MCDONALD on 07/06/20 1147 Cephalexin (Cephalexin) 500 Mg Tablet, 500 MG PO BID Prescribed by: DANIELLE DELEON on 01/05/21 0851 Cholecalciferol (Vitamin D3) (Vitamin D3) 125 Mcg Tablet, 125 MCG PO DAILY, (Reported) Entered as Reported by: CURTIS MCDONALD on 07/06/20 1147 Diltiazem HCl (Diltiazem HCl) 90 Mg Tablet, 90 MG PO HS, (Reported) Entered as Reported by: BIBI KATHLEEN on 05/27/17 0752 Escitalopram Oxalate (Escitalopram Oxalate) 10 Mg Tablet, 5 MG PO DAILY, (Reported) Entered as Reported by: CURTIS MCDONALD on 07/06/20 1147 Hydrocodone Bit/Acetaminophen (HYDROcodone/APAP 10/325 TABLET) 1 Ea Tab, 1-2 EA PO Q6H PRN for pain Prescribed by: DAINELLE DELEON on 01/05/21 0851 Hydrocodone/Acetaminophen (Hydrocodone-Acetamin 10-325 mg) 1 Each Tablet, 1 EACH PO Q4H PRN for PAIN-MODERATE (5-7), (Reported) Entered as Reported by: CURTIS MCDONALD on 07/06/20 114 Magnesium Oxide (Magnesium) 400 Mg Capsule, 800 MG PO 1200, (Reported) Entered as Reported by: RENEE STARKEY on 05/27/17 154 Metformin HCl (Metformin HCl) 500 Mg Tablet, 500 MG PO BID, (Reported) Entered as Reported by: CURTIS MCDONALD on 07/06/20 114 Multivit-Min/FA/Lycopene/Lut (Centrum Silver Tablet) 1 Each Tablet, 1 TAB PO DAILY, (Reported) Entered as Reported by: RENEE STARKEY on 05/27/17 1542 Ondansetron (Ondansetron Odt) 4 Mg Tab.rapdis, 4-8 MG PO Q6H PRN for NAUSEA/VOMITING Prescribed by: DANIELLE DELEON on 01/05/21 0851 Turmeric/Turmeric Root Extract (Turmeric 500 mg Capsule) 1 Each Capsule, 1 EACH PO DAILY, (Reported) Entered as Reported by: CUTRIS MCDONALD on 07/06/20 114 Vitamin B Complex (B Complex) 1 Each Tablet, 1 TAB PO DAILY, (Reported) Entered as Reported by: BIBI KATHLEEN on 05/27/17 0752 Review of Systems Constitutional: No chills, No diaphoresis EENTM: No ear discharge, No ear pain Respiratory: No cough, No short of breath Cardiovascular: No chest pain, No palpitations Gastrointestinal: abdominal pain, nausea, vomiting Genitourinary: No decreased output, No discharge; dysuria, hematuria Musculoskeletal: back pain; No joint pain All Other Systems Reviewed Negative Unless Noted: Yes Past Dngvtfq-Mfohsn-Jbmdvz Hx Patient Social History Tobacco Use?: No Substance use?: No Alcohol Use?: No Pt feels they are or have been: No Immunizations Up To Date Tetanus Booster (TDap): More than 5yrs PED Vaccines UTD: No First/Initial COVID19 Vaccinat: MODERNA Seasonal Allergies Seasonal Allergies: Yes Past Medical History Surgery/Hospitalization HX: CLL Surgeries: Yes Vasectomy Respiratory: Yes Pneumonia Currently Using CPAP: No Currently Using BIPAP: No Cardiac: Yes Atrial Fibrillation Neurological: No Genitourinary: Yes Bladder Infection, Kidney Stones Gastrointestinal: Yes Gastroesophageal Reflux, Polyps Musculoskeletal: No Endocrine: Yes HEENT: Yes (left eye blurred vision) Loss of Vision: Left Hearing Impairment: Denies Cancer: Yes (CLL) Leukemia Did You Recieve Any Treatments: Yes What Type of Treatment Did You: Chemotherapy Psychosocial: Yes Sleep Difficulties, Anxiety, Depression Integumentary: No Blood Disorders: No Adverse Reaction/Blood Tranf: No Family Medical History Cardiovascular disease 19 FATHER Diabetes mellitus 19 FATHER G8 SISTER G8 SISTER G8 SISTER FH: CHF (congestive heart failure) G8 SISTER FH: atrial fibrillation 19 FATHER Fatty liver G8 BROTHER TIAs 19 MOTHER Heart Disease, Diabetes Physical Exam Vital Signs Vital Signs - First Documented 01/05/21 07:20 Temp 36.2 Pulse 62 Resp 18 B/P (MAP) 160/84 (109) Pulse Ox 96 Capillary Refill : Height, Weight, BMI Height: 5'10.00" Weight: 180lbs. 9.0oz. 81.307895pv; 25.68 BMI Method: General Appearance: WD/WN, Mild Distress HEENT: PERRL/EOMI, Pharynx Normal, Moist Mucous Membranes Neck: Full Range of Motion, Normal Inspection Cardiovascular: Regular Rate, Rhythm, Normal Peripheral Pulses Respiratory: No Accessory Muscle Use, No Respiratory Distress Gastrointestinal: Non Tender, Soft Back: Normal Inspection, CVA Tenderness (L) Extremity: Normal Capillary Refill, Normal Inspection Neurologic/Psychiatric: Alert, Oriented x3 Skin: Normal Color, Warm/Dry Progress/Results/Core Measures Results/Orders Lab Results Laboratory Tests Test 01/05/21 07:30 01/05/21 07:43 Range/Units White Blood Count 328.2 *H 4.3-11.0 10^3/uL Red Blood Count 3.33 L 4.30-5.52 10^6/uL Hemoglobin 9.4 L 13.3-17.7 g/dL Hematocrit 37 L 40-54 % Mean Corpuscular Volume 111 H 80-99 fL Mean Corpuscular Hemoglobin 28 25-34 pg Mean Corpuscular Hemoglobin Concent 25 L 32-36 g/dL Red Cell Distribution Width 18.3 H 10.0-14.5 % Platelet Count 271 130-400 10^3/uL Mean Platelet Volume 10.5 9.0-12.2 fL Immature Granulocyte % (Auto) 0 % Neutrophils (%) (Auto) 2 L 42-75 % Lymphocytes (%) (Auto) 98 H 12-44 % Monocytes (%) (Auto) 0 0-12 % Eosinophils (%) (Auto) 0 0-10 % Basophils (%) (Auto) 0 0-10 % Neutrophils # (Auto) 5.5 1.8-7.8 10^3/uL Lymphocytes # (Auto) 321.8 H 1.0-4.0 10^3/uL Monocytes # (Auto) 0.4 0.0-1.0 10^3/uL Eosinophils # (Auto) 0.0 0.0-0.3 10^3/uL Basophils # (Auto) 0.0 0.0-0.1 10^3/uL Immature Granulocyte # (Auto) 0.5 H 0.0-0.1 10^3/uL Neutrophils % (Manual) 2 % Lymphocytes % (Manual) 98 % Monocytes % (Manual) 0 % Eosinophils % (Manual) 0 % Basophils % (Manual) 0 % Band Neutrophils 0 % Smudge Cells MOD Anisocytosis MODERATE Macrocytosis MODERATE Sodium Level 137 135-145 MMOL/L Potassium Level 4.8 3.6-5.0 MMOL/L Chloride Level 103 98-107 MMOL/L Carbon Dioxide Level 22 21-32 MMOL/L Anion Gap 12 5-14 MMOL/L Blood Urea Nitrogen 16 7-18 MG/DL Creatinine 1.28 0.60-1.30 MG/DL Estimat Glomerular Filtration Rate 56 BUN/Creatinine Ratio 13 Glucose Level 319 H 70-105 MG/DL Calcium Level 9.3 8.5-10.1 MG/DL Corrected Calcium 9.1 8.5-10.1 MG/DL Total Bilirubin 1.7 H 0.1-1.0 MG/DL Aspartate Amino Transf (AST/SGOT) 32 5-34 U/L Alanine Aminotransferase (ALT/SGPT) 48 0-55 U/L Alkaline Phosphatase 86 40-136 U/L Total Protein 7.1 6.4-8.2 GM/DL Albumin 4.2 3.2-4.5 GM/DL Lipase 26 8-78 U/L Urine Color YELLOW Urine Clarity CLEAR Urine pH 6.5 5-9 Urine Specific Mer[place]old 1.025 H 1.016-1.022 Urine Protein NEGATIVE NEGATIVE Urine Glucose (UA) 3+ H NEGATIVE Urine Ketones 1+ H NEGATIVE Urine Nitrite NEGATIVE NEGATIVE Urine Bilirubin NEGATIVE NEGATIVE Urine Urobilinogen 1.0 < = 1.0 MG/DL Urine Leukocyte Esterase NEGATIVE NEGATIVE Urine RBC (Auto) 3+ H NEGATIVE Urine RBC 50-100 H /HPF Urine WBC RARE /HPF Urine Squamous Epithelial Cells NONE /HPF Urine Crystals NONE /LPF Urine Bacteria NEGATIVE /HPF Urine Casts NONE /LPF Urine Mucus NEGATIVE /LPF Urine Culture Indicated NO My Orders Orders - DANIELLE DELEON Ua Culture If Indicated (01/05/21 07:19) Cbc With Automated Diff (01/05/21 07:28) Comprehensive Metabolic Panel (01/05/21 07:28) Lipase (01/05/21 07:28) Ct Abd/Pelvis Wo(Kidney Stone) (01/05/21 07:28) Ed Iv/Invasive Line Start (01/05/21 07:28) Ns Iv 1000 Ml (Sodium Chloride 0.9%) (01/05/21 07:30) Fentanyl Inj (Sublimaze Injection) (01/05/21 07:30) Ondansetron Injection (Zofran Injectio (01/05/21 07:30) Ceftriaxone (Rocephin) (01/05/21 07:45) Manual Differential (01/05/21 07:30) Fentanyl Inj (Sublimaze Injection) (01/05/21 08:30) Morphine Injection (Morphine Injection (01/05/21 08:31) Promethazine Injection (Phenergan Injec (01/05/21 08:45) Promethazine Injection (Phenergan Injec (01/05/21 08:38) Medications Given in ED Current Medications Medications Dose Ordered Sig/Mikki Route Start Time Stop Time Status Last Admin Dose Admin Ceftriaxone Sodium 1000 mg/ Sterile Water 10 ml @ 200 mls/hr ONCE ONCE IV 01/05/21 07:45 01/05/21 07:47 DC 01/05/21 07:52 200 MLS/HR Fentanyl Citrate 50 mcg ONCE ONCE IVP 01/05/21 07:30 01/05/21 07:31 DC 01/05/21 07:40 50 MCG Ondansetron HCl 8 mg ONCE ONCE IVP 01/05/21 07:30 01/05/21 07:31 DC 01/05/21 07:39 8 MG Promethazine HCl 25 mg ONCE ONCE IVP 01/05/21 08:45 01/05/21 08:46 DC 01/05/21 08:43 25 MG Vital Signs/I&O 01/05/21 07:20 Temp 36.2 Pulse 62 Resp 18 B/P (MAP) 160/84 (109) Pulse Ox 96 Progress Progress Note #1: Time: 07:33 Progress Note Fentanyl, Zofran, a liter of fluids for his mild dehydration and a gram of Rocephin. We will get a CT scan and urinalysis as well as some basic labs. Progress Note #2: Time: 08:31 Progress Note Fentanyl only seem to work for a few minutes to quell his pain and then it came back. We will try 6 of morphine. He appears to have already passed his kidney stone. His white count is related to CLL and in line with his previous studies. Progress Note #3: Time: 08:59 Progress Note 25 mcg of Phenergan were put in his bag of 500 cc and 6 mg of morphine were given. The patient is visibly more relaxed and says his pain is much better. Since he is from out of town we will allow him to rest here until his appointment with his oncologist at 10:00. Diagnostic Imaging Diagonstic Imaging: CT Plain Films/CT/US/NM/MRI: abdomen, pelvis Comments [facility] [place], [place] NAME: RIKKI MANZO [facility] REC#: [id number] PT STATUS: REG ER : 1950 PHYSICIAN: DANIELLE DELEON MD ADMIT DATE: 01/05/21/ER Draft Date of Exam:01/05/21 CT ABD/PELVIS WO(KIDNEY STONE) Indication: Left flank pain and hematuria TECHNIQUE: Multiple contiguous axial images were obtained through the abdomen and pelvis without the use of intravenous contrast. Auto Exposure Controls were utilized during the CT exam to meet ALARA standards for radiation dose reduction. Comparison made with 04/18/2015 The visualized portions of the lung bases show a small nodular density in the right lower lobe measuring about 6 mm. This appeared similar on the prior study of 04/18/2015 and is therefore likely a benign finding. There is dependent atelectatic change in the lung bases. There is no free intraperitoneal air or fluid. The liver shows no focal lesion without contrast. A small hiatal hernia is present. The spleen is mildly enlarged measuring 15 cm in greatest transverse diameter. The adrenals and pancreas appear unremarkable. The right kidney shows a nonocclusive stone in the midpole is otherwise normal. The left kidney shows some perinephric edema and mild hydronephrosis. No definite stone is visualized at this time. There is no retroperitoneal mass or adenopathy. There is no ascites or abnormal fluid collection. Visualized bowel loops are unremarkable. There is no pelvic mass or lymphadenopathy. IMPRESSION: There is left-sided perinephric edema with mild hydronephrosis and hydroureter. I do not visualize a definite left-sided stone at this time. The possibility of a recently passed stone should be considered. A poorly opaque stone should also be considered. Underlying urothelial lesion is not excluded. Consider a study with contrast if pain persists. There is nonocclusive stone in the right kidney without hydronephrosis. There is a small hiatal hernia. There is a stable 6 mm nodule in the right lower lobe. There is mild splenomegaly. Dictated on workstation # [id number] Dict: 01/05/2107 Trans: 01/05/21 0817 [facility] [id number] Interpreted by: MERE HALL MD Electronically signed by: Reviewed: Reviewed by Me Departure Impression Primary Impression: Kidney calculus Disposition: HOME, SELF-CARE Condition: Stable Departure-Patient Inst. Decision time for Depature: 08:32 Referrals: Jack HUFF DO (PCP/Family) Primary Care Physician Patient Instructions: Kidney Stones in Adults Add. Discharge Instructions: Hydrocodone 10 x 325: 1 to 2 tablets every 6 hours as necessary to control pain. Drink lots of fluids. It appears your stone has already passed so symptoms should millicent in the next day or 2. Keflex 1 capsule twice a day for the next week to treat infection. Zofran 1 to 2 tablets under the tongue every 6 hours as necessary for nausea or vomiting. You still have some stones up in the kidney that are not obstructing anything. If you would like to speak to a urologist about getting those were broken up you may call Dr. Valente, urology and make a follow-up appointment in his clinic. Promptly return to the ER for intractable nausea, pain or fever especially above 102.5. All discharge instructions reviewed with patient and/or family. Voiced understanding. Scripts Cephalexin (Cephalexin) 500 Mg Tablet 500 MG PO BID for 7 Days, #14 TAB 0 Refills Prov: DANIELLE DELEON 01/05/21 Ondansetron (Ondansetron Odt) 4 Mg Tab.rapdis 4-8 MG PO Q6H PRN for NAUSEA/VOMITING, #20 TAB 0 Refills Prov: DANIELLE DELEON 01/05/21 Hydrocodone Bit/Acetaminophen (HYDROcodone/APAP 10/325 TABLET) 1 Ea Tab 1-2 EA PO Q6H PRN for pain for 3 Days, #20 TAB 0 Refills Prov: DANIELLE DELEON 01/05/21 DANIELLE DELEON Jan 05, 2021 07:33
[2021-01-05] MEDS ORDERED: cefTRIAXone 1,000 MG in WATER (STERILE) FOR INJECTION 10 ML IV ONE (07:45)
[2021-01-05 07:51] LABS: BILIRUBIN,URINE NEGATIVE (NEGATIVE); CLARITY,URINE CLEAR; COLOR,URINE YELLOW; GLUCOSE, URINE (UA) 3+ (NEGATIVE); KETONES,URINE 1+ (NEGATIVE); LEUKOCYTE ESTERASE ,URINE NEGATIVE (NEGATIVE); NITRITE,URINE NEGATIVE (NEGATIVE); PH,URINE 6.5 (5-9); PROTEIN,URINE NEGATIVE (NEGATIVE)
[2021-01-05 07:55] LABS: BASOPHILS % (AUTO) 0 % (0-10); EOSINOPHILS % (AUTO) 0 % (0-10); HEMATOCRIT 37 % (40-54); HEMOGLOBIN 9.4 g/dL (13.3-17.7); LYMPHOCYTES # (AUTO) 321.8 10^3/uL (1.0-4.0); LYMPHOCYTES % (AUTO) 98 % (12-44); MEAN CORPUSCULAR HEMOGLOBIN 28 pg (25-34); MEAN CORPUSCULAR HGB CONC 25 g/dL (32-36); MEAN CORPUSCULAR VOLUME 111 fL (80-99); MEAN PLATELET VOLUME 10.5 fL (9.0-12.2); MONOCYTES # (AUTO) 0.4 10^3/uL (0.0-1.0); MONOCYTES % (AUTO) 0 % (0-12); NEUTROPHILS # (AUTO) 5.5 10^3/uL (1.8-7.8); NEUTROPHILS % (AUTO) 2 % (42-75); PLATELET COUNT 271 10^3/uL (130-400)
[2021-01-05 07:59] LABS: WHITE BLOOD COUNT 328.2 10^3/uL (4.3-11.0)
[2021-01-05 08:02] LABS: ALBUMIN 4.2 GM/DL (3.2-4.5); POTASSIUM 4.8 MMOL/L (3.6-5.0)
[2021-01-05 08:03] LABS: CALCIUM 9.3 MG/DL (8.5-10.1)
[2021-01-05 08:03] LABS: BACTERIA,URINE NEGATIVE /HPF; RBC,URINE 50-100 /HPF; WBC,URINE RARE /HPF
[2021-01-05 08:05] LABS: TOTAL PROTEIN 7.1 GM/DL (6.4-8.2)
[2021-01-05 08:07] LABS: BILIRUBIN,TOTAL 1.7 MG/DL (0.1-1.0)
[2021-01-05 08:08] LABS: CREATININE SERUM 1.28 MG/DL (0.60-1.30)
--- NOTE | 2021-01-05 08:18 | Diagnostic Imaging Report ---
Indication: Left flank pain and hematuria TECHNIQUE: Multiple contiguous axial images were obtained through the abdomen and pelvis without the use of intravenous contrast. Auto Exposure Controls were utilized during the CT exam to meet ALARA standards for radiation dose reduction. Comparison made with 04/18/2015 The visualized portions of the lung bases show a small nodular density in the right lower lobe measuring about 6 mm. This appeared similar on the prior study of 04/18/2015 and is therefore likely a benign finding. There is dependent atelectatic change in the lung bases. There is no free intraperitoneal air or fluid. The liver shows no focal lesion without contrast. A small hiatal hernia is present. The spleen is mildly enlarged measuring 15 cm in greatest transverse diameter. The adrenals and pancreas appear unremarkable. The right kidney shows a nonocclusive stone in the midpole is otherwise normal. The left kidney shows some perinephric edema and mild hydronephrosis. No definite stone is visualized at this time. There is no retroperitoneal mass or adenopathy. There is no ascites or abnormal fluid collection. Visualized bowel loops are unremarkable. There is no pelvic mass or lymphadenopathy. IMPRESSION: There is left-sided perinephric edema with mild hydronephrosis and hydroureter. I do not visualize a definite left-sided stone at this time. The possibility of a recently passed stone should be considered. A poorly opaque stone should also be considered. Underlying urothelial lesion is not excluded. Consider a study with contrast if pain persists. There is nonocclusive stone in the right kidney without hydronephrosis. There is a small hiatal hernia. There is a stable 6 mm nodule in the right lower lobe. There is mild splenomegaly. Dictated by: Dictated on workstation # [id number]
[2021-01-05] MEDS ORDERED: morphine INJ 10 MG/ML 1ML (SYR OR VIAL) IVP STA (08:31)
[2021-01-05 08:32] LABS: BAND NEUTROPHILS 0 %; NEUTROPHILS % (MANUAL) 2 %
[2021-01-05 08:33] LABS: ANISOCYTOSIS MODERATE; BASOPHILS % (MANUAL) 0 %; EOSINOPHILS % (MANUAL) 0 %; LYMPHOCYTES % (MANUAL) 98 %; MONOCYTES % (MANUAL) 0 %; SMUDGE CELLS MOD
[2021-01-05] MEDS ORDERED: PROMETHAZINE INJ 25 MG/ML (PHENERGAN) AMP ONE (08:38)
[2021-01-05] MEDS ORDERED: PROMETHAZINE INJ 25 MG/ML (PHENERGAN) AMP IVP ONE (08:45)
[2021-01-05] MEDS ORDERED: ACHYD1T PO (08:51)
[2021-01-05] MEDS ORDERED: ONDA4TAB11 PO (08:51)
[2021-01-05] MEDS ORDERED: CEPH500T PO (08:51)
[2021-01-05 10:11] VITALS: BP 160/84
== END 2021-01-05 10:11 | disposition home or self-care (01) ==
LOC: EDUNIT# 07:14 → ER 07:15
DX: N20.0 Calculus of kidney (principal); I48.91 Unspecified atrial fibrillation; F41.9 Anxiety disorder, unspecified; F32.9 Major depressive disorder, single episode, unspecified; Z79.01 Long term (current) use of anticoagulants; Z79.899 Other long term (current) drug therapy
CPT/HCPCS: 36415; 74176; 80053; 81000; 83690; 85007; 85027

== ENCOUNTER 2021-01-12 12:47 | Outpatient (RCR) | payer MEDICARE, MEDICAID ==
[2020-10-18 14:57] LABS: BASOPHILS # (AUTO) 0.1 10^3/uL (0.0-0.1); BASOPHILS % (AUTO) 0 % (0-10); EOSINOPHILS # (AUTO) 0.1 10^3/uL (0.0-0.3); EOSINOPHILS % (AUTO) 0 % (0-10); HEMATOCRIT 38 % (40-54); HEMOGLOBIN 11.6 g/dL (13.3-17.7); LYMPHOCYTES % (AUTO) 95 % (12-44); MEAN CORPUSCULAR HEMOGLOBIN 33 pg (25-34); MEAN CORPUSCULAR HGB CONC 31 g/dL (32-36); MEAN CORPUSCULAR VOLUME 106 fL (80-99); MEAN PLATELET VOLUME 9.5 fL (9.0-12.2); MONOCYTES # (AUTO) 1.4 10^3/uL (0.0-1.0); MONOCYTES % (AUTO) 1 % (0-12); NEUTROPHILS # (AUTO) 3.2 10^3/uL (1.8-7.8); NEUTROPHILS % (AUTO) 3 % (42-75); PLATELET COUNT 212 10^3/uL (130-400)
[2020-10-18 15:04] LABS: WHITE BLOOD COUNT 105.9 10^3/uL (4.3-11.0)
[2020-10-18 15:26] LABS: BILIRUBIN,TOTAL 0.9 MG/DL (0.1-1.0); CALCIUM 9.8 MG/DL (8.5-10.1); CREATININE SERUM 1.14 MG/DL (0.60-1.30); TOTAL PROTEIN 6.9 GM/DL (6.4-8.2)
[2020-11-15 14:43] LABS: BASOPHILS # (AUTO) 0.2 10^3/uL (0.0-0.1); BASOPHILS % (AUTO) 0 % (0-10); EOSINOPHILS # (AUTO) 0.1 10^3/uL (0.0-0.3); EOSINOPHILS % (AUTO) 0 % (0-10); HEMATOCRIT 37 % (40-54); HEMOGLOBIN 11.2 g/dL (13.3-17.7); LYMPHOCYTES # (AUTO) 105.9 10^3/uL (1.0-4.0); LYMPHOCYTES % (AUTO) 96 % (12-44); MEAN CORPUSCULAR HEMOGLOBIN 33 pg (25-34); MEAN CORPUSCULAR HGB CONC 30 g/dL (32-36); MEAN CORPUSCULAR VOLUME 109 fL (80-99); MEAN PLATELET VOLUME 9.7 fL (9.0-12.2); MONOCYTES % (AUTO) 2 % (0-12); NEUTROPHILS # (AUTO) 2.4 10^3/uL (1.8-7.8); NEUTROPHILS % (AUTO) 2 % (42-75); PLATELET COUNT 158 10^3/uL (130-400)
[2020-11-15 14:54] LABS: WHITE BLOOD COUNT 110.6 10^3/uL (4.3-11.0)
[2020-12-06 15:00] LABS: BASOPHILS # (AUTO) 0.1 10^3/uL (0.0-0.1); BASOPHILS % (AUTO) 0 % (0-10); EOSINOPHILS # (AUTO) 0.1 10^3/uL (0.0-0.3); EOSINOPHILS % (AUTO) 0 % (0-10); HEMATOCRIT 35 % (40-54); HEMOGLOBIN 10.8 g/dL (13.3-17.7); LYMPHOCYTES # (AUTO) 106.2 X 10^3 (1.0-4.0); LYMPHOCYTES % (AUTO) 97 % (12-44); MEAN CORPUSCULAR HEMOGLOBIN 33 pg (25-34); MEAN CORPUSCULAR HGB CONC 31 g/dL (32-36); MEAN CORPUSCULAR VOLUME 108 fL (80-99); MONOCYTES # (AUTO) 0.2 X 10^3 (0.0-1.0); MONOCYTES % (AUTO) 0 % (0-12); NEUTROPHILS # (AUTO) 3.4 X 10^3 (1.8-7.8); NEUTROPHILS % (AUTO) 3 % (42-75); PLATELET COUNT 250 10^3/uL (130-400)
[2020-12-06 15:06] LABS: WHITE BLOOD COUNT 110.1 10^3/uL (4.3-11.0)
[2020-12-06 15:17] LABS: ALBUMIN 3.8 GM/DL (3.2-4.5); BILIRUBIN,TOTAL 1.3 MG/DL (0.1-1.0); CALCIUM 9.2 MG/DL (8.5-10.1); CREATININE SERUM 0.88 MG/DL (0.60-1.30); POTASSIUM 4.8 MMOL/L (3.6-5.0); TOTAL PROTEIN 6.6 GM/DL (6.4-8.2); URIC ACID 2.6 MG/DL (2.6-7.2)
[2020-12-23 14:06] LABS: BASOPHILS % (AUTO) 0 % (0-10); EOSINOPHILS # (AUTO) 0.1 10^3/uL (0.0-0.3); EOSINOPHILS % (AUTO) 0 % (0-10); HEMATOCRIT 40 % (40-54); HEMOGLOBIN 10.8 g/dL (13.3-17.7); LYMPHOCYTES # (AUTO) 269.2 10^3/uL (1.0-4.0); LYMPHOCYTES % (AUTO) 98 % (12-44); MEAN CORPUSCULAR HEMOGLOBIN 30 pg (25-34); MEAN CORPUSCULAR HGB CONC 27 g/dL (32-36); MEAN CORPUSCULAR VOLUME 111 fL (80-99); MEAN PLATELET VOLUME 10.1 fL (9.0-12.2); MONOCYTES # (AUTO) 0.6 10^3/uL (0.0-1.0); MONOCYTES % (AUTO) 0 % (0-12); NEUTROPHILS # (AUTO) 3.4 10^3/uL (1.8-7.8); NEUTROPHILS % (AUTO) 1 % (42-75); PLATELET COUNT 189 10^3/uL (130-400)
[2020-12-23 14:16] LABS: WHITE BLOOD COUNT 273.6 10^3/uL (4.3-11.0)
[2020-12-23 14:26] LABS: CALCIUM 9.2 MG/DL (8.5-10.1); CREATININE SERUM 1.03 MG/DL (0.60-1.30); POTASSIUM 5.7 MMOL/L (3.6-5.0)
[~2021-01-12 12:47] MED LIST changes: +CEPH500T PO; +ONDA4TAB11 PO
[2021-01-12 13:12] LABS: BASOPHILS # (AUTO) 0.1 10^3/uL (0.0-0.1); BASOPHILS % (AUTO) 0 % (0-10); EOSINOPHILS # (AUTO) 0.1 10^3/uL (0.0-0.3); EOSINOPHILS % (AUTO) 0 % (0-10); HEMATOCRIT 37 % (40-54); LYMPHOCYTES # (AUTO) 232.7 10^3/uL (1.0-4.0); LYMPHOCYTES % (AUTO) 98 % (12-44); MEAN CORPUSCULAR HEMOGLOBIN 30 pg (25-34); MEAN CORPUSCULAR HGB CONC 27 g/dL (32-36); MEAN CORPUSCULAR VOLUME 111 fL (80-99); MEAN PLATELET VOLUME 9.6 fL (9.0-12.2); MONOCYTES # (AUTO) 0.4 10^3/uL (0.0-1.0); MONOCYTES % (AUTO) 0 % (0-12); NEUTROPHILS # (AUTO) 4.3 10^3/uL (1.8-7.8); NEUTROPHILS % (AUTO) 2 % (42-75); PLATELET COUNT 304 10^3/uL (130-400)
[2021-01-12 13:23] LABS: WHITE BLOOD COUNT 237.8 10^3/uL (4.3-11.0)
[2021-01-12 13:33] LABS: ALBUMIN 3.9 GM/DL (3.2-4.5); BILIRUBIN,TOTAL 0.9 MG/DL (0.1-1.0); CALCIUM 8.7 MG/DL (8.5-10.1); CREATININE SERUM 1.01 MG/DL (0.60-1.30); TOTAL PROTEIN 6.8 GM/DL (6.4-8.2); URIC ACID 3.5 MG/DL (2.6-7.2)
[2021-01-12 13:44] LABS: POTASSIUM 6.9 MMOL/L (3.6-5.0)
== END 2021-01-16 | disposition home or self-care (01) ==
LOC: ONC 12:47
PROVIDERS: ATTEND Internal Medicine Hematology & Oncology
DX: C91.10 Chronic lymphocytic leukemia of B-cell type not having achieved remission (principal); I48.0 Paroxysmal atrial fibrillation; J44.9 Chronic obstructive pulmonary disease, unspecified; K08.9 Disorder of teeth and supporting structures, unspecified
CPT/HCPCS: 80053; 85025; G0463; 80048; 83615; 84132; 84550; 93005; 99213

== ENCOUNTER → 2021-01-16 | Outpatient (CLI) | payer MEDICARE, MEDICAID ==
--- NOTE | 2021-01-16 15:16 | Diagnostic Imaging Report ---
INDICATION: Nephrolithiasis. EXAMINATION: KUB at 2:32 PM. FINDINGS: There is scoliosis of the lumbar spine, convex to the right. The bowel gas pattern is normal. There are no appreciable calculi but there is some stool obscuring portions of the kidneys. IMPRESSION: Unremarkable KUB. Dictated by: Dictated on workstation # [id number]
== END ==
LOC: RAD 14:01
PROVIDERS: ATTEND Urology
DX: N20.2 Calculus of kidney with calculus of ureter (principal)
CPT/HCPCS: 74018

== ENCOUNTER → 2021-02-07 | Outpatient (CLI) | payer MEDICARE, MEDICAID ==
[~2021-02-07] MED LIST changes: -AMIO200T6 PO; +AMIO200T65 PO
--- NOTE | 2021-02-07 16:17 | Diagnostic Imaging Report ---
PROCEDURE: CT abdomen and pelvis without contrast. TECHNIQUE: Multiple contiguous axial images were obtained through the abdomen and pelvis without the use of intravenous contrast. Auto Exposure Controls were utilized during the CT exam to meet ALARA standards for radiation dose reduction. INDICATION: Prostate cancer. History of leukemia. COMPARISON: 01/05/2021. FINDINGS: The heart is prominent. Mildly prominent lymph nodes are seen in the visualized posterior mediastinum. A nodule is seen in the right lung base measuring 0.6 cm. There are hazy bibasilar opacities, similar to the prior exam. The liver is hyperdense. No focal hepatic lesions are identified. The gallbladder is unremarkable. Splenomegaly is noted. Interval resolution of the previously noted left-sided perinephric inflammatory changes. A stable nonobstructing calculus is seen in the mid right kidney. No obstructing calculi or hydronephrosis. The urinary bladder is nondistended. The prostate is prominent measuring 5.6 cm in transverse diameter. The pancreas, adrenal glands, and kidneys have a normal appearance. There is no pathologically enlarged mesenteric or retroperitoneal adenopathy. The bowel loops are nondilated. The appendix is visualized in the right lower quadrant and has a normal appearance. There is no free fluid or free air. No acute osseous abnormalities. There is scattered calcified aortic and iliac atherosclerotic plaque without aneurysm. Mildly prominent bilateral inguinal lymph nodes are seen, similar to the prior exam. IMPRESSION: 1. Interval resolution of the perinephric fat stranding on the left. No evidence of obstructing calculi or hydronephrosis. Stable nonobstructing calculus in the mid right kidney. 2. Hyperdense liver relative to the spleen. This can be seen with Ajay's disease, hemachromatosis/hemosiderosis, amiodarone toxicity, and glycogen storage diseases. Recommend correlation with patient history and LFTs. 3. Mildly prominent lymph nodes in the posterior mediastinum and bilateral inguinal regions. No pathologically enlarged lymphadenopathy. 4. Stable nodule in the right lung base with stable hazy opacities in the lung bases. 5. Mild cardiomegaly. 6. Prostatomegaly. Dictated by: Dictated on workstation # [id number]
--- NOTE | 2021-02-07 16:48 | Diagnostic Imaging Report ---
INDICATION: Prostate CA. COMPARISON: Comparison with previous CT scan of 02/07/2021. FINDINGS: 24 mCi Tc-99m MDP was given IV. Three-hour delayed whole body imaging was obtained. There is good uptake throughout the skeletal system. There is a single focus of increased uptake within the region of the posterior right seventh rib. No other abnormal areas of uptake are demonstrated. IMPRESSION: Single focus of increased uptake in the region of the posterior right seventh rib. This would be unusual metastatic finding. Would recommend right rib films. Dictated by: Dictated on workstation # [id number]
== END ==
LOC: CARD 12:00
PROVIDERS: ATTEND Urology
DX: C61 Malignant neoplasm of prostate (principal); N20.0 Calculus of kidney; I51.7 Cardiomegaly; K76.89 Other specified diseases of liver; R91.8 Other nonspecific abnormal finding of lung field; R91.1 Solitary pulmonary nodule
CPT/HCPCS: 74176; 78306; A9503

== ENCOUNTER 2021-02-13 13:26 | Outpatient (RCR) | payer MEDICARE, MEDICAID ==
[2021-02-13 13:33] LABS: BASOPHILS # (AUTO) 0.1 10^3/uL (0.0-0.1); BASOPHILS % (AUTO) 0 % (0-10); EOSINOPHILS # (AUTO) 0.1 10^3/uL (0.0-0.3); EOSINOPHILS % (AUTO) 0 % (0-10); HEMATOCRIT 38 % (40-54); HEMOGLOBIN 11.7 g/dL (13.3-17.7); LYMPHOCYTES # (AUTO) 102.9 10^3/uL (1.0-4.0); LYMPHOCYTES % (AUTO) 96 % (12-44); MEAN CORPUSCULAR HEMOGLOBIN 33 pg (25-34); MEAN CORPUSCULAR HGB CONC 31 g/dL (32-36); MEAN CORPUSCULAR VOLUME 107 fL (80-99); MEAN PLATELET VOLUME 9.3 fL (9.0-12.2); MONOCYTES % (AUTO) 1 % (0-12); NEUTROPHILS # (AUTO) 3.1 10^3/uL (1.8-7.8); NEUTROPHILS % (AUTO) 3 % (42-75); PLATELET COUNT 193 10^3/uL (130-400)
[2021-02-13 13:43] LABS: WHITE BLOOD COUNT 107.3 10^3/uL (4.3-11.0)
[2021-02-13 13:52] LABS: ALBUMIN 4.1 GM/DL (3.2-4.5); BILIRUBIN,TOTAL 1.4 MG/DL (0.1-1.0); CALCIUM 8.9 MG/DL (8.5-10.1); CREATININE SERUM 1.11 MG/DL (0.60-1.30); TOTAL PROTEIN 6.7 GM/DL (6.4-8.2)
== END 2021-03-10 | disposition home or self-care (01) ==
LOC: ONC 13:26
PROVIDERS: ATTEND Internal Medicine Hematology & Oncology
DX: C91.10 Chronic lymphocytic leukemia of B-cell type not having achieved remission (principal); I48.0 Paroxysmal atrial fibrillation; J44.9 Chronic obstructive pulmonary disease, unspecified; K08.9 Disorder of teeth and supporting structures, unspecified
CPT/HCPCS: 80053; 85025; G0463; 99213

== ENCOUNTER 2021-04-18 13:06 | Outpatient (RCR) | payer MEDICARE, MEDICAID ==
[2021-04-18 13:22] LABS: BASOPHILS # (AUTO) 0.2 10^3/uL (0.0-0.1); BASOPHILS % (AUTO) 0 % (0-10); EOSINOPHILS # (AUTO) 0.1 10^3/uL (0.0-0.3); EOSINOPHILS % (AUTO) 0 % (0-10); HEMATOCRIT 37 % (40-54); HEMOGLOBIN 11.3 g/dL (13.3-17.7); LYMPHOCYTES # (AUTO) 117.6 10^3/uL (1.0-4.0); LYMPHOCYTES % (AUTO) 97 % (12-44); MEAN CORPUSCULAR HEMOGLOBIN 32 pg (25-34); MEAN CORPUSCULAR HGB CONC 30 g/dL (32-36); MEAN CORPUSCULAR VOLUME 105 fL (80-99); MEAN PLATELET VOLUME 9.6 fL (9.0-12.2); MONOCYTES % (AUTO) 1 % (0-12); NEUTROPHILS # (AUTO) 2.4 10^3/uL (1.8-7.8); NEUTROPHILS % (AUTO) 2 % (42-75); PLATELET COUNT 161 10^3/uL (130-400)
[2021-04-18 13:26] LABS: WHITE BLOOD COUNT 121.4 10^3/uL (4.3-11.0)
[2021-04-18 13:46] LABS: ALBUMIN 4.1 GM/DL (3.2-4.5); BILIRUBIN,TOTAL 1.2 MG/DL (0.1-1.0); CALCIUM 8.7 MG/DL (8.5-10.1); CREATININE SERUM 1.09 MG/DL (0.60-1.30); POTASSIUM 5.6 MMOL/L (3.6-5.0); TOTAL PROTEIN 6.8 GM/DL (6.4-8.2)
== END 2021-05-08 | disposition home or self-care (01) ==
LOC: ONC 13:06
PROVIDERS: ATTEND Internal Medicine Hematology & Oncology
DX: C91.10 Chronic lymphocytic leukemia of B-cell type not having achieved remission (principal); I48.0 Paroxysmal atrial fibrillation; J44.9 Chronic obstructive pulmonary disease, unspecified; K08.9 Disorder of teeth and supporting structures, unspecified
CPT/HCPCS: 80053; 85025; G0463; 36415; 99213

== ENCOUNTER 2021-06-02 13:37 | Outpatient (RCR) | payer MEDICARE, MEDICAID ==
[2021-05-11 13:14] LABS: BASOPHILS # (AUTO) 0.1 10^3/uL (0.0-0.1); BASOPHILS % (AUTO) 0 % (0-10); EOSINOPHILS # (AUTO) 0.1 10^3/uL (0.0-0.3); EOSINOPHILS % (AUTO) 0 % (0-10); HEMATOCRIT 36 % (40-54); HEMOGLOBIN 10.9 g/dL (13.3-17.7); LYMPHOCYTES # (AUTO) 128.4 10^3/uL (1.0-4.0); LYMPHOCYTES % (AUTO) 96 % (12-44); MEAN CORPUSCULAR HEMOGLOBIN 32 pg (25-34); MEAN CORPUSCULAR HGB CONC 30 g/dL (32-36); MEAN CORPUSCULAR VOLUME 107 fL (80-99); MEAN PLATELET VOLUME 9.5 fL (9.0-12.2); MONOCYTES # (AUTO) 1.2 10^3/uL (0.0-1.0); MONOCYTES % (AUTO) 1 % (0-12); NEUTROPHILS # (AUTO) 3.8 10^3/uL (1.8-7.8); NEUTROPHILS % (AUTO) 3 % (42-75); PLATELET COUNT 209 10^3/uL (130-400)
[2021-05-11 13:19] LABS: WHITE BLOOD COUNT 133.7 10^3/uL (4.3-11.0)
[2021-05-11 13:34] LABS: BILIRUBIN,TOTAL 1.1 MG/DL (0.1-1.0); CALCIUM 8.8 MG/DL (8.5-10.1); CREATININE SERUM 1.03 MG/DL (0.60-1.30); TOTAL PROTEIN 6.4 GM/DL (6.4-8.2); URIC ACID 3.1 MG/DL (2.6-7.2)
[2021-06-02 13:47] LABS: BASOPHILS % (AUTO) 0 % (0-10); EOSINOPHILS % (AUTO) 0 % (0-10); LYMPHOCYTES % (AUTO) 99 % (12-44); MONOCYTES % (AUTO) 0 % (0-12); NEUTROPHILS % (AUTO) 1 % (42-75)
[2021-06-02 13:49] LABS: BASOPHILS # (AUTO) 0.1 10^3/uL (0.0-0.1); HEMATOCRIT 42 % (40-54); LYMPHOCYTES # (AUTO) 338.9 10^3/uL (1.0-4.0); MEAN CORPUSCULAR HEMOGLOBIN 29 pg (25-34); MEAN CORPUSCULAR HGB CONC 26 g/dL (32-36); MEAN CORPUSCULAR VOLUME 110 fL (80-99); MEAN PLATELET VOLUME 10.6 fL (9.0-12.2); MONOCYTES # (AUTO) 0.5 10^3/uL (0.0-1.0); NEUTROPHILS # (AUTO) 4.1 10^3/uL (1.8-7.8); PLATELET COUNT 235 10^3/uL (130-400)
[2021-06-02 14:00] LABS: WHITE BLOOD COUNT 343.8 10^3/uL (4.3-11.0)
[2021-06-02 14:06] LABS: ALBUMIN 4.3 GM/DL (3.2-4.5); BILIRUBIN,TOTAL 1.8 MG/DL (0.1-1.0); CALCIUM 9.3 MG/DL (8.5-10.1); CREATININE SERUM 0.89 MG/DL (0.60-1.30); TOTAL PROTEIN 6.8 GM/DL (6.4-8.2)
[2021-06-02 14:23] LABS: POTASSIUM 6.9 MMOL/L (3.6-5.0)
== END 2021-06-08 | disposition home or self-care (01) ==
LOC: ONC 13:37
PROVIDERS: ATTEND Internal Medicine Hematology & Oncology
DX: Z45.2 Encounter for adjustment and management of vascular access device (principal); C91.10 Chronic lymphocytic leukemia of B-cell type not having achieved remission; I48.0 Paroxysmal atrial fibrillation; J44.9 Chronic obstructive pulmonary disease, unspecified; K08.9 Disorder of teeth and supporting structures, unspecified
CPT/HCPCS: 80053; 84550; 85025; G0463; 36415; 99213

== ENCOUNTER 2021-06-30 12:55 | Outpatient (RCR) | payer MEDICARE, MEDICAID ==
[2021-06-30 13:03] LABS: BASOPHILS # (AUTO) 0.1 10^3/uL (0.0-0.1); BASOPHILS % (AUTO) 0 % (0-10); EOSINOPHILS % (AUTO) 0 % (0-10); NEUTROPHILS % (AUTO) 1 % (42-75)
[2021-06-30 13:05] LABS: EOSINOPHILS # (AUTO) 0.1 10^3/uL (0.0-0.3); HEMATOCRIT 40 % (40-54); HEMOGLOBIN 10.5 g/dL (13.3-17.7); LYMPHOCYTES # (AUTO) 326.5 10^3/uL (1.0-4.0); LYMPHOCYTES % (AUTO) 98 % (12-44); MEAN CORPUSCULAR HEMOGLOBIN 29 pg (25-34); MEAN CORPUSCULAR HGB CONC 27 g/dL (32-36); MEAN CORPUSCULAR VOLUME 109 fL (80-99); MEAN PLATELET VOLUME 11.2 fL (9.0-12.2); MONOCYTES # (AUTO) 0.6 10^3/uL (0.0-1.0); MONOCYTES % (AUTO) 0 % (0-12); NEUTROPHILS # (AUTO) 4.4 10^3/uL (1.8-7.8); PLATELET COUNT 194 10^3/uL (130-400)
[2021-06-30 13:24] LABS: ALBUMIN 3.8 GM/DL (3.2-4.5); CALCIUM 8.7 MG/DL (8.5-10.1); CREATININE SERUM 1.08 MG/DL (0.60-1.30); POTASSIUM 6.3 MMOL/L (3.6-5.0); TOTAL PROTEIN 6.1 GM/DL (6.4-8.2)
== END 2021-07-08 | disposition home or self-care (01) ==
LOC: ONC 12:55
PROVIDERS: ATTEND Internal Medicine Hematology & Oncology
DX: C91.10 Chronic lymphocytic leukemia of B-cell type not having achieved remission (principal); C61 Malignant neoplasm of prostate; K08.9 Disorder of teeth and supporting structures, unspecified; I48.91 Unspecified atrial fibrillation; N20.0 Calculus of kidney; K76.0 Fatty (change of) liver, not elsewhere classified; Z79.899 Other long term (current) drug therapy
CPT/HCPCS: 36415; 80053; 85025

== ENCOUNTER 2021-07-13 13:51 | Outpatient (RCR) | payer MEDICARE, MEDICAID ==
[2021-07-13 14:08] LABS: BASOPHILS # (AUTO) 0.1 10^3/uL (0.0-0.1); BASOPHILS % (AUTO) 0 % (0-10); EOSINOPHILS # (AUTO) 0.1 10^3/uL (0.0-0.3); EOSINOPHILS % (AUTO) 0 % (0-10); HEMATOCRIT 42 % (40-54); HEMOGLOBIN 11.3 g/dL (13.3-17.7); LYMPHOCYTES # (AUTO) 320.1 10^3/uL (1.0-4.0); LYMPHOCYTES % (AUTO) 98 % (12-44); MEAN CORPUSCULAR HEMOGLOBIN 29 pg (25-34); MEAN CORPUSCULAR HGB CONC 27 g/dL (32-36); MEAN CORPUSCULAR VOLUME 106 fL (80-99); MEAN PLATELET VOLUME 11.5 fL (9.0-12.2); MONOCYTES # (AUTO) 0.5 10^3/uL (0.0-1.0); MONOCYTES % (AUTO) 0 % (0-12); NEUTROPHILS # (AUTO) 4.2 10^3/uL (1.8-7.8); NEUTROPHILS % (AUTO) 1 % (42-75); PLATELET COUNT 200 10^3/uL (130-400)
[2021-07-13 14:13] LABS: WHITE BLOOD COUNT 325.3 10^3/uL (4.3-11.0)
[2021-07-13 14:32] LABS: ALBUMIN 4.1 GM/DL (3.2-4.5); BILIRUBIN,TOTAL 1.2 MG/DL (0.1-1.0); CALCIUM 8.7 MG/DL (8.5-10.1); POTASSIUM 5.1 MMOL/L (3.6-5.0); TOTAL PROTEIN 6.6 GM/DL (6.4-8.2)
[2021-08-10 14:30] LABS: BASOPHILS # (AUTO) 0.1 10^3/uL (0.0-0.1); BASOPHILS % (AUTO) 0 % (0-10); EOSINOPHILS # (AUTO) 0.2 10^3/uL (0.0-0.3); EOSINOPHILS % (AUTO) 0 % (0-10); HEMATOCRIT 44 % (40-54); HEMOGLOBIN 12.8 g/dL (13.3-17.7); LYMPHOCYTES # (AUTO) 248.2 10^3/uL (1.0-4.0); LYMPHOCYTES % (AUTO) 97 % (12-44); MEAN CORPUSCULAR HEMOGLOBIN 29 pg (25-34); MEAN CORPUSCULAR HGB CONC 29 g/dL (32-36); MEAN CORPUSCULAR VOLUME 100 fL (80-99); MEAN PLATELET VOLUME 11.3 fL (9.0-12.2); MONOCYTES # (AUTO) 0.6 10^3/uL (0.0-1.0); MONOCYTES % (AUTO) 0 % (0-12); NEUTROPHILS # (AUTO) 5.6 10^3/uL (1.8-7.8); NEUTROPHILS % (AUTO) 2 % (42-75); PLATELET COUNT 201 10^3/uL (130-400)
[2021-08-10 14:33] LABS: WHITE BLOOD COUNT 254.9 10^3/uL (4.3-11.0)
== END 2021-08-08 | disposition home or self-care (01) ==
LOC: ONC 13:51
PROVIDERS: ATTEND Internal Medicine Hematology & Oncology
DX: C91.10 Chronic lymphocytic leukemia of B-cell type not having achieved remission (principal); C61 Malignant neoplasm of prostate; K08.9 Disorder of teeth and supporting structures, unspecified; N20.0 Calculus of kidney; K76.0 Fatty (change of) liver, not elsewhere classified; J44.9 Chronic obstructive pulmonary disease, unspecified; I48.0 Paroxysmal atrial fibrillation; Z79.899 Other long term (current) drug therapy
CPT/HCPCS: 80053; 85025; G0463; 36415; 99213

== ENCOUNTER 2021-08-10 13:59 | Outpatient (RCR) | payer MEDICARE, MEDICAID ==
[2021-08-10 14:30] LABS: BASOPHILS # (AUTO) 0.1 10^3/uL (0.0-0.1); BASOPHILS % (AUTO) 0 % (0-10); EOSINOPHILS # (AUTO) 0.2 10^3/uL (0.0-0.3); EOSINOPHILS % (AUTO) 0 % (0-10); HEMATOCRIT 44 % (40-54); HEMOGLOBIN 12.8 g/dL (13.3-17.7); LYMPHOCYTES # (AUTO) 248.2 10^3/uL (1.0-4.0); LYMPHOCYTES % (AUTO) 97 % (12-44); MEAN CORPUSCULAR HEMOGLOBIN 29 pg (25-34); MEAN CORPUSCULAR HGB CONC 29 g/dL (32-36); MEAN CORPUSCULAR VOLUME 100 fL (80-99); MEAN PLATELET VOLUME 11.3 fL (9.0-12.2); MONOCYTES # (AUTO) 0.6 10^3/uL (0.0-1.0); MONOCYTES % (AUTO) 0 % (0-12); NEUTROPHILS # (AUTO) 5.6 10^3/uL (1.8-7.8); NEUTROPHILS % (AUTO) 2 % (42-75); PLATELET COUNT 201 10^3/uL (130-400)
[2021-08-10 14:33] LABS: WHITE BLOOD COUNT 254.9 10^3/uL (4.3-11.0)
== END 2021-09-07 | disposition home or self-care (01) ==
LOC: ONC 13:59
PROVIDERS: ATTEND Internal Medicine Hematology & Oncology
DX: C91.10 Chronic lymphocytic leukemia of B-cell type not having achieved remission (principal); C61 Malignant neoplasm of prostate; K08.9 Disorder of teeth and supporting structures, unspecified; N20.0 Calculus of kidney; K76.0 Fatty (change of) liver, not elsewhere classified; J44.9 Chronic obstructive pulmonary disease, unspecified; I48.0 Paroxysmal atrial fibrillation; Z79.899 Other long term (current) drug therapy
CPT/HCPCS: 85025; G0463; 36415; 99213

== ENCOUNTER 2021-09-08 09:37 | Outpatient (RCR) | payer MEDICARE, MEDICAID ==
[2021-09-08 09:46] LABS: BASOPHILS % (AUTO) 0 % (0-10); EOSINOPHILS % (AUTO) 0 % (0-10); HEMATOCRIT 43 % (40-54); HEMOGLOBIN 12.2 g/dL (13.3-17.7); LYMPHOCYTES # (AUTO) 220.3 10^3/uL (1.0-4.0); LYMPHOCYTES % (AUTO) 95 % (12-44); MEAN CORPUSCULAR HEMOGLOBIN 28 pg (25-34); MEAN CORPUSCULAR HGB CONC 29 g/dL (32-36); MEAN CORPUSCULAR VOLUME 96 fL (80-99); MEAN PLATELET VOLUME 11.7 fL (9.0-12.2); MONOCYTES # (AUTO) 0.4 10^3/uL (0.0-1.0); MONOCYTES % (AUTO) 0 % (0-12); NEUTROPHILS # (AUTO) 9.8 10^3/uL (1.8-7.8); NEUTROPHILS % (AUTO) 4 % (42-75); PLATELET COUNT 191 10^3/uL (130-400)
[2021-09-08 09:51] LABS: WHITE BLOOD COUNT 231.4 10^3/uL (4.3-11.0)
[2021-09-08 10:17] LABS: ALBUMIN 4.2 GM/DL (3.2-4.5); BILIRUBIN,TOTAL 1.7 MG/DL (0.1-1.0); CALCIUM 9.5 MG/DL (8.5-10.1); CREATININE SERUM 1.13 MG/DL (0.60-1.30); POTASSIUM 5.3 MMOL/L (3.6-5.0); TOTAL PROTEIN 6.6 GM/DL (6.4-8.2)
== END 2021-09-29 10:36 | disposition home or self-care (01) ==
LOC: ONC 09:37
PROVIDERS: ATTEND Internal Medicine Hematology & Oncology
DX: C91.10 Chronic lymphocytic leukemia of B-cell type not having achieved remission (principal); J44.9 Chronic obstructive pulmonary disease, unspecified; I48.0 Paroxysmal atrial fibrillation; K76.0 Fatty (change of) liver, not elsewhere classified; Z79.899 Other long term (current) drug therapy; Z87.442 Personal history of urinary calculi
CPT/HCPCS: 80053; 85025; G0463; 36415; 99213

== ENCOUNTER 2021-10-11 12:57 | Outpatient (RCR) | payer MEDICARE, MEDICAID ==
[2021-10-11 13:10] LABS: BASOPHILS # (AUTO) 0.1 10^3/uL (0.0-0.1); BASOPHILS % (AUTO) 0 % (0-10); EOSINOPHILS # (AUTO) 0.1 10^3/uL (0.0-0.3); EOSINOPHILS % (AUTO) 0 % (0-10); HEMATOCRIT 43 % (40-54); HEMOGLOBIN 13.1 g/dL (13.3-17.7); LYMPHOCYTES # (AUTO) 135.9 10^3/uL (1.0-4.0); LYMPHOCYTES % (AUTO) 97 % (12-44); MEAN CORPUSCULAR HEMOGLOBIN 29 pg (25-34); MEAN CORPUSCULAR HGB CONC 31 g/dL (32-36); MEAN CORPUSCULAR VOLUME 94 fL (80-99); MEAN PLATELET VOLUME 11.7 fL (9.0-12.2); MONOCYTES # (AUTO) 0.7 10^3/uL (0.0-1.0); MONOCYTES % (AUTO) 1 % (0-12); NEUTROPHILS # (AUTO) 2.4 10^3/uL (1.8-7.8); NEUTROPHILS % (AUTO) 2 % (42-75); PLATELET COUNT 212 10^3/uL (130-400)
[2021-10-11 13:17] LABS: WHITE BLOOD COUNT 139.6 10^3/uL (4.3-11.0)
[2021-10-11 13:30] LABS: BILIRUBIN,TOTAL 1.8 MG/DL (0.1-1.0); CALCIUM 9.1 MG/DL (8.5-10.1); CREATININE SERUM 1.01 MG/DL (0.60-1.30); POTASSIUM 5.1 MMOL/L (3.6-5.0)
[2021-10-11 13:31] LABS: TOTAL PROTEIN 6.5 GM/DL (6.4-8.2)
== END 2021-11-08 | disposition home or self-care (01) ==
LOC: ONC 12:57
PROVIDERS: ATTEND Internal Medicine Hematology & Oncology
DX: C91.10 Chronic lymphocytic leukemia of B-cell type not having achieved remission (principal); N20.0 Calculus of kidney; K76.0 Fatty (change of) liver, not elsewhere classified; J44.9 Chronic obstructive pulmonary disease, unspecified; Z79.899 Other long term (current) drug therapy
CPT/HCPCS: 80053; 85025; G0463; 36415; 99213

== ENCOUNTER 2021-11-29 14:14 | Outpatient (RCR) | payer MEDICARE, MEDICAID ==
[2021-11-29 14:50] LABS: BASOPHILS # (AUTO) 0.1 10^3/uL (0.0-0.1); BASOPHILS % (AUTO) 0 % (0-10); EOSINOPHILS # (AUTO) 0.1 10^3/uL (0.0-0.3); EOSINOPHILS % (AUTO) 0 % (0-10); HEMATOCRIT 44 % (40-54); HEMOGLOBIN 13.5 g/dL (13.3-17.7); LYMPHOCYTES # (AUTO) 98.3 10^3/uL (1.0-4.0); LYMPHOCYTES % (AUTO) 94 % (12-44); MEAN CORPUSCULAR HEMOGLOBIN 29 pg (25-34); MEAN CORPUSCULAR HGB CONC 31 g/dL (32-36); MEAN CORPUSCULAR VOLUME 93 fL (80-99); MEAN PLATELET VOLUME 11.9 fL (9.0-12.2); MONOCYTES # (AUTO) 0.6 10^3/uL (0.0-1.0); MONOCYTES % (AUTO) 1 % (0-12); NEUTROPHILS # (AUTO) 5.9 10^3/uL (1.8-7.8); NEUTROPHILS % (AUTO) 6 % (42-75); PLATELET COUNT 187 10^3/uL (130-400)
[2021-11-29 14:52] LABS: WHITE BLOOD COUNT 105.1 10^3/uL (4.3-11.0)
[2021-11-29 15:13] LABS: BILIRUBIN,TOTAL 1.8 MG/DL (0.1-1.0); CALCIUM 9.1 MG/DL (8.5-10.1); CREATININE SERUM 1.12 MG/DL (0.60-1.30); POTASSIUM 4.1 MMOL/L (3.6-5.0); TOTAL PROTEIN 6.1 GM/DL (6.4-8.2)
== END 2021-12-08 | disposition home or self-care (01) ==
LOC: ONC 14:14
PROVIDERS: ATTEND Internal Medicine Hematology & Oncology
DX: C91.10 Chronic lymphocytic leukemia of B-cell type not having achieved remission (principal); N20.0 Calculus of kidney; K76.0 Fatty (change of) liver, not elsewhere classified; J44.9 Chronic obstructive pulmonary disease, unspecified; I48.0 Paroxysmal atrial fibrillation; Z79.899 Other long term (current) drug therapy
CPT/HCPCS: 80053; 85025; G0463; 36415; 99213

== ENCOUNTER 2022-01-01 12:45 | Outpatient (RCR) | payer MEDICARE, MEDICAID ==
[2022-01-01 13:20] LABS: BASOPHILS # (AUTO) 0.1 10^3/uL (0.0-0.1); BASOPHILS % (AUTO) 0 % (0-10); EOSINOPHILS # (AUTO) 0.1 10^3/uL (0.0-0.3); EOSINOPHILS % (AUTO) 0 % (0-10); HEMATOCRIT 44 % (40-54); HEMOGLOBIN 13.7 g/dL (13.3-17.7); LYMPHOCYTES # (AUTO) 88.2 10^3/uL (1.0-4.0); LYMPHOCYTES % (AUTO) 94 % (12-44); MEAN CORPUSCULAR HEMOGLOBIN 29 pg (25-34); MEAN CORPUSCULAR HGB CONC 31 g/dL (32-36); MEAN CORPUSCULAR VOLUME 93 fL (80-99); MONOCYTES # (AUTO) 0.6 10^3/uL (0.0-1.0); MONOCYTES % (AUTO) 1 % (0-12); NEUTROPHILS # (AUTO) 5.3 10^3/uL (1.8-7.8); NEUTROPHILS % (AUTO) 6 % (42-75); PLATELET COUNT 186 10^3/uL (130-400)
[2022-01-01 13:32] LABS: WHITE BLOOD COUNT 94.4 10^3/uL (4.3-11.0)
[2022-01-01 13:33] LABS: ALBUMIN 4.1 GM/DL (3.2-4.5); POTASSIUM 4.6 MMOL/L (3.6-5.0)
[2022-01-01 13:35] LABS: CALCIUM 8.7 MG/DL (8.5-10.1)
[2022-01-01 13:36] LABS: TOTAL PROTEIN 6.7 GM/DL (6.4-8.2)
[2022-01-01 13:38] LABS: BILIRUBIN,TOTAL 1.4 MG/DL (0.1-1.0)
[2022-01-01 13:39] LABS: CREATININE SERUM 0.9 MG/DL (0.60-1.30)
== END 2022-01-08 | disposition home or self-care (01) ==
LOC: ONC 12:45
PROVIDERS: ATTEND Internal Medicine Hematology & Oncology
DX: C91.10 Chronic lymphocytic leukemia of B-cell type not having achieved remission (principal); I48.91 Unspecified atrial fibrillation; Z79.899 Other long term (current) drug therapy
CPT/HCPCS: 80053; 85025; G0463; 36415; 99213

== ENCOUNTER 2022-01-29 13:57 | Outpatient (RCR) | payer MEDICARE, MEDICAID ==
[2022-01-29 14:38] LABS: BASOPHILS # (AUTO) 0.1 10^3/uL (0.0-0.1); BASOPHILS % (AUTO) 0 % (0-10); EOSINOPHILS # (AUTO) 0.1 10^3/uL (0.0-0.3); EOSINOPHILS % (AUTO) 0 % (0-10); HEMATOCRIT 44 % (40-54); LYMPHOCYTES # (AUTO) 77.2 10^3/uL (1.0-4.0); LYMPHOCYTES % (AUTO) 92 % (12-44); MEAN CORPUSCULAR HEMOGLOBIN 29 pg (25-34); MEAN CORPUSCULAR HGB CONC 32 g/dL (32-36); MEAN CORPUSCULAR VOLUME 93 fL (80-99); MEAN PLATELET VOLUME 11.7 fL (9.0-12.2); MONOCYTES # (AUTO) 0.6 10^3/uL (0.0-1.0); MONOCYTES % (AUTO) 1 % (0-12); NEUTROPHILS # (AUTO) 5.7 10^3/uL (1.8-7.8); NEUTROPHILS % (AUTO) 7 % (42-75); PLATELET COUNT 166 10^3/uL (130-400)
[2022-01-29 14:40] LABS: WHITE BLOOD COUNT 83.8 10^3/uL (4.3-11.0)
[2022-01-29 15:00] LABS: ALBUMIN 4.1 GM/DL (3.2-4.5); BILIRUBIN,TOTAL 0.9 MG/DL (0.1-1.0); CREATININE SERUM 1.14 MG/DL (0.60-1.30); POTASSIUM 4.6 MMOL/L (3.6-5.0); TOTAL PROTEIN 6.7 GM/DL (6.4-8.2)
== END 2022-02-07 | disposition home or self-care (01) ==
LOC: ONC 13:57
PROVIDERS: ATTEND Internal Medicine Hematology & Oncology
DX: C91.10 Chronic lymphocytic leukemia of B-cell type not having achieved remission (principal); R73.9 Hyperglycemia, unspecified; K76.0 Fatty (change of) liver, not elsewhere classified; J44.9 Chronic obstructive pulmonary disease, unspecified; I48.0 Paroxysmal atrial fibrillation; Z79.899 Other long term (current) drug therapy
CPT/HCPCS: 80053; 84443; 85025; G0463; 36415; 99213

== ENCOUNTER → 2022-02-14 | Outpatient (CLI) | payer MEDICARE, MEDICAID ==
[~2022-02-14] VITALS: Ht 177 cm; Wt 79.0 kg
[~2022-02-14] MED LIST changes: +CATHETER FLUSH 10 ML SYR IVP PRN; +REGADENOSON 0.4 MG/5 ML SYR (LEXISCAN) IV ONE
[2022-02-14 12:50] VITALS: BP 161/91
--- NOTE | 2022-02-14 17:00 | Cardiology Stress Test Report ---
Stress Test Report Date of Procedure/Referring: Date of Procedure: Feb 14, 2022 PCP Jack Lemos DO Admitting Physician Admitting Physician: Attending Physician: Jasmina Morris MD Baseline Heart Rate: 93 Baseline Blood Pressure: Blood Pressure Systolic: 161 Blood Pressure Diastolic: 91 Baseline Vitals Vital Signs Date Time Temp Pulse Resp B/P (MAP) Pulse Ox O2 Delivery O2 Flow Rate FiO2 02/14/22 12:50 83 161/91 (114) Baseline EKG: Baseline EKG: a fib Summary After explaining the procedure to the patient, he signed a consent and then brought to the stress nuclear laboratory. Patient received 0.4 mg Lexiscan for stress test, ECG, heart rate and blood pressure were monitored continuously. Resting and stress dose of radio tracer were injected, imaging was acquired and reviewed in short axis, horizontal long axis and vertical long axis views. TID: 1.11 SSS: 2 SDS: 1 EF: 58 1. Patient tolerated Lexiscan well 2. Baseline atrial fibrillation with right bundle branch block persisted during test 3. Diaphragmatic attenuation with fixed defect involving the inferior apical segment, no significant ischemia or infarction on SPECT images 4. Normal left ventricular size, ejection fraction 58% JASMINA MORRIS MD Feb 14, 2022 17:00
== END ==
LOC: CARD 10:04
PROVIDERS: ATTEND Internal Medicine Cardiovascular Disease
DX: I25.10 Atherosclerotic heart disease of native coronary artery without angina pectoris (principal); I10 Essential (primary) hypertension
CPT/HCPCS: 78452; 93017; 93306

== ENCOUNTER 2022-04-02 12:56 | Outpatient (RCR) | payer MEDICARE, MEDICAID ==
[~2022-04-02 12:56] MED LIST changes: -CATHETER FLUSH 10 ML SYR IVP PRN; -REGADENOSON 0.4 MG/5 ML SYR (LEXISCAN) IV ONE
[2022-04-02 13:13] LABS: BASOPHILS % (AUTO) 0 % (0-10); EOSINOPHILS # (AUTO) 0.1 10^3/uL (0.0-0.3); EOSINOPHILS % (AUTO) 0 % (0-10); HEMATOCRIT 46 % (40-54); HEMOGLOBIN 14.6 g/dL (13.3-17.7); LYMPHOCYTES # (AUTO) 35.2 10^3/uL (1.0-4.0); LYMPHOCYTES % (AUTO) 96 % (12-44); MEAN CORPUSCULAR HEMOGLOBIN 30 pg (25-34); MEAN CORPUSCULAR HGB CONC 32 g/dL (32-36); MEAN CORPUSCULAR VOLUME 94 fL (80-99); MEAN PLATELET VOLUME 11.7 fL (9.0-12.2); MONOCYTES # (AUTO) 0.7 10^3/uL (0.0-1.0); MONOCYTES % (AUTO) 2 % (0-12); NEUTROPHILS # (AUTO) 0.6 10^3/uL (1.8-7.8); NEUTROPHILS % (AUTO) 2 % (42-75); PLATELET COUNT 185 10^3/uL (130-400)
[2022-04-02 13:18] LABS: WHITE BLOOD COUNT 36.7 10^3/uL (4.3-11.0)
[2022-04-02 13:29] LABS: ALBUMIN 4.1 GM/DL (3.2-4.5); BILIRUBIN,TOTAL 1.4 MG/DL (0.1-1.0); CREATININE SERUM 0.87 MG/DL (0.60-1.30); POTASSIUM 4.2 MMOL/L (3.6-5.0); TOTAL PROTEIN 6.6 GM/DL (6.4-8.2)
== END 2022-04-10 | disposition home or self-care (01) ==
LOC: ONC 12:56
PROVIDERS: ATTEND Internal Medicine Hematology & Oncology
DX: C91.10 Chronic lymphocytic leukemia of B-cell type not having achieved remission (principal); I48.91 Unspecified atrial fibrillation; K02.9 Dental caries, unspecified; J44.9 Chronic obstructive pulmonary disease, unspecified; R73.9 Hyperglycemia, unspecified; Z79.899 Other long term (current) drug therapy
CPT/HCPCS: 80053; 85025; G0463; 36415; 99213

== ENCOUNTER 2022-05-24 14:09 | Outpatient (RCR) | payer MEDICARE, MEDICAID ==
[2022-05-24 14:28] LABS: BASOPHILS # (AUTO) 0.1 10^3/uL (0.0-0.1); BASOPHILS % (AUTO) 0 % (0-10); EOSINOPHILS # (AUTO) 0.2 10^3/uL (0.0-0.3); EOSINOPHILS % (AUTO) 0 % (0-10); HEMATOCRIT 44 % (40-54); HEMOGLOBIN 14.4 g/dL (13.3-17.7); LYMPHOCYTES # (AUTO) 39.7 10^3/uL (1.0-4.0); LYMPHOCYTES % (AUTO) 82 % (12-44); MEAN CORPUSCULAR HEMOGLOBIN 31 pg (25-34); MEAN CORPUSCULAR HGB CONC 33 g/dL (32-36); MEAN CORPUSCULAR VOLUME 93 fL (80-99); MEAN PLATELET VOLUME 11.7 fL (9.0-12.2); MONOCYTES # (AUTO) 0.6 10^3/uL (0.0-1.0); MONOCYTES % (AUTO) 1 % (0-12); NEUTROPHILS # (AUTO) 7.5 10^3/uL (1.8-7.8); NEUTROPHILS % (AUTO) 16 % (42-75); PLATELET COUNT 179 10^3/uL (130-400)
[2022-05-24 14:32] LABS: WHITE BLOOD COUNT 48.2 10^3/uL (4.3-11.0)
[2022-05-24 14:49] LABS: ALBUMIN 4.2 GM/DL (3.2-4.5); BILIRUBIN,TOTAL 1.7 MG/DL (0.1-1.0); CALCIUM 9.2 MG/DL (8.5-10.1); CREATININE SERUM 0.87 MG/DL (0.60-1.30); POTASSIUM 4.4 MMOL/L (3.6-5.0); TOTAL PROTEIN 6.8 GM/DL (6.4-8.2)
== END 2022-06-08 | disposition home or self-care (01) ==
LOC: ONC 14:09
PROVIDERS: ATTEND Internal Medicine Hematology & Oncology
DX: C91.10 Chronic lymphocytic leukemia of B-cell type not having achieved remission (principal); I48.91 Unspecified atrial fibrillation; K02.9 Dental caries, unspecified; R73.9 Hyperglycemia, unspecified; Z79.899 Other long term (current) drug therapy
CPT/HCPCS: 36415; 80053; 85025

== ENCOUNTER 2022-06-21 12:50 | Outpatient (RCR) | payer MEDICARE, MEDICAID ==
[2022-06-21 13:15] LABS: BASOPHILS # (AUTO) 0.1 10^3/uL (0.0-0.1); BASOPHILS % (AUTO) 0 % (0-10); EOSINOPHILS # (AUTO) 0.1 10^3/uL (0.0-0.3); EOSINOPHILS % (AUTO) 0 % (0-10); HEMATOCRIT 42 % (40-54); HEMOGLOBIN 13.6 g/dL (13.3-17.7); LYMPHOCYTES # (AUTO) 36.9 10^3/uL (1.0-4.0); LYMPHOCYTES % (AUTO) 84 % (12-44); MEAN CORPUSCULAR HEMOGLOBIN 31 pg (25-34); MEAN CORPUSCULAR HGB CONC 33 g/dL (32-36); MEAN CORPUSCULAR VOLUME 94 fL (80-99); MEAN PLATELET VOLUME 12.1 fL (9.0-12.2); MONOCYTES # (AUTO) 0.6 10^3/uL (0.0-1.0); MONOCYTES % (AUTO) 1 % (0-12); NEUTROPHILS % (AUTO) 14 % (42-75); PLATELET COUNT 159 10^3/uL (130-400)
[2022-06-21 13:23] LABS: WHITE BLOOD COUNT 43.9 10^3/uL (4.3-11.0)
[2022-06-21 13:32] LABS: ALBUMIN 4.1 GM/DL (3.2-4.5); BILIRUBIN,TOTAL 0.9 MG/DL (0.1-1.0); CALCIUM 9.1 MG/DL (8.5-10.1); CREATININE SERUM 1.01 MG/DL (0.60-1.30); POTASSIUM 4.1 MMOL/L (3.6-5.0); TOTAL PROTEIN 6.3 GM/DL (6.4-8.2)
== END 2022-07-08 | disposition home or self-care (01) ==
LOC: ONC 12:50
PROVIDERS: ATTEND Internal Medicine Hematology & Oncology
DX: C91.10 Chronic lymphocytic leukemia of B-cell type not having achieved remission (principal); C61 Malignant neoplasm of prostate; I48.91 Unspecified atrial fibrillation; K02.9 Dental caries, unspecified; Z79.899 Other long term (current) drug therapy; N20.0 Calculus of kidney
CPT/HCPCS: 36415; 80053; 85025

== ENCOUNTER 2022-07-19 12:46 | Outpatient (RCR) | payer MEDICARE, MEDICAID ==
[2022-07-19 13:45] LABS: BASOPHILS # (AUTO) 0.1 10^3/uL (0.0-0.1); BASOPHILS % (AUTO) 0 % (0-10); EOSINOPHILS # (AUTO) 0.1 10^3/uL (0.0-0.3); EOSINOPHILS % (AUTO) 0 % (0-10); HEMATOCRIT 44 % (40-54); HEMOGLOBIN 14.5 g/dL (13.3-17.7); LYMPHOCYTES % (AUTO) 90 % (12-44); MEAN CORPUSCULAR HEMOGLOBIN 31 pg (25-34); MEAN CORPUSCULAR HGB CONC 33 g/dL (32-36); MEAN CORPUSCULAR VOLUME 93 fL (80-99); MEAN PLATELET VOLUME 11.7 fL (9.0-12.2); MONOCYTES # (AUTO) 0.7 10^3/uL (0.0-1.0); MONOCYTES % (AUTO) 2 % (0-12); NEUTROPHILS # (AUTO) 2.4 10^3/uL (1.8-7.8); NEUTROPHILS % (AUTO) 7 % (42-75); PLATELET COUNT 181 10^3/uL (130-400)
[2022-07-19 13:47] LABS: WHITE BLOOD COUNT 33.5 10^3/uL (4.3-11.0)
[2022-07-19 14:06] LABS: ALBUMIN 4.3 GM/DL (3.2-4.5); BILIRUBIN,TOTAL 1.6 MG/DL (0.1-1.0); CALCIUM 8.6 MG/DL (8.5-10.1); CREATININE SERUM 0.85 MG/DL (0.60-1.30); POTASSIUM 4.3 MMOL/L (3.6-5.0); TOTAL PROTEIN 6.8 GM/DL (6.4-8.2)
== END 2022-08-08 | disposition home or self-care (01) ==
LOC: ONC 12:46
PROVIDERS: ATTEND Internal Medicine Hematology & Oncology
DX: C91.10 Chronic lymphocytic leukemia of B-cell type not having achieved remission (principal); I48.91 Unspecified atrial fibrillation; K02.9 Dental caries, unspecified; R73.9 Hyperglycemia, unspecified; M54.50 Low back pain, unspecified; M25.551 Pain in right hip; Z79.899 Other long term (current) drug therapy
CPT/HCPCS: 80053; 85025

== ENCOUNTER → 2022-08-03 | Outpatient (CLI) | payer MEDICARE, MEDICAID ==
--- NOTE | 2022-08-03 17:26 | Diagnostic Imaging Report ---
INDICATION: Right hip pain. AP and oblique views of the right hip are obtained. FINDINGS: No fracture or acute bony abnormality is seen. There is moderate joint space narrowing in the right hip with osteophyte formation. There is no lytic or blastic lesion. IMPRESSION: Moderate degenerative findings in the right hip with no acute bony abnormality. Dictated by: Dictated on workstation # [id number]
== END ==
LOC: RAD 12:11
PROVIDERS: ATTEND Internal Medicine Hematology & Oncology
DX: C91.90 Lymphoid leukemia, unspecified not having achieved remission (principal); M16.11 Unilateral primary osteoarthritis, right hip
CPT/HCPCS: 73502

== ENCOUNTER → 2022-08-23 | Outpatient (CLI) | payer MEDICARE, MEDICAID ==
[~2022-08-23] MED LIST changes: +GADOTERATE 0.5 MMOL/ML (CLARISCAN) 20 ML VIAL IV ONE
--- NOTE | 2022-08-23 14:27 | Diagnostic Imaging Report ---
EXAMINATION: Magnetic resonance imaging of the pelvis and right hip without and with contrast DATE: August 23, 2022. COMPARISON: CT abdomen and pelvis February 07, 2021. Right hip radiographs August 03, 2022. INDICATION: 72-year-old male, bilateral hip pain, right greater than left. History of leukemia. TECHNIQUE: Magnetic Resonance Imaging sequences were performed of the pelvis and right hip without and with intravenous contrast. TENDONS AND MUSCLES: The gluteus hugo muscles and their origins and insertions are intact bilaterally. The tendons and muscles of the greater trochanter - gluteus minimus, piriformis and gluteus medius - are intact bilaterally. Both common hamstring attachments on the ischial tuberosities are intact and the extensor muscles of the thigh are intact. The visualized portions of the flexors and adductor muscles of the thigh and their attachments on the pelvis and hips are intact. Both iliopsoas and iliacus muscles are intact. The bilateral iliopsoas tendons are intact. HIPS AND SACROILIAC JOINTS: There is a tear of the right hip anterosuperior labrum on sagittal PD fat saturation sequence image 12. There is no paralabral cyst. There is no discretely identified cartilage defect of the right hip. There is no hip joint effusion.. There is also a tear of the left hip anterosuperior labrum without paralabral cyst or visible cartilage defect. There is no left hip joint effusion. The sacroiliac joints are unremarkable. LUMBAR SPINE: There are mild disc degenerative changes at L3-L4 and L4-L5 with otherwise limited assessment of the lumbar spine. BONE: There is no acute fracture, bone contusion, or evidence of osteonecrosis. There is no concerning focal bone lesion. There is no evidence of a diffuse marrow infiltrating or replacing process. BURSAE AND SOFT TISSUES: There is no identified area of abnormal contrast enhancement. There is a T2 hyperintense nodule in the left side of the prostate measuring 1.8 cm in size which is nonspecific. IMPRESSION: 1. No focal concerning bone lesion or evidence of a diffuse marrow infiltrating or replacing process. 2. Tears of the anterior superior labrum of both hips without paralabral cyst or discretely identified cartilage defect. No hip joint effusion. 3. Intact muscles and tendons. 4. No acute fracture, bone contusion, or evidence of osteonecrosis. 5. Disc degenerative changes of the lower lumbar spine at L3-L4 and L4-L5. 6. Nonspecific 18 mm T2 hyperintense nodule in the left side of the prostate. Dictated by: Dictated on workstation # [id number]
== END ==
LOC: RAD 12:37
PROVIDERS: ATTEND Internal Medicine Hematology & Oncology
DX: M51.36 Other intervertebral disc degeneration, lumbar region (principal); S73.102A Unspecified sprain of left hip, initial encounter; S73.101A Unspecified sprain of right hip, initial encounter; N40.2 Nodular prostate without lower urinary tract symptoms; C91.90 Lymphoid leukemia, unspecified not having achieved remission
CPT/HCPCS: 72197; 73723

== ENCOUNTER 2022-08-27 10:14 | Outpatient (RCR) | payer MEDICARE, MEDICAID ==
[2022-08-20 15:12] LABS: BASOPHILS # (AUTO) 0.1 10^3/uL (0.0-0.1); BASOPHILS % (AUTO) 0 % (0-10); EOSINOPHILS # (AUTO) 0.2 10^3/uL (0.0-0.3); EOSINOPHILS % (AUTO) 1 % (0-10); HEMATOCRIT 44 % (40-54); HEMOGLOBIN 14.8 g/dL (13.3-17.7); LYMPHOCYTES # (AUTO) 32.6 10^3/uL (1.0-4.0); LYMPHOCYTES % (AUTO) 81 % (12-44); MEAN CORPUSCULAR HEMOGLOBIN 31 pg (25-34); MEAN CORPUSCULAR HGB CONC 34 g/dL (32-36); MEAN CORPUSCULAR VOLUME 92 fL (80-99); MONOCYTES # (AUTO) 0.6 10^3/uL (0.0-1.0); MONOCYTES % (AUTO) 1 % (0-12); NEUTROPHILS # (AUTO) 6.7 10^3/uL (1.8-7.8); NEUTROPHILS % (AUTO) 17 % (42-75); PLATELET COUNT 164 10^3/uL (130-400)
[2022-08-20 15:15] LABS: WHITE BLOOD COUNT 40.3 10^3/uL (4.3-11.0)
[2022-08-20 15:33] LABS: ALBUMIN 4.2 GM/DL (3.2-4.5); BILIRUBIN,TOTAL 1.6 MG/DL (0.1-1.0); CALCIUM 8.9 MG/DL (8.5-10.1); CREATININE SERUM 0.89 MG/DL (0.60-1.30); POTASSIUM 4.1 MMOL/L (3.6-5.0); TOTAL PROTEIN 6.6 GM/DL (6.4-8.2)
[~2022-08-27 10:14] MED LIST changes: -GADOTERATE 0.5 MMOL/ML (CLARISCAN) 20 ML VIAL IV ONE
== END 2022-09-07 | disposition still patient (30) ==
LOC: ONC 10:14
PROVIDERS: ATTEND Internal Medicine Hematology & Oncology
DX: C91.90 Lymphoid leukemia, unspecified not having achieved remission (principal); J44.9 Chronic obstructive pulmonary disease, unspecified
CPT/HCPCS: 80053; 85025

== ENCOUNTER 2022-11-01 13:40 | Outpatient (RCR) | payer MEDICARE, MEDICAID ==
[2022-11-01 14:07] LABS: BASOPHILS # (AUTO) 0.1 10^3/uL (0.0-0.1); BASOPHILS % (AUTO) 0 % (0-10); EOSINOPHILS # (AUTO) 0.2 10^3/uL (0.0-0.3); EOSINOPHILS % (AUTO) 1 % (0-10); HEMATOCRIT 47 % (40-54); HEMOGLOBIN 15.8 g/dL (13.3-17.7); LYMPHOCYTES # (AUTO) 15.1 10^3/uL (1.0-4.0); LYMPHOCYTES % (AUTO) 68 % (12-44); MEAN CORPUSCULAR HEMOGLOBIN 31 pg (25-34); MEAN CORPUSCULAR HGB CONC 34 g/dL (32-36); MEAN CORPUSCULAR VOLUME 93 fL (80-99); MONOCYTES # (AUTO) 0.6 10^3/uL (0.0-1.0); MONOCYTES % (AUTO) 3 % (0-12); NEUTROPHILS # (AUTO) 6.1 10^3/uL (1.8-7.8); NEUTROPHILS % (AUTO) 28 % (42-75); PLATELET COUNT 175 10^3/uL (130-400); WHITE BLOOD COUNT 22.1 10^3/uL (4.3-11.0)
[2022-11-01 14:16] LABS: ALBUMIN 4.3 GM/DL (3.2-4.5); BILIRUBIN,TOTAL 1.5 MG/DL (0.1-1.0); CALCIUM 8.9 MG/DL (8.5-10.1); CREATININE SERUM 1.12 MG/DL (0.60-1.30); POTASSIUM 4.5 MMOL/L (3.6-5.0); TOTAL PROTEIN 6.6 GM/DL (6.4-8.2)
== END 2022-11-08 | disposition home or self-care (01) ==
LOC: ONC 13:40
PROVIDERS: ATTEND Internal Medicine Hematology & Oncology
DX: C91.90 Lymphoid leukemia, unspecified not having achieved remission (principal); J44.9 Chronic obstructive pulmonary disease, unspecified
CPT/HCPCS: 80053; 85025; G0463; 36415; 99214

== ENCOUNTER 2023-01-07 13:42 | Outpatient (RCR) | payer MEDICARE, MEDICAID ==
[2022-12-27 14:10] LABS: BASOPHILS # (AUTO) 0.1 10^3/uL (0.0-0.1); BASOPHILS % (AUTO) 0 % (0-10); EOSINOPHILS # (AUTO) 0.2 10^3/uL (0.0-0.3); EOSINOPHILS % (AUTO) 1 % (0-10); HEMATOCRIT 42 % (40-54); HEMOGLOBIN 13.6 g/dL (13.3-17.7); LYMPHOCYTES # (AUTO) 15.2 10^3/uL (1.0-4.0); LYMPHOCYTES % (AUTO) 76 % (12-44); MEAN CORPUSCULAR HEMOGLOBIN 31 pg (25-34); MEAN CORPUSCULAR HGB CONC 33 g/dL (32-36); MEAN CORPUSCULAR VOLUME 95 fL (80-99); MEAN PLATELET VOLUME 11.7 fL (9.0-12.2); MONOCYTES # (AUTO) 0.6 10^3/uL (0.0-1.0); MONOCYTES % (AUTO) 3 % (0-12); NEUTROPHILS # (AUTO) 3.9 10^3/uL (1.8-7.8); NEUTROPHILS % (AUTO) 19 % (42-75); PLATELET COUNT 159 10^3/uL (130-400)
[2022-12-27 14:34] LABS: ALBUMIN 4.2 GM/DL (3.2-4.5); BILIRUBIN,TOTAL 1.3 MG/DL (0.1-1.0); CALCIUM 8.9 MG/DL (8.5-10.1); CREATININE SERUM 0.87 MG/DL (0.60-1.30); TOTAL PROTEIN 6.6 GM/DL (6.4-8.2)
[2023-01-07 14:58] LABS: BASOPHILS % (AUTO) 0 % (0-10); EOSINOPHILS # (AUTO) 0.1 10^3/uL (0.0-0.3); EOSINOPHILS % (AUTO) 1 % (0-10); HEMATOCRIT 41 % (40-54); HEMOGLOBIN 13.6 g/dL (13.3-17.7); LYMPHOCYTES # (AUTO) 6.3 X 10^3 (1.0-4.0); LYMPHOCYTES % (AUTO) 58 % (12-44); MEAN CORPUSCULAR HEMOGLOBIN 31 pg (25-34); MEAN CORPUSCULAR HGB CONC 33 g/dL (32-36); MEAN CORPUSCULAR VOLUME 95 fL (80-99); MEAN PLATELET VOLUME 11.1 fL (9.0-12.2); MONOCYTES # (AUTO) 0.6 X 10^3 (0.0-1.0); MONOCYTES % (AUTO) 6 % (0-12); NEUTROPHILS # (AUTO) 3.9 X 10^3 (1.8-7.8); NEUTROPHILS % (AUTO) 35 % (42-75); PLATELET COUNT 155 10^3/uL (130-400); WHITE BLOOD COUNT 10.9 10^3/uL (4.3-11.0)
[2023-01-07 15:24] LABS: ALBUMIN 4.2 GM/DL (3.2-4.5); BILIRUBIN,TOTAL 1.6 MG/DL (0.1-1.0); CALCIUM 9.5 MG/DL (8.5-10.1); CREATININE SERUM 0.95 MG/DL (0.60-1.30); TOTAL PROTEIN 6.4 GM/DL (6.4-8.2)
== END 2023-01-08 | disposition home or self-care (01) ==
LOC: ONC 13:42
PROVIDERS: ATTEND Internal Medicine Hematology & Oncology
DX: C91.90 Lymphoid leukemia, unspecified not having achieved remission (principal); C61 Malignant neoplasm of prostate; J44.9 Chronic obstructive pulmonary disease, unspecified; M51.36 Other intervertebral disc degeneration, lumbar region; K02.9 Dental caries, unspecified; I48.91 Unspecified atrial fibrillation; E87.5 Hyperkalemia; Z87.19 Personal history of other diseases of the digestive system
CPT/HCPCS: 80053; 85025; G0463; 36415; 99214

== ENCOUNTER 2023-02-04 12:53 | Outpatient (RCR) | payer MEDICARE, MEDICAID ==
[2023-02-04 13:35] LABS: HEMATOCRIT 43 % (40-54); HEMOGLOBIN 14.1 g/dL (13.3-17.7); MEAN CORPUSCULAR HEMOGLOBIN 31 pg (25-34); MEAN CORPUSCULAR HGB CONC 33 g/dL (32-36); MEAN CORPUSCULAR VOLUME 94 fL (80-99); MEAN PLATELET VOLUME 10.9 fL (9.0-12.2); PLATELET COUNT 190 10^3/uL (130-400)
[2023-02-04 13:53] LABS: ALBUMIN 4.3 GM/DL (3.2-4.5); BILIRUBIN,TOTAL 2.1 MG/DL (0.1-1.0); CALCIUM 9.1 MG/DL (8.5-10.1); CREATININE SERUM 0.8 MG/DL (0.60-1.30); POTASSIUM 4.4 MMOL/L (3.6-5.0); TOTAL PROTEIN 6.6 GM/DL (6.4-8.2)
== END 2023-02-07 | disposition home or self-care (01) ==
LOC: ONC 12:53
PROVIDERS: ATTEND Internal Medicine Hematology & Oncology
DX: C91.90 Lymphoid leukemia, unspecified not having achieved remission (principal); C61 Malignant neoplasm of prostate; J44.9 Chronic obstructive pulmonary disease, unspecified; M51.36 Other intervertebral disc degeneration, lumbar region; K02.9 Dental caries, unspecified; I48.91 Unspecified atrial fibrillation; E87.5 Hyperkalemia; N20.0 Calculus of kidney; Z87.19 Personal history of other diseases of the digestive system
CPT/HCPCS: 80053; 85027; G0463; 99214